=== PATIENT | female | born 1975 | race Caucasian/White ===

== ENCOUNTER 2021-02-02 12:33 | Emergency (ER) | payer OTHER, SELFPAY ==
--- NOTE | ~2021-02-02 | XR_ITS ---
EXAMINATION: XR chest 2V DATE: 02/02/2021 13:13 INDICATION: Shortness of breath. Chest tightness. TECHNIQUE: Frontal and lateral views of the chest were obtained. COMPARISON: Chest 2 views 04/08/2017 FINDINGS: The chest demonstrates clear lungs without pneumonia, pleural effusion, or pneumothorax. Th e heart size is normal. IMPRESSION: 1. No acute cardiopulmonary disease. Reviewed, dictated and finalized at location A.
[2021-02-02 12:40] VITALS: BP 136/86; PULSE 87; RESP 20; TEMP 37.4; O2SAT 98
[2021-02-02 12:41] VITALS: BP 136/86; PULSE 87; RESP 20; TEMP 37.4; O2SAT 98
--- NOTE | 2021-02-02 13:00 | ED.URI ---
HPI - URI/Sore Throat General Chief Complaint: Upper Respiratory Infection Stated Complaint: chest pain,sob,back pain Time Seen by Provider: 02/02/21 13:00 Source: patient Mode of arrival: ambulatory Limitations: no limitations History of Present Illness HPI Narrative: Katiuska Johnson is a 45 yo female with a PMH of depression and HTN comes to express care with URI and left-sided posterior back pain that started 2 to 3 days ago and has gotten continually worse she states now that hurts every time she takes a deep breath and when she tries to raise her hands over her head it causes deep aching pain. She does work out but denies changing anything in her work-up; she has a mild cough in the morning states been, coughing up a lot of mucus; afebrile Related Data Home Medications Medication Instructions Recorded Confirmed levonorgestrel 20 mcg/24 hours (6 1 device I-UTERINE ONCE 10/07/19 06/28/20 yrs) 52 mg intrauterine device omega [id number] oil 1,000 mg 1 cap PO DAILY 10/07/19 06/28/20 (120 mg-180 mg) capsule buspirone 10 mg tablet 10 mg PO DAILY tablet 12/20/19 06/28/20 trazodone 50 mg tablet 50 mg PO DAILY tablet 06/28/20 06/28/20 Allergies Allergy/AdvReac Type Severity Reaction Status Date / Time codeine Allergy Unknown Unknown Verified 10/16/20 14:10 Review of Systems Review of Systems: Narrative: CONSTITUTIONAL: Denies fever, chills, sweats. EYES: Denies visual changes, redness, discharge. ENT: Denies rhinorrhea, mild congestion, sore throat, otalgia. CARDIOVASCULAR: Denies chest pain, palpitations, edema. RESPIRATORY: Denies dyspnea, wheezing, cough GASTROINTESTINAL: Denies abdominal pain, nausea, vomiting, diarrhea. GENITOURINARY: Denies dysuria, hematuria, abnormal discharge SKIN: Denies rash or itching. NEUROLOGIC: Denies numbness, or focal weakness. PSYCHIATRIC: Denies anxiety or depression. Left-sided posterior back pain PMFSH Past Medical History Medical History (Updated 02/02/21 @ 13:34 by Demetria Nicole CNP) Anxiety Cervical dysplasia Depression High cholesterol Missed 2007 Pneumonia 2004 Vaginal delivery 2008 Surgical History Surgical History H/O LEEP 12/12/2014 Hx of laparoscopy 1991 Family History Family History Father Hypertension Patient's father is Family history of elevated blood lipids Family history of lung cancer Mother Family history of elevated blood lipids Family history of malignant neoplasm of cervix Family history of coronary artery disease Hypertension Acute myocardial infarction Depression Cerebrovascular accident Family history of arthritis Family history of lung cancer Family history of malignant neoplasm of male breast Grandparent Family history of malignant neoplasm of ovary, Onset Age: 56 Other Family history of development disorder Family history of heart disease in male family member before age 55 Family history of malignant neoplasm Social History Social History Smoking status: Former smoker Second hand tobacco smoke exposure: No Smoking end date: 10/12/06 Alcohol intake: never Comments At time of signature, I agree with nursing past medical, surgical, social and family history. There is no relevant family history pertinent to the presenting complaint. Exam Narrative: Exam Narrative: GENERAL: This is a well-nourished, well-developed patient, in mild distress. HEAD: normocephalic, atraumatic. EYES: PERRL. Sclera clear/white. Vision is grossly intact. EARS: External ears normal, auditory canals clear and without drainage, TMs normal without perforation. Hearing grossly intact. NOSE: External nose normal without nasal discharge, nares without redness, no rhinorrhea. THROAT: Mucous membranes moist, posterior pharynx
== END 2021-02-02 13:50 | disposition home or self-care (01) ==
PROVIDERS: Emergency Provider Nurse Practitioner; PCP Family Medicine
DX: R07.89 Other chest pain (principal); R05 Cough; Z20.822 Contact with and (suspected) exposure to COVID-19; C41.9 Malignant neoplasm of bone and articular cartilage, unspecified; F32.9 Major depressive disorder, single episode, unspecified; E78.00 Pure hypercholesterolemia, unspecified; N87.9 Dysplasia of cervix uteri, unspecified
CPT/HCPCS: 71046; 87426; 87804; 99213; C9803; G0463

== ENCOUNTER → 2021-04-22 12:41 | Outpatient (CLI) | payer OTHER, SELFPAY ==
--- NOTE | ~2021-04-22 | MM_ITS ---
EXAMINATION: MM screening leonidas BI w zara HISTORY: Screening mammogram, family history of breast cancer in her mother. TECHNIQUE: Craniocaudal and mediolateral oblique 3-D tomosynthesis images were obtained and synthetic 2-D images were generated. CAD analysis was submitted and interpreted. COMPARISON: 10/15/2019, 05/12/2013, 06/13/2010 BREAST PARENCHYMAL COMPOSITION: There are scattered areas of fibroglandular density. FINDINGS: There is no evidence of suspicious mass, calcification, or architectural distortion to sugg est malignancy in either breast. There has been no suspicious interval change. IMPRESSION: 1. No mammographic evidence of malignancy. 2. Recommend routine screening mammography in one year. BI-RADS Category 1: Negative Reviewed, dictated and finalized at location A.
== END ==
PROVIDERS: PCP Family Medicine; Visit Provider Student in an Organized Health Care Education/Training Program
DX: Z12.31 Encounter for screening mammogram for malignant neoplasm of breast (principal)
CPT/HCPCS: 77063; 77067

== ENCOUNTER 2021-12-31 17:36 | Emergency (ER) | payer OTHER, SELFPAY ==
--- NOTE | 2021-12-31 17:37 | ED.URI ---
HPI - URI/Sore Throat General Chief Complaint: Upper Respiratory Infection Stated Complaint: Body Aches, Sore Throat,Congestion,Cough Time Seen by Provider: 12/31/21 18:16 Source: patient and RN notes reviewed Mode of arrival: ambulatory Limitations: no limitations History of Present Illness HPI Narrative: 46-year-old female presents with concern for 1 day history of sore throat, chills, body aches, cough. She reports symptoms started today. 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 She reports she had COVID in September. She denies intervention. MD elicited complaint: sore throat and other (chills) Related Data Home Medications Medication Instructions Recorded Confirmed trazodone 50 mg tablet 50 mg PO DAILY tablet 06/28/20 12/31/21 buspirone 15 mg tablet 15 mg PO ONCE tablet 09/20/21 12/31/21 fluoxetine 40 mg capsule 40 mg PO DAILY cap 09/20/21 12/31/21 levonorgestrel [Mirena] 1 device INTRAUTERINE ONCE 12/31/21 12/31/21 Allergies Allergy/AdvReac Type Severity Reaction Status Date / Time codeine Allergy Unknown Unknown Verified 12/31/21 17:59 Review of Systems Review of Systems: CONSTITUTIONAL: Reports malaise, chills, sweats, fever. EYES: Denies visual changes, redness, or discharge. ENT: Reports rhinorrhea, congestion, sore throat. CARDIOVASCULAR: Denies chest pain, palpitations, or edema. RESPIRATORY: Reports cough. Denies dyspnea. GASTROINTESTINAL: Denies abdominal pain, nausea, vomiting, diarrhea SKIN: Denies rash or itching. MUSCULOSKELETAL: Reports myalgia. NEUROLOGIC: Denies headache. All systems reviewed & are unremarkable except as noted in HPI and below PMFSH Past Medical History Medical History (Updated 12/31/21 @ 18:26 by Joyce Rodriguez NP) Anxiety Cervical dysplasia Depression High cholesterol Missed 2007 Pneumonia 2004 Vaginal delivery 2007 Surgical History Surgical History H/O LEEP 12/12/2014 Hx of laparoscopy 1990 Family History Family History Father Hypertension Patient's father is Family history of elevated blood lipids Family history of lung cancer Mother Family history of elevated blood lipids Family history of malignant neoplasm of male breast Family history of malignant neoplasm of cervix Family history of coronary artery disease Hypertension Acute myocardial infarction Depression Cerebrovascular accident Family history of arthritis Family history of lung cancer Grandparent Family history of malignant neoplasm of ovary, Onset Age: 56 Other Family history of development disorder Family history of heart disease in male family member before age 55 Family history of malignant neoplasm Social History Social History Smoking status: Former smoker Second hand tobacco smoke exposure: No Smoking end date: 10/12/06 Alcohol intake: never Comments At time of signature, agree with nursing past medical, surgical, social and family history. There is no relevant family history pertinent to the presenting complaint Exam Narrative: GENERAL: Nontoxic-appearing and in no acute distress. HEAD: Normocephalic EYES: PERRLA, conjunctivae clear ENT: Nares clear, clear discharge. Mucous membranes moist. TM pearly malagon with sharp light reflex bilaterally; no tragal tenderness. Oropharynx not erythematous without lesions. Tonsils not enlarged and without exudate, no drooling, no hoarseness, no trismus, uvula midline. NECK: Supple. No lymphadenopathy CHEST: Clear to auscultation, breath sounds equal. No wheezing, rhonchi, rales, or stridor. No respiratory distress, speaks in full sentences. HEART: Regular rate and rhythm. No murmur heard. SKIN: Warm, dry, no rash. NEURO: Alert and oriented x3. PSYCH: Normal mood and affect Course Course Emergency Course: Hyun
[2021-12-31 17:52] VITALS: BP 154/98; PULSE 80; RESP 18; TEMP 37.3; O2SAT 100
[2021-12-31 20:06] LABS: SARS-CoV-2 RNA PCR Negative
== END 2021-12-31 18:30 | disposition home or self-care (01) ==
PROVIDERS: Emergency Provider Nurse Practitioner
DX: B34.9 Viral infection, unspecified (principal); Z20.822 Contact with and (suspected) exposure to COVID-19; Z87.891 Personal history of nicotine dependence; E78.00 Pure hypercholesterolemia, unspecified; F41.9 Anxiety disorder, unspecified; F32.A Depression, unspecified
CPT/HCPCS: 87081; 87804; 87880; 99213; C9803; G0463; U0003; U0005

== ENCOUNTER 2022-01-10 01:22 | Day surgery (SDC) | payer OTHER, SELFPAY ==
--- NOTE | 2022-01-09 13:56 | WPDANESEPPF ---
Anes - Initial Pre Proc Eval Procedure: Operation Date: 01/10/22 08:00 Proposed Procedures p Screening Colonoscopy - Neville Olivarez MD Date/Time: 01/09/22 13:56 Surgeon: Neville Olivarez MD Pre Op Diagnosis: neoplasm screening Patient Data Age: 46 Gender: F Height: 1.63 m Weight: 65.9 kg Allergies Allergy/AdvReac Type Severity Reaction Status Date / Time codeine Allergy Intermediate Hives Verified 01/10/22 06:53 Home Medications Medication Instructions Recorded Confirmed Type trazodone 50 mg tablet 50 mg PO HS tablet 06/28/20 01/10/22 History buspirone 15 mg tablet 15 mg PO TID PRN tablet 09/20/21 01/02/22 History fluoxetine 40 mg capsule 40 mg PO DAILY cap 09/20/21 01/02/22 History quinapril 20 mg tablet 20 mg PO DAILY #90 tablet 09/20/21 01/02/22 Rx levonorgestrel [Mirena] 1 device INTRAUTERINE ONCE 12/31/21 01/02/22 History diltiazem HCl 180 mg PO DAILY 01/02/22 01/02/22 History benzonatate 200 mg PO TID PRN #30 cap 01/04/22 01/10/22 Rx Patient hx anesthesia problems: none Family hx anesthesia problems: none Results Review: All pre-operative results and documents have been reviewed as part of the pre-operative evaluation. [facility] Past Medical History Medical History (Updated 01/09/22 @ 13:56 by Blake Vazquez MD) Anxiety Cervical dysplasia Depression High cholesterol Hyperlipidemia Hypertension Missed 2007 Pneumonia 2004 Vaginal delivery 2007 Surgical History Surgical History H/O LEEP 12/12/2014 Hx of laparoscopy 1990 Family History Family History Father Hypertension Patient's father is Family history of elevated blood lipids Family history of lung cancer Mother Family history of elevated blood lipids Family history of malignant neoplasm of male breast Family history of malignant neoplasm of cervix Family history of coronary artery disease Hypertension Acute myocardial infarction Depression Cerebrovascular accident Family history of arthritis Family history of lung cancer Grandparent Family history of malignant neoplasm of ovary, Onset Age: 56 Other Family history of development disorder Family history of heart disease in male family member before age 55 Family history of malignant neoplasm Social History Social History Smoking status: Never smoker Second hand tobacco smoke exposure: No Smoking end date: 10/12/06 Alcohol intake: current Drinks per week: 6 Alcohol use details: social drinker Substance use: current Substance use type: marijuana Living arrangements: with family Spiritual care concerns: No Anes - Eval Final PreProcedure Day of Procedure 01/09/22 13:56 Patient weight: normal Heart: regular rate and rhythm Lungs: clear to auscultation and normal air movement Airway: Mallampati scale class II Neurological: alert and oriented Last oral intake: >/= 8 hours ASA classification: II Emergent: no Anesthetic plan: proceed Anesthesia type and monitoring: general GIVS Results Review: All pre-operative results and documents have been reviewed as part of the pre-operative evaluation. Informed Consent: The patient's anesthetic plan and its attendant risks and benefits were discussed with the patient/family/POA. Questions were solicited and answers provided to the satisfaction of the patient/family/POA.
[2022-01-10 06:55] VITALS: BP 150/97; PULSE 69; RESP 16; TEMP 36.9; O2SAT 97
[2022-01-10] MEDS: LACTATED RINGERS 1,000 ML 150 ML IV CONT (07:13)
--- NOTE | 2022-01-10 07:51 | PM.HPGS ---
History of Present Illness History of Present Illness Consent: Risks, benefits, and alternatives have been discussed and questions answered. Patient agrees to proceed with procedure. Chief complaint: neoplasm screening Narrative: Katiuska Johnson is a 46 year old female here for screening colonoscopy Review of Systems Constitutional: Constitutional: Denies headache(s) and Denies weakness Eyes: Eyes: Denies blurry vision ENT: Reports Normal hearing present, Denies headache(s) and Denies neck pain Cardiovascular: Cardiovascular: Denies chest pain and Denies dyspnea Respiratory: Respiratory: Denies dyspnea Gastrointestinal: Gastrointestinal: Reports no additional gastrointestinal complaints Genitourinary: Genitourinary: Denies dysuria Musculoskeletal: Musculoskeletal: Denies neck pain Integumentary/Breasts: Skin/Breast: Denies dry skin Neurologic: Reports Normal hearing present, Denies headache(s) and Denies weakness Psychiatric: Psychiatric: Denies anxiety Endocrine: Endocrine: Denies change in body appearance Hematologic/Lymphatic: Hematologic/Lymphatic: Denies easy bleeding Allergic/Immunologic: Allergic/Immunologic: Denies urticaria PMF Past Medical History Medical History (Updated 01/10/22 @ 07:52 by Neville Olivarez MD) Anxiety Cervical dysplasia Colon cancer screening Depression High cholesterol Hyperlipidemia Hypertension Missed 2007 Pneumonia 2004 Vaginal delivery 2007 Surgical History Surgical History H/O LEEP 12/12/2014 Hx of laparoscopy 1991 Family History Family History Father Hypertension Patient's father is Family history of elevated blood lipids Family history of lung cancer Mother Family history of elevated blood lipids Family history of malignant neoplasm of male breast Family history of malignant neoplasm of cervix Family history of coronary artery disease Hypertension Acute myocardial infarction Depression Cerebrovascular accident Family history of arthritis Family history of lung cancer Grandparent Family history of malignant neoplasm of ovary, Onset Age: 56 Other Family history of development disorder Family history of heart disease in male family member before age 55 Family history of malignant neoplasm Social History Social History Smoking status: Never smoker Second hand tobacco smoke exposure: No Smoking end date: 10/12/06 Alcohol intake: current Drinks per week: 6 Alcohol use details: social drinker Substance use: current Substance use type: marijuana Living arrangements: with family Spiritual care concerns: No Meds Home Medications and Allergies Home Medications Medication Instructions Recorded Confirmed Type trazodone 50 mg tablet 50 mg PO HS tablet 06/28/20 01/10/22 History buspirone 15 mg tablet 15 mg PO TID PRN tablet 09/20/21 01/02/22 History fluoxetine 40 mg capsule 40 mg PO DAILY cap 09/20/21 01/02/22 History quinapril 20 mg tablet 20 mg PO DAILY #90 tablet 09/20/21 01/02/22 Rx levonorgestrel [Mirena] 1 device INTRAUTERINE ONCE 12/31/21 01/02/22 History diltiazem HCl 180 mg PO DAILY 01/02/22 01/02/22 History benzonatate 200 mg PO TID PRN #30 cap 01/04/22 01/10/22 Rx Allergies Allergy/AdvReac Type Severity Reaction Status Date / Time codeine Allergy Intermediate Hives Verified 01/10/22 06:53 Vital Signs Vital Signs - 24 hr 01/10/22 06:55 Temperature 98.4 F Pulse Rate 69 Respiratory Rate 16 Blood Pressure 150/97 H Pulse Oximetry 97 Exam Const: General: comfortable and no acute distress HENMT: General nose exam: Normal nares present Eyes: General: appearance normal, both eyes and all related structures Neck: Neck: no JVD Resp: Auscultation: clear to a
[2022-01-10 08:13] VITALS: BP 119/87; PULSE 61; RESP 14; O2SAT 100
[2022-01-10 08:23] VITALS: BP 131/91; PULSE 60; RESP 13; O2SAT 99
[2022-01-10 08:33] VITALS: BP 141/87; PULSE 62; RESP 18; O2SAT 99
== END 2022-01-10 08:53 | disposition home or self-care (01) ==
PROVIDERS: Visit Provider Internal Medicine Gastroenterology
PROC: 0DJD8ZZ Inspection of Lower Intestinal Tract, Via Natural or Artificial Opening Endoscopic (ICD-10-PCS; CPT 45378; principal; 2022-01-10 08:00)
DX: Z12.11 Encounter for screening for malignant neoplasm of colon (principal); K57.30 Diverticulosis of large intestine without perforation or abscess without bleeding; K64.8 Other hemorrhoids; I10 Essential (primary) hypertension; E78.5 Hyperlipidemia, unspecified; F41.8 Other specified anxiety disorders; F12.90 Cannabis use, unspecified, uncomplicated
CPT/HCPCS: 45378; J2001; J2704; J7120

== ENCOUNTER → 2022-07-17 08:05 | Outpatient (CLI) | payer OTHER, SELFPAY ==
--- NOTE | ~2022-07-17 | US_ITS ---
EXAMINATION: US abdomen complete DATE: 07/17/2022 08:30 INDICATION: Abdominal pain. TECHNIQUE: Multiple grayscale and Doppler ultrasound images of the abdomen were obtained. COMPARISON: None FINDINGS: The spleen is normal in size. The kidneys are normal in size. Abdominal aorta is normal in caliber. Inferior vena cava is normal. The visualized portions of the head of the pancreas are normal . The liver is normal without focal lesion. No liver surface nodularity. There is normal flow in main portal vein. The gallbladder is normal in size. No gallstones or gallbladder wall thickening. There was no sonographic Henriquez sign. The common duct is normal and measures 4 mm. IMPRESSION: 1. Normal complete abdomen ultrasound. Reviewed, dictated and finalized at location A.
== END ==
PROVIDERS: PCP Nurse Practitioner; Visit Provider Nurse Practitioner
DX: R10.9 Unspecified abdominal pain (principal)
CPT/HCPCS: 76700

== ENCOUNTER 2022-10-10 13:57 | Emergency (ER) | payer OTHER, SELFPAY ==
[2022-10-10 14:06] VITALS: BP 139/89; PULSE 70; RESP 16; TEMP 36.5; O2SAT 99
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
== END 2022-10-10 14:24 | disposition home or self-care (01) ==
PROVIDERS: Emergency Provider Nurse Practitioner; PCP Nurse Practitioner
DX: H57.11 Ocular pain, right eye (principal); Z87.891 Personal history of nicotine dependence; E78.5 Hyperlipidemia, unspecified; I10 Essential (primary) hypertension; F41.9 Anxiety disorder, unspecified; F32.A Depression, unspecified
CPT/HCPCS: 99213; G0463

== ENCOUNTER 2023-12-09 08:33 | Emergency (ER) | payer OTHER, SELFPAY ==
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
[2023-12-09 08:41] VITALS: BP 155/92; PULSE 84; RESP 18; TEMP 36.3; O2SAT 100
[2023-12-09] MEDS: KETOROLAC (*BKC) 60 MG/2 ML VIAL IM (08:53)
--- NOTE | 2023-12-09 08:56 | PC.NURSE ---
Pt to CT scan via stretcher at this time.
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
[2023-12-09 09:50] VITALS: BP 148/93; PULSE 69; RESP 18; O2SAT 100
== END 2023-12-09 09:51 | disposition home or self-care (01) ==
PROVIDERS: Emergency Provider Emergency Medicine
DX: S16.1XXA Strain of muscle, fascia and tendon at neck level, initial encounter (principal); R51.9 Headache, unspecified; E78.5 Hyperlipidemia, unspecified; I10 Essential (primary) hypertension; F43.10 Post-traumatic stress disorder, unspecified; F41.9 Anxiety disorder, unspecified; F32.A Depression, unspecified; Z87.01 Personal history of pneumonia (recurrent); Z87.891 Personal history of nicotine dependence; M47.812 Spondylosis without myelopathy or radiculopathy, cervical region; V43.52XA Car driver injured in collision with other type car in traffic accident, initial encounter
CPT/HCPCS: 70450; 72125; 96372; 99284; J1885; L0140

== ENCOUNTER 2024-12-17 12:34 | Emergency (ER) | payer OTHER, SELFPAY ==
--- NOTE | ~2024-12-17 | XR_ITS ---
XR hip RT 2V w AP pelvis Ordering provider: Susan Fernandez APRN History: . rt hip pain, no trauma . Comparison: None. FINDINGS: BONES: No definite acute fracture or dislocation. Lucency is seen in the area of the greater trochant er. Clinical evaluation for tenderness in the area advised. If clinically warranted CT is advised. Postoperative changes in the femur. HIP JOINT SPACES: Normal. SACROILIAC JOINT SPACES/LUMBAR SPINE: The sacroiliac joint spaces are normal. Normal visualized lower lumbar spine. PUBIC SYMPHYSIS: Normal. SOFT TISSUES: Normal. IMPRESSION: No definite acute osseous abnormality pelvis and right hip. Possible lucency in the area of the right greater trochanter. Reviewed, dictated and finalized at location A.
--- NOTE | ~2024-12-17 | XR_ITS ---
EXAMINATION: XR lumbar spine 2-3V DATE: 12/17/2024 13:58 INDICATION: Low back pain. TECHNIQUE: 3 views of lumbar spine were obtained. COMPARISON: None. FINDINGS: Alignment is normal. Vertebral body heights are normal. There is mildly decreased disc heig ht at L3-L4 and L4-L5. There is multilevel facet joint osteoarthritis, moderate in lower lumbar spine . There is an intrauterine device in expected position. IMPRESSION: 1. Mild lumbar spondylosis. Reviewed, dictated and finalized at location A. UREMENT BUYER IMPRESSION: 1. Mild lumbar spondylosis.
--- OUTSIDE RECORDS SUMMARY | 2024-12-17 12:37 | XMS_ITS | Encounter Summary ---
Author Organization [facility] Health Address [address] [place] [address] Care Team Providers Care Product Marketing Intern Name Role Phone Geena Avila Primary Care Provider [phone] Solange Sandoval MD Primary Care Provider Encounter Details Date Type Department Care Team (Late st Contact Info) Description 04/15/2022 Ophth Exam [facility] [address] [place] [address] Tej Hall MD [facility] [address] [address] Social History Tobacco Use Types Packs/Day Years Used Date Smoking Tobacco: Former Smokeless Tobacco: Never Alcohol Use Standard Drinks/Week Comments Yes 0 (1 standard drink = 0.6 oz pur e alcohol) socially AUDIT-C Answer Date Recorded Q1: How often do you have a drink containing alcohol? 4 or more times a week 04/14/2022 Q2: How many drinks containi ng alcohol do you have on a typical day when you are drinking? 1 or 2 2 Q3: How often do you have si x or more drinks on one occasion? Monthly 04/14/2022 Hunger Vital Sign Answer Date Recorded Within the past 12 months, y ou worried that your food would run out before you got the money to buy more. Never true 04/15/20 22 Within the past 12 months, t he food you bought just didn't last and you didn't have money to get more. Never true 04/15/2022 Sex and Gender Information Value Date Recorded Sex Assigned at Not on file Gender Identity Not on file Sexual Orientation Not on file documented as of this encounter Functional Status Functional Status Response Date of Assess ment Is person deaf or have serious hearing difficult y? No 04/13/2022 Is person blind or have serious difficulty seein g? No 04/13/2022 Does person have serious dif ficulty walking/climbing stairs? No 04/13/2022 Does person have difficulty dressing/bathing? No 04/13/2022 Does person have difficulty doing errands alone? No 04/13/2022 Cognitive Status Response Date of Assessm ent Does person have difficulty concentrating/remembering/making decisions? No 04/13/2022 documented as of this encounter Plan of Treatment Not on file documented as of this encounter Visit Diagnoses Not on filedocumented in this encounter Care Teams Product Marketing Intern Relationship Specialty Start Date End Date Geena Avila, FAMILY AND CONSUMER SCIENCE PROFESSOR-LAY OUT INSPECTOR [address] [place] [address] PCP - General 06/10/22 09/01/24 Solange Sandoval MD [address] [facility] [address] [place] [id number] PCP - General Internal Medicine 09/02/24 documented as of this encounter
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
--- OUTSIDE RECORDS SUMMARY | 2024-12-17 12:37 | XMS_ITS ---
Author Organization [facility] [employer] Address [address] [facility] [address] [place] [address] Care Team Providers Care Interior Design Assistant Name Role Phone Jaime TAVERAS, Solange Primary Care Provider Un available Darlene Hill Unavailable [phone] LobitoCami Unavailable [phone] REASON FOR VISIT Therapy Visit, anxiety, depression, trauma, ADHD Medications Medication SIG (Take, Route, Frequency, Duration) Notes Start Date End Date Status buPROPion HCl 100 MG Oral 03/01/2024 Not-Taking Benzonatate 200 MG Oral 03/01/2024 Not-Taking traMADol HCl 50 MG Oral 03/01/2024 Not-Taking Sulfamethoxazole-Trim ethoprim 800-160 MG Oral 03/01/2024 Not-Taki ng Cyclobenzaprine HCl 10 MG Oral 03/01/2024 Not-Taking Quinapril HCl 20 MG Oral 03/01/2024 Not-Taking CALCIUM 200 MG ( CALCIUM CARBONATE 500 MG) CHEWABLE TABLET *Reorder from [employer] for eRx and Interaction Alerts* 03/01/2024 Not-Taking HYDROcodone-Acetamino phen 5-325 MG Oral 03/01/2024 Not-Taking Naproxen 375 MG Oral 03/01/2024 Not -Taking Atorvastatin Calcium 40 MG 1 tablet Oral Once a day 03/01/2024 Active FLUoxetine HCl 20 MG 1 capsule Oral Once a day for 90 days 03/01/2024 Active traZODone HCl 100 MG 1 tablet at bedtime Oral bedtime for 90 days Active dilTIAZem HCl ER 180 mg Oral *Reorder from [employer] for eRx and Interaction Alerts* 03/01/2024 Active buPROPion HCl ER (XL) 300 MG 1 tablet daily Oral Once a day for 90 days Appointment needed Active FLUoxetine HCl 40 MG 1 capsule Oral Once a day for 90 days 03/01/2024 Active Prazosin HCl 1 MG 1 capsule at bedtime Orally Once a day for 90 days Active busPIRone HCl 15 MG 1 tablet Oral three times a day for 90 days Active hydrOXYzine HCl 10 MG 1 tablet as needed Orally three times a day for 90 days Active Social History Tobacco Use: Social History Observation Description Date Details (start date - stop date) Never Smoker NA - NA Sex Assigned At : Social History Observation Description Sex Assigned At Female Tobacco Control (Standard) Question Answer Notes Tobacco use: Nonsmoker How long has it been since you last smoked? Danielle ter than 10 years Encounters Encounter Location Date Provider Diagnosis [facility] [employer] [address] [facility] [address] [place] [address] 12/06/2024 Cami Robin Major depressive disorder, recurrent, mild F33.0 ; Generalized anxiety disorder F41.1 ; Chronic posttraumatic stress disorder F43.12 and Attention-deficit hyperactivity disorder, predominantly inattentive type F90.0 Assessments Encounter Date Diagnosis (ICD Code) Assessment Notes Treatment Notes Treatment Clinical Notes Section Notes 12/06/2024 Major depressive disorder, recurrent, mild (ICD-10 - F33.0) 12/06/2024 Generalized anxiety disorder (ICD-10 - F41.1) 12/06/2024 Chronic posttraumatic stress disorder (ICD-10 - F43.12) 12/06/2024 Attention-deficit hyperactivity disorder, predominantly inattentive type (ICD-10 - F90.0) 12/06/2024 Other Client reports she was able to get into a school 1 day a week (due to the father not signing the school papers on time). The next court hearing is 01/06/25. Client reports she has been feeling overwhelmed by this continuing issue with her daughter's father and how he does not do what is best for their 16 y/o daughter. Client worries about her daughter's future and wants her to live the fulliest life possible. Therapist actively listened to client and utilized a cognitive intervention to help client explore strategies to better manage self talk. Plan Of Treatment Next Appt Details Follow Up: 2 Weeks, Reason: therapy follow up Provider Name:Cami Robin , 12/19/2024 04:00:00 PM, [address], [place] [address], [place], [address], Provider Name:Cami Robin , 01/05/2025 04:00:00 PM, [address], [place] [address], [place], [address], Provider Name:Cami Robin , 01/17/2025 04:00:00 PM, [address], [place] [address], [place], [address], Provider Name:Darlene Hill , 02/17/2025 04:00:00 PM, [address], [place] [address], [place], [address], Progress Notes * JASWINDER GOMEZB:1975 (49 yo F)Acc No.[id number]:12/06/2024 Patient: OSCAR VEGAFer Provider: Etta ROBIN LCSW :1975 A ge:49 Y S ex:Female Date:12/06/2024 Address:[address] [place] [address] [facility] Pcp:Solange Sandoval MD Data: * Time Tracker: * Date Start Time End Time Duration User Type Captured By Mode Notes 12/06/2024 04:01 PM 04:54 PM 00:53:00 Therapist Cami Robin M anual * Chief Complaints: * 1 . Therapy Visit. 2. Anxiety. 3. Depression. 4. Trauma. 5. ADHD. * HPI: F unctional Status: Client is here today for psychotherapy to treat anxiety, depression, trauma, and ADHD issues. Based on our session, I think the patient is making moderate progress. At this time I do not recommend changes to the treatment plan. I do not think the patient poses significant risk of harm to self or others at this time. Discussed continued treatment with patient. * Behavioral History: P ast psychiatric Hospitalization:No. H istory of suicidal attempt?:No. * Family History: Ruthy haddad Uncle: Substance abuse , Depressive disorder , Alcohol abuse , Schizophrenia . D nicolettehter: Autistic disorder , Anxiety disorder . * Social History: T obacco Use: T obacco Control (Standard) T obacco use: N onsmoker, H ow long has it been since you last smoked? G reater than 10 years. * Medications: T aking Prazosin HCl 1 MG Capsule 1 capsule at bedtime Orally Once a day , Taking hydrOXYzine HCl 10 MG Tablet 1 tablet as needed Orally three times a day , Taking busPIRone HCl 15 MG Tablet 1 tablet Oral three times a day , stop date 02/20/2025, Taking traZODone HCl 100 MG Tablet 1 tablet at bedtime Oral bedtime , Taking FLUoxetine HCl 20 MG Capsule 1 capsule Oral Once a day , Taking FLUoxetine HCl 40 MG Capsule 1 capsule Oral Once a day , Taking buPROPion HCl ER (XL) 300 MG Tablet Extended Release 24 Hour 1 tablet daily Oral Once a day , Notes to Pharmacist: Appointment needed, Taking dilTIAZem HCl ER 180 mg Capsule Extended Release 24 Hour Oral , Notes to Pharmacist: *Reorder from [employer] for eRx and Interaction Alerts*, Taking Atorvastatin Calcium 40 MG Tablet 1 tablet Oral Once a day , Not-Taking HYDROcodone-Acetaminophen 5-325 MG Tablet Oral , Not-Taking CALCIUM 200 MG ( CALCIUM CARBONATE 500 MG) CHEWABLE TABLET , Notes to Pharmacist: *Reorder from [employer] for eRx and Interaction Alerts*, Not-Taking Quinapril HCl 20 MG Tablet Oral , Not-Taking Naproxen 375 MG Tablet Oral , Not-Taking traMADol HCl 50 MG Tablet Oral , Not-Taking Benzonatate 200 MG Capsule Oral , Not-Taking buPROPion HCl 100 MG Tablet Oral , Not-Taking Cyclobenzaprine HCl 10 MG Tablet Oral , Not-Taking Sulfamethoxazole-Trimethoprim 800-160 MG Tablet Oral , Medication List reviewed and reconciled with the patient * Examination: P sychiatry: C lient is casually groomed and oriented X 3. Assessment: * Assessment: 1. M ajor depressive disorder, recurrent, mild - F33.0 (Primary) 2 . G eneralized anxiety disorder - F41.1 3 . C hronic posttraumatic stress disorder - F43.12 4 . A ttention-deficit hyperactivity disorder, predominantly inattentive type - F90.0 Plan: * Treatment: * Procedure Codes: 9 0837 PSYCHOTHERAPY W/PATIENT 60 MINUTES * Follow Up: 2 Weeks (Reason: therapy follow up) * Billing Information: * Visit Code: * Procedure Codes: 11392 PSYCHOTHERAPY W/PATIENT 60 MINUTES. * BOX MECHANIC Sign off status: Completed Signatures: No Ad Hoc Signature Added true * Provider: Etta ROBIN LCSW Date: 0 12/06/2024 Generated for Madison guerrero/Oswald/Billy on: 0 12/17/2024 12:37 PM JUKE BOX MECHANIC History and Physical Notes * Examination Category Sub-Category Detail Notes Category Not es Psychiatry Client is casua lly groomed and oriented X 3
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
--- OUTSIDE RECORDS SUMMARY | 2024-12-17 12:37 | XMS_ITS | Encounter Summary ---
Author Organization [facility] Address [address] [place] [address] Care Team Providers Care Pickle Maker Name Role Phone Geena Avila Primary Care Provider [phone] Solange Sandoval MD Primary Care Provider Encounter Details Date Type Department Care Team (Late st Contact Info) Description 04/17/2022 Ophth Exam [facility] [address] [place] [address] Tej Hall MD [facility] [address] Social History Tobacco Use Types [...] on filedocumented in this encounter Care Teams Pickle Maker Relationship Specialty Start Date End Date Geena Avila, UTILITY OPERATOR [employer] [address] [place] [address] PCP - General 06/10/22 09/01/24 Solange Sandoval MD [address] [facility] [address] [place] [id number] PCP - General Internal Medicine 09/02/24 documented as of this encounter
--- OUTSIDE RECORDS SUMMARY | 2024-12-17 12:37 | XMS_ITS | Patient Health Summary ---
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 mL/min/1.7 3 m2 09/03/2024 5:33 AM [facility] Blood BLOOD SPECIMEN / Unknown Lab Venipuncture / Unknown 09/03/2024 4:56 AM CREDIT ASSOCIATE 09/03/2024 5:06 AM CREDIT ASSOCIATE Breanne Zafar MD LAB - CHEMISTRY ORDERABLES [facility] [address] [place] [address], [facility] [phone] * (ABNORMAL) PHOSPHORUS BLOOD (09/03/2024 4:56 AM CREDIT ASSOCIATE) Only the most recent of9 resultswithin the time period is included. Phosphorus 2.8(L) 2.9 - 5.1 mg/dL 09/03/2024 5:33 AM [facility] Blood BLOOD SPECIMEN / Unknown Lab Venipuncture / Unknown 09/03/2024 4:56 AM CREDIT ASSOCIATE 09/03/2024 5:06 AM CREDIT ASSOCIATE Breanne Zafar MD LAB - CHEMISTRY ORDERABLES Performing Organization Address City/[facility]/ZIP Co de Phone Number [address] [address], [facility] [phone] * MAGNESIUM BLOOD (09/03/2024 4:56 AM CREDIT ASSOCIATE) Only the most recent of8 resultswithin the time period is included. Magnesium 2.3 1.6 - 2.6 mg/dL 09/03/2024 5:33 AM CREDIT ASSOCIATE [facility] Blood BLOOD SPECIMEN / Unknown Lab Venipuncture / Unknown 09/03/2024 4:56 AM CREDIT ASSOCIATE 09/03/2024 5:06 AM CREDIT ASSOCIATE Breanne Zafar MD LAB - CHEMISTRY ORDERABLES Performing Organization Address [facility] Co de Phone Number [address] [address], [facility] [phone] * CULTURE FUNGUS OTHER+FUNGUS SMEAR (09/02/2024 9:29 PM CREDIT ASSOCIATE) Only the most recent of2 resultswithin the time period is included. Culture No fungus isolated ABNER 10/03/2024 5:31 AM CREDIT ASSOCIATE [facility] Fungus Stain No yeast or hyphae seen 10/03/2024 5:31 AM [facility] Microbiology ENTIRE LOWER LIMB / Unknown Collection / Unknown 09/02/2024 9:29 PM CREDIT ASSOCIATE 09/02/2024 9:33 PM CREDIT ASSOCIATE Breanne Zafar MD LAB - MICROBIOL OGY ORDERABLES [facility] [address] [place] [address], [facility] [phone] * CULTURE WOUND+GRAM STAIN (09/02/2024 9:29 PM CREDIT ASSOCIATE) Only the most recent of2 resultswithin the time period is included. Culture No growth ABNER 09/05/2024 2:26 AM CREDIT ASSOCIATE [facility] Gram Stain Light Polymorphonuclear cells 09/05/2024 2:26 AM CREDIT ASSOCIATE [facility] Gram Stain No organisms seen 024 2:26 AM [facility] Microbiology ENTIRE LOWER LIMB / Unknown Collection / Unknown 09/02/2024 9:29 PM CREDIT ASSOCIATE 09/02/2024 9:33 PM CREDIT ASSOCIATE Breanne Zafar MD LAB - MICROBIOL OGY ORDERABLES Performing Organization Address [facility] Co de Phone Number [facility] [address] [place] [address], [facility] [phone] * CULTURE ANAEROBE (09/02/2024 9:29 PM CREDIT ASSOCIATE) Only the most recent of2 resultswithin the time period is included. Culture No anaerobic organisms isolated ABNER 09/09/2024 3:39 PM CREDIT ASSOCIATE [facility] Microbiology ENTIRE LOWER LIMB / Unknown Collection / Unknown 09/02/2024 9:29 PM CREDIT ASSOCIATE 09/02/2024 9:33 PM CREDIT ASSOCIATE Breanne Zafar MD LAB - MICROBIOL OGY ORDERABLES Performing Organization Address [facility] Phone Number [facility] [address] [place] [address], [facility] [phone] * ETT LINE PERFORMABLE (09/02/2024 8:39 PM CREDIT ASSOCIATE) Narrative Nicola Dhillon DO - 09/02/2024 8:39 PM CREDIT ASSOCIATE Nicola Dhillon DO 09/02/2024 8:40 PM Endotracheal Tube Placement: Patient Location: OR. Intubation Event Date/Time: 09/02/2024 8:38 PM Procedure: intubation (06519) Procedure Section: Sedation: under general anesthesia. Indications for Airway Management: anesthesia Procedure pretreatments used? No Induction: rapid sequence Patient Position: sniffing and supine Mask Ventilation: easy with oral airway. Blade Type: Moody Blade Size: 3 Laryngoscopy View: grade 1 (full cords) Intubation Adjuncts: stylet and cricoid pressure Tube: endotracheal tube Placement: oral Tube type: cuff - inflated Tube Size (MM): 7 Depth of Insertion (CM): 19 Measured From: lips Cuff Inflated With: air Number of Attempts: 1. Placement Verified By: direct visualization, bilateral breath sounds, chest auscultation and CO2 monitor Tube secured with: adhesive tape. Dentition unchanged? Yes Difficult Airway? No. Procedure Start Time: 09/02/2024 8:38 PM. Staff Section Anesthesia Provider: Nicola Dhillon DO, Performed the procedure Manuel Miller MD GENERAL ANESTHESIA O RDERABLES * HCG URINE QUALITATIVE - POCT (IP) INTERFACED (09/02/2024 8:18 PM CREDIT ASSOCIATE) Only the most recent of2 resultswithin the time period is included. HCG Qual Urine Negative Negative 09/02/2024 8:25 PM CREDIT ASSOCIATE [facility] Urine URINE / Unknown 09/02/2024 8 :18 PM CREDIT ASSOCIATE 09/02/2024 8:25 PM CREDIT ASSOCIATE Breanne Zafar MD LAB - POINT OF CARE ORDERABLES Performing Organization Address City/[facility]/ZIP Co de Phone Number [facility] [address] [address], [place] [phone] * TYPE + SCREEN PANEL (09/02/2024 8:13 PM CREDIT ASSOCIATE) Only the most recent of3 resultswithin the time period is included. Antibody Screen NEG 9:01 PM CREDIT ASSOCIATE [facility] ABO Rh O POS 09/02/2024 9:01 PM CREDIT ASSOCIATE [facility] Blood Bank BLOOD SPECIMEN / Unknown Venipuncture / Unknown 09/02/2024 8:13 PM CREDIT ASSOCIATE 09/02/2024 8:17 PM CREDIT ASSOCIATE Breanne Zafar MD LAB - BLOOD BAN K ORDERABLES Performing Organization Address City/[facility]/ZIP Co de Phone Number [facility] [address] [place] [phone], [place] [phone] * HCG URINE QUAL POCT NOTIFICATION (09/02/2024 7:48 PM CREDIT ASSOCIATE) Only the most recent of2 resultswithin the time period is included. Comment Notification Label Only - See Separate Report 09/02/2024 9:01 PM CREDIT ASSOCIATE [facility] Urine URINE / Unknown 09/02/2024 7 :48 PM CREDIT ASSOCIATE 09/02/2024 7:48 PM CREDIT ASSOCIATE Manuel Miller MD LAB - URINALYSIS ORD ERABLES Performing Organization Address City/[facility]/ZIP Co de Phone Number [address] [address], [facility] [phone] * (ABNORMAL) C-REACTIVE PROTEIN (09/02/2024 12:31 PM CREDIT ASSOCIATE) Pathologist [facility] C-Reactive Protein 11.9(H) <=0.5 mg/dL 09/02/2024 1:11 PM CREDIT ASSOCIATE [facility] Blood BLOOD SPECIMEN / Unknown Venipuncture / Unknown 09/02/2024 12:31 PM CREDIT ASSOCIATE 09/02/2024 12:37 PM CREDIT ASSOCIATE Panchito Gracia DO LAB - CHEMISTRY ORDE BYRON Performing Organization Address [facility]/ZIP Co de Phone Number [address] [address], [place] [phone] * CK BLOOD (09/02/2024 12:31 PM CREDIT ASSOCIATE) Pathologist [facility] CK Total 96 30 - 200 U/L 09/02/2024 1:11 PM CREDIT ASSOCIATE [facility] Blood BLOOD SPECIMEN / Unknown Venipuncture / Unknown 09/02/2024 12:31 PM CREDIT ASSOCIATE 09/02/2024 12:37 PM CREDIT ASSOCIATE Panchito Gracia DO LAB - CHEMISTRY ORDE BYRON Performing Organization Address [facility]/ZIP Co de Phone Number [address] [address], [place] [phone] * XR Femur Right 2Vw (09/02/2024 12:21 PM CREDIT ASSOCIATE) Only the most recent of9 resultswithin the time period is included. Anatomical Region Laterality Modality Lower Extremity Digital Radiogra phy 09/02/2024 1:21 PM CREDIT ASSOCIATE Impressions 09/02/2024 2:17 PM CREDIT ASSOCIATE IMPRESSION: Unchanged alignment of the internally fixated healing mid shaft femoral fracture. No new femur fracture identified. Hardware appears intact. No acute fracture or dislocation of the knee. Report dictated by Keeley Mancia MD, (founder ceo & president). IGwyn MD have personally reviewed and interpreted this examination/study. > Interpreting Provider: Gwyn Denton MD on 09/02/2024 2:17 PM Narrative 09/02/2024 2:17 PM CREDIT ASSOCIATE PROCEDURE: XR FEMUR RIGHT 2VW, XR KNEE RIGHT 2VW OR LESS, DATE/TIME OF EXAM: 09/02/2024 12:21 PM, LOCATION [facility] INDICATION: M79.89: Leg swelling ADDITIONAL CLINICAL INFORMATION: Ordering Provider Reason For Exam: fx COMPARISON: Right thigh radiographs from 11/26/2022. FINDINGS: Femur radiograph: *An IUD is visualized in the lower pelvis. *Scattered surgical clips in the left groin. Redemonstration of intramedullary nail and screws in the femoral shaft. Hardware is well aligned without evidence of fracturing. No periprosthetic lucencies are seen. Solid bridging callus formation is noted at the fracture site. No new fractures are seen. The femoral head is well-seated within the acetabulum. Small osteophytes are seen along the distal femur. Knee radiograph: Femoral intramedullary nail and screw are partially visualized. Hardware is well aligned without evidence of fracturing. No periprosthetic lucencies are seen. There is small osteophyte formation along the lateral distal femur. The knee joint spaces are preserved. No joint effusion is seen. Procedure Note Gwyn Denton MD - 09/02/2024 PROCEDURE: XR FEMUR RIGHT 2VW, XR KNEE RIGHT 2VW OR LESS, DATE/TIME OF EXAM: 09/02/2024 12:21 PM, LOCATION [facility] INDICATION: M79.89: Leg swelling ADDITIONAL CLINICAL INFORMATION: Ordering Provider Reason For Exam: fx COMPARISON: Right thigh radiographs from 11/26/2022. FINDINGS: Femur radiograph: *An IUD is visualized in the lower pelvis. *Scattered surgical clips in the left groin. Redemonstration of intramedullary nail and screws in the femoral shaft. Hardware is well aligned without evidence of fracturing. Noperiprosthetic lucencies are seen. Solid bridging callus formation is noted at the fracture site. No new fractures are seen. The femoral head is well-seated within the acetabulum. Small osteophytes are seen along the distal femur. Knee radiograph: Femoral intramedullary nail and screw are partially visualized. Hardwareis well aligned without evidence of fracturing. No periprosthetic lucencies are seen. There is small osteophyte formation along the lateral distal femur. The knee joint spaces are preserved. No joint effusion is seen. IMPRESSION: Unchanged alignment of the internally fixated healing mid shaft femoral fracture. No new femur fracture identified. Hardware appears intact. No acute fracture or dislocation of the knee. Report dictated by Keeley Mancia MD, (founder ceo & president). Gwyn Monroe MD have personally reviewed and interpreted this examination/study. > Interpreting Provider: Gwyn Denton MD on 09/02/2024 2:17 PM Panchito R Basil DO DIAGNOSTIC IMAGING O RDERABLES * XR Knee Right 2Vw or Less (09/02/2024 12:21 PM CREDIT ASSOCIATE) Only the most recent of3 resultswithin the time period is included. Anatomical Region Laterality Modality Lower Extremity Digital Radiogra phy 09/02/2024 1:21 PM CREDIT ASSOCIATE Impressions 09/02/2024 2:17 PM CREDIT ASSOCIATE IMPRESSION: Unchanged alignment of the internally fixated healing mid shaft femoral fracture. No new femur fracture identified. Hardware appears intact. No acute fracture or dislocation of the knee. Report dictated by Keeley Mancia MD, (founder ceo & president). Gwyn Monroe MD have personally reviewed and interpreted this examination/study. > Interpreting Provider: Gwyn Denton MD on 09/02/2024 2:17 PM Narrative 09/02/2024 2:17 PM CREDIT ASSOCIATE PROCEDURE: XR FEMUR RIGHT 2VW, XR KNEE RIGHT 2VW OR LESS, DATE/TIME OF EXAM: 09/02/2024 12:21 PM, LOCATION [facility] INDICATION: M79.89: Leg swelling ADDITIONAL CLINICAL INFORMATION: Ordering Provider Reason For Exam: fx COMPARISON: Right thigh radiographs from 11/26/2022. FINDINGS: Femur radiograph: *An IUD is visualized in the lower pelvis. *Scattered surgical clips in the left groin. Redemonstration of intramedullary nail and screws in the femoral shaft. Hardware is well aligned without evidence of fracturing. No periprosthetic lucencies are seen. Solid bridging callus formation is noted at the fracture site. No new fractures are seen. The femoral head is well-seated within the acetabulum. Small osteophytes are seen along the distal femur. Knee radiograph: Femoral intramedullary nail and screw are partially visualized. Hardware is well aligned without evidence of fracturing. No periprosthetic lucencies are seen. There is small osteophyte formation along the lateral distal femur. The knee joint spaces are preserved. No joint effusion is seen. Procedure Note Gwyn Denton MD - 09/02/2024 PROCEDURE: XR FEMUR RIGHT 2VW, XR KNEE RIGHT 2VW OR LESS, DATE/TIME OF EXAM: 09/02/2024 12:21 PM, LOCATION [facility] INDICATION: M79.89: Leg swelling ADDITIONAL CLINICAL INFORMATION: Ordering Provider Reason For Exam: fx COMPARISON: Right thigh radiographs from 11/26/2022. FINDINGS: Femur radiograph: *An IUD is visualized in the lower pelvis. *Scattered surgical clips in the left groin. Redemonstration of intramedullary nail and screws in the femoral shaft. Hardware is well aligned without evidence of fracturing. Noperiprosthetic lucencies are seen. Solid bridging callus formation is noted at the fracture site. No new fractures are seen. The femoral head is well-seated within the acetabulum. Small osteophytes are seen along the distal femur. Knee radiograph: Femoral intramedullary nail and screw are partially visualized. Hardwareis well aligned without evidence of fracturing. No periprosthetic lucencies are seen. There is small osteophyte formation along the lateral distal femur. The knee joint spaces are preserved. No joint effusion is seen. IMPRESSION: Unchanged alignment of the internally fixated healing mid shaft femoral fracture. No new femur fracture identified. Hardware appears intact. No acute fracture or dislocation of the knee. Report dictated by Keeley Mancia MD, (founder ceo & president). I, Gwyn Denton MD have personally reviewed and interpreted this examination/study. > Interpreting Provider: Gwyn Denton MD on 09/02/2024 2:17 PM Panchito Gracia DO DIAGNOSTIC IMAGING O RDERABLES * CT Femur Right W Contrast (09/02/2024 11:53 AM CREDIT ASSOCIATE) Anatomical Region Laterality Modality Lower Extremity Computed Tomogra phy 09/02/2024 12:1 6 PM CREDIT ASSOCIATE Impressions 09/02/2024 12:25 PM CREDIT ASSOCIATE IMPRESSION: A peripherally enhancing fluid collection measuring 5.5 x 1.4 cm at the anterolateral aspect of the proximal to mid thigh compatible with an abscess. > Interpreting Provider: Preet De Guzman MD on 09/02/2024 12:25 PM Narrative 09/02/2024 12:25 PM CREDIT ASSOCIATE PROCEDURE: CT FEMUR RIGHT W CONTRAST DATE/TIME OF EXAM: 09/02/2024 11:54 AM CLINICAL INFORMATION: None relevant/not provided if blank. Indication: L02.419: Leg abscess Additional History: COMPARISON: Right femur x-rays dated 09/25/2023. TECHNIQUE: CT of the [right femur' was performed with intravenous contrast. CT dose reduction technique was used, including Automated Exposure Control. IV CONTRAST: IOPAMIDOL 76 % IV SOLN:100 mL FINDINGS: There is internal fixation of the femur with a retrograde intramedullary nail and screws for a fracture of the midshaft. The hardware is intact and the fracture is healed. There is a peripherally enhancing centrally hypodense collection in the deep subcutaneous tissues at the anterolateral aspect of the proximal to mid thigh measuring 5.5 x 1.4 cm axially (series 4 image 171) and approximately 12 cm craniocaudal. This is compatible with an abscess. There is overlying subcutaneous edema compatible with cellulitis. An intrauterine device is visible. Central hypodensity within the popliteal vein may reflect admixture of contrast (series 4 image 251). Chronic ossific fragments are noted in the anterior aspect of the knee in the region of Hoffa's fat, likely postsurgical. Procedure Note Preet De Guzman MD - 09/02/2024 PROCEDURE: CT FEMUR RIGHT W CONTRAST DATE/TIME OF EXAM: 09/02/2024 11:54 AM CLINICAL INFORMATION: None relevant/not provided if blank. Indication: L02.419: Leg abscess Additional History: COMPARISON: Right femur x-rays dated 09/25/2023. TECHNIQUE: CT of the [right femur' was performed with intravenous contrast. CT dose reduction technique was used, including Automated ExposureControl. IV CONTRAST: IOPAMIDOL 76 % IV SOLN:100 mL FINDINGS: There is internal fixation of the femur with a retrograde intramedullary nail and screws for a fracture of the midshaft. The hardware is intactand the fracture is healed. There is a peripherally enhancing centrally hypodense collection in the deep subcutaneous tissues at the anterolateral aspect of the proximal to mid thigh measuring 5.5 x 1.4 cm axially (series 4 image 171) and approximately 12 cm craniocaudal. This is compatible with an abscess.There is overlying subcutaneous edema compatible with cellulitis. An intrauterine device is visible. Central hypodensity within thepopliteal vein may reflect admixture of contrast (series 4 image 251). Chronic ossific fragments are noted in the anterior aspect of the knee in the region of Hoffa's fat, likely postsurgical. IMPRESSION: A peripherally enhancing fluid collection measuring 5.5 x 1.4 cm at the anterolateral aspect of the proximal to mid thigh compatible with an abscess. > Interpreting Provider: Preet De Guzman MD on 09/02/2024 12:25 PM [address]acia DO CT ORDERABLES * (ABNORMAL) ERYTHROCYTE SEDIMENTATION RATE (09/02/2024 10:27 AM CREDIT ASSOCIATE) Erythrocyte Sedimentation Rate Westergren 46(H) 0 - 30 MM/HR 09/02/2024 11:43 AM CREDIT ASSOCIATE [facility] Blood BLOOD SPECIMEN / Unknown Venipuncture / Unknown 09/02/2024 10:27 AM CREDIT ASSOCIATE 09/02/2024 10:40 AM CREDIT ASSOCIATE Panchito Gracia DO LAB - HEMATOLOGY ORD ERABLES [facility] [address] [place] [address] [phone] * (ABNORMAL) COMPREHENSIVE METABOLIC PANEL (09/02/2024 10:27 AM [facility]) BUN 15 7 - 26 mg/dL 09/02/2024 11:04 AM [facility] Creatinine 0.93 0.56 - 0.96 mg/dL 09/02/2024 11:04 AM [facility] Sodium 137 136 - 145 mmol/L 09/02/2024 11:04 AM [facility] Potassium 4.2 3.5 - 4.5 mmol/L 09/02/2024 11:04 AM [facility] Chloride 106 98 - 107 mmol/L 09/02/2024 11:04 AM [facility] CO2 21(L) 22 - 29 mmol/L 09/02/2024 11:04 AM [facility] Glucose 85 70 - 99 mg/dL 09/02/2024 11:04 AM [facility] Calcium 9.2 8.4 - 10.2 mg/dL 09/02/2024 11:04 AM [facility] Protein Total 7.0 6.0 - 8.3 g/dL 09/02/2024 11:04 AM [facility] Albumin 3.8 3.4 - 5.0 g/dL 09/02/2024 11:04 AM [facility] Bilirubin Total 0.4 0.2 - 1.2 mg/dL 09/02/2024 11:04 AM [facility] Alkaline Phosphatase 49 40 - 150 U/L 09/02/2024 11:04 AM [facility] ALT 16 5 - 55 U/L 09/02/2024 11:04 AM [facility] AST 15 5 - 34 U/L 09/02/2024 11:04 AM [facility] Anion Gap 10 6 - 16 09/02/2024 11:04 AM [facility] BUN/Creatinine Ratio 16 7 - 23 09/02/2024 11:04 AM [facility] Osmolality Calculated 284 275 - 295 mOsm/kg 09/02/2024 11:04 AM [facility] Albumin/Globulin Ratio 1.2 1.1 - 2.3 09/02/2024 11:04 AM [facility] eGFR by CKD-EPI 75(L) >=90 mL/min/1.7 3 m2 09/02/2024 11:04 AM [facility] Blood BLOOD SPECIMEN / Unknown Venipuncture / Unknown 09/02/2024 10:27 AM CREDIT ASSOCIATE 09/02/2024 10:40 AM CREDIT ASSOCIATE Kaylan Su Lindsay NEUROSURGEON-SENIOR ANALYST PROGRAMMER LAB - CELL ATTENDANT HELPER RY ORDERABLES [facility] [address] [place] [address], [facility] [phone] * ETT LINE PERFORMABLE (04/17/2023 8:01 AM CDT) Narrative Abdirizak Hebert DO - 04/17/2023 8:01 AM CDT Abdirizak Hebert DO 04/17/2023 8:06 AM Endotracheal Tube Placement: Patient Location: OR. Intubation Event Date/Time: 04/17/2023 7:42 AM Procedure: intubation (26138). Procedure Section: Sedation: under general anesthesia. Indications for Airway Management: anesthesia Procedure pretreatments used? No Patient Position: supine Mask Ventilation: easy. Blade Type: Moody Blade Size: 3 Laryngoscopy View: grade 2 (partial cords) Intubation Adjuncts: stylet Tube: endotracheal tube Placement: oral Tube type: cuff - inflated Tube Size (MM): 7 Depth of Insertion (CM): 22 Measured From: lips Cuff volume (mL): 8 Cuff Inflated With: air Number of Attempts: 2. Ventilation between attempts: No. Placement Verified By: direct visualization, bilateral breath sounds, chest auscultation and CO2 monitor Tube secured with: adhesive tape. Dentition unchanged? Yes Difficult Airway? No. Procedure Start Time: 04/17/2023 7:42 AM. Staff Section Anesthesia Provider: Abdirizak Hebert DO Provider #1: Madhav Ang MD, Performed the procedure. Additional Comments: Anup attempted first intubation, grade 2 view, tube in esophagus. Ashia with successful endotracheal intubation.. Madhav Ang MD GENERAL ANESTHESIA O RDERABLES * XR FOREARM RIGHT 2VW (11/26/2022 8:48 AM CREDIT ASSOCIATE) Only the most recent of8 resultswithin the time period is included. Anatomical Region Laterality Modality Upper Extremity Radiographic Xiomara ging 11/26/2022 9:33 AM CREDIT ASSOCIATE Impressions 11/26/2022 9:47 AM CREDIT ASSOCIATE IMPRESSION: Grossly unchanged osseous alignment of the healing distal ulnar shaft fracture. Report dictated by Carmencita Collins MD (founder ceo & president). Preet Monroe MD have personally reviewed and interpreted this examination/study. > Interpreting Provider: Preet De Guzman MD on 11/26/2022 9:47 AM Narrative 11/26/2022 9:47 AM CREDIT ASSOCIATE EXAMINATION: XR FOREARM RIGHT 2VW DATE/TIME OF EXAM: 11/26/2022 8:48 AM, LOCATION [facility] HISTORY: S52.691D: Other closed fracture of distal end of right ulna with routine healing, subsequent encounter COMPARISON: Right forearm radiographs dated 08/27/2022 FINDINGS: Redemonstrated are mildly angulated fracture of distal ulna shaft, with grossly unchanged osseous alignment and bridging callus. Mild bowing of the mid radius. No significant soft tissue swelling. Procedure Note Preet De Guzman MD - 11/26/2022 EXAMINATION: XR FOREARM RIGHT 2VW DATE/TIME OF EXAM: 11/26/2022 8:48 AM, LOCATION [facility] HISTORY: S52.691D: Other closed fracture of distal end of right ulnawith routine healing, subsequent encounter COMPARISON: Right forearm radiographs dated 08/27/2022 FINDINGS: Redemonstrated are mildly angulated fracture of distal ulna shaft, with grossly unchanged osseous alignment and bridging callus. Mild bowing ofthe mid radius. No significant soft tissue swelling. IMPRESSION: Grossly unchanged osseous alignment of the healing distal ulnar shaft fracture. Report dictated by Carmencita Collins MD (founder ceo & president). Preet Monroe MD have personally reviewed and interpreted this examination/study. > Interpreting Provider: Preet De Guzman MD on 11/26/2022 9:47 AM Malcom Andrews MD DIAGNOSTIC IMAGING O RDERABLES * LA NASAL ENDOSCOPY,DX (11/24/2022 10:58 AM CREDIT ASSOCIATE) Narrative Fito Craig MD - 11/24/2022 10:58 AM CREDIT ASSOCIATE Fito Craig MD 11/24/2022 11:02 AM Procedure- flexible nasal endoscopy The procedure and alternatives were explained to the patient and verbal consent was obtained. The patient's bilateral nasal cavities were anesthetized with mixture of topical lidocaine and oxymetazoline. A zero degree flexible endoscope was advanced into both nasal cavities for evaluations. The patient tolerated the procedure well and there were no complications. Findings- There are no nasal masses, mucosal lesions, polyps, or purulent drainage. The right nasal cavity is 100% obstructed by her septal deviation, camera cannot be passed. Nasopharynx clear. Fito Craig MD PROCEDURE/MINOR SURG ICAL ORDERABLES * MRI KNEE LEFT WO CONTRAST (10/03/2022 9:49 AM CREDIT ASSOCIATE) Anatomical Region Laterality Modality Lower Extremity Magnetic Resonan ce 10/03/2022 9:57 AM CREDIT ASSOCIATE Addenda Addendum by Preet De Guzman MD on 10/03/2022 11:39 AM CREDIT ASSOCIATE There is a 4 mm loose body in the popliteal cyst (series 3 image 16). > Interpreting Provider: Preet De Guzman MD on 10/03/2022 11:37 AM Impressions 10/03/2022 11:14 AM CREDIT ASSOCIATE IMPRESSION: 1. 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 2. Tear of the medial meniscus posterior horn root attachment and mild extrusion of the body. 3. Small effusion. 4. Moderate sized popliteal cyst. 5. Mild changes of the anterior cruciate ligament compatible with low-grade sprain versus degeneration. > Dictated by Xiang Flower DO (Banquet Line Cook) I, Preet De Guzman MD have personally reviewed and interpreted this examination/study. > Interpreting Provider: Preet De Guzman MD on 10/03/2022 11:14 AM Narrative 10/03/2022 11:14 AM CREDIT ASSOCIATE PROCEDURE: MRI KNEE LEFT WO CONTRAST, DATE/TIME OF EXAM: 10/03/2022 9:49 AM, LOCATION [facility] INDICATION: M25.562: Chronic pain of left knee G89.29: Chronic pain of left knee ADDITIONAL CLINICAL INFORMATION: Ordering Provider Reason For Exam: L knee pain, concern for ligamentous injury COMPARISON: None. TECHNIQUE: MRI of the left knee was performed using multiple pulse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 degree of mild to moderate neural foraminal stenosis at these levels. No soft tissue abnormality is identified. Thoracic spine: Minimal dextrocurvature of the thoracic spine. The alignment is otherwise maintained. Vertebral bodies are normal in height without evidence of acute fracture. The intervertebral discs appear normal. No central canal stenosis is seen. The facets appear normal. No neural foraminal stenosis is seen. No soft tissue abnormality is identified. Lumbar spine: The alignment is normal. Vertebral bodies are normal in height without evidence of acute fracture. The intervertebral discs appear normal. No central canal stenosis is seen. The facets appear normal. No neural foraminal stenosis is seen. No soft tissue abnormality is identified. Procedure Note Madeline Emanuel MD - 04/12/2022 CT HEAD WO CONTRAST, CT LUMBAR SPINE WO CONTRAST, CT THORACIC SPINE WO CONTRAST, CT CERVICAL SPINE WO CONTRAST, CT FACIAL BONES WO CONTRAST DATE: 04/12/2022 4:44 AM EXAMINATION: 1. Computed tomography (CT) of the head without contrast 2. CT of the maxillofacial bones, orbits, and paranasal sinuses without contrast 3. CT of the cervical spine without contrast 4. CT of the thoracic spine without contrast 5. CT of the lumbar spine without contrast HISTORY: Trauma TECHNIQUE: CT of the head, cervical spine, and maxillofacial bones, orbits, and paranasal sinuses was performed without contrast accordingto standard protocol. Reformatted axial, sagittal, and coronal images ofthe thoracic and lumbar spine were obtained by the technologist from a concurrently performed body CT and sent to the workstation for review. COMPARISON: No prior study is available for comparison at the time ofthis dictation. FINDINGS: Head: Suspected trace extra-axial hyperdensity along the surface of the left cerebellar hemisphere, (series 6, image 52), could represent trace subarachnoid hemorrhage. Otherwise, no acute intra- or extra-axial fluid collections are identified. Tiny foci of extra-axial pneumocephalusalong the floor of the left anterior cranial fossa above the left orbitalroof, (series 5, image 56 on the facial bone series). Mild nonspecific prominence of the ventricles. The ventricles are otherwise normal in shape and morphology. The basilar cisterns arepatent. No mass effect or midline shift is seen. The malagon-white matter differentiation is normal. There is vascular calcification of thecarotid siphons. There are nondisplaced fractures of the occipital bones bilaterally, extending to the level of the foramen magnum. Maxillofacial: There are multiple facial bone fractures as follows: *There are mildly displaced or nondisplaced fractures of the left zygomatic. A nondisplaced fracture involves the the anterior tomidportion left zygomatic arch along the suture and a posterior, mildly displaced fracture involving the lateral aspect of the left mandibular fossa.There is mild overlaying soft tissue fat stranding and underlying country printer apprentice space soft tissue emphysema and fat stranding. *There is a mildly displaced fracture of the lateral wall of the left orbit with foci of gas in the left temporal fossa as well as foci of gas and fat stranding in the extraconal space adjacent to the left lateral rectus. No extraocular muscle entrapment. *There is a minimally displaced or nondisplaced fracture of the left superior orbital roof, (series 3, image 204). Trace extra conal fat stranding and tiny foci of intracranial extra-axial pneumocephalus along the floor of the left anterior cranial fossa. Tiny foci of fatextraconal stranding. No extraocular muscle entrapment. *Suspected nondisplaced fracture of the left lamina papyracea. *There is a comminuted fracture of the left inferior orbital wall withthe foci of gas and fat stranding in the extraconal space adjacent to the inferior rectus. No extraocular muscle entrapment. There is involvementof the infraorbital foramen. *There is a nondisplaced fracture of the cruz ana base. *There are comminuted, moderately displaced fractures of the nasalseptum. The nasal septum is deviated to the left. *There are suspected comminuted fractures of the ethmoid sinus zapata. There is diffuse opacification of the ethmoid air cells. *There are comminuted, mildly displaced fractures of the bilateral nasal bones. *There is a comminuted fracture of the proximal nasal process of theleft maxillary bone. *There is a comminuted, mildly displaced fracture of the nasal processof the right maxillary bone. *There is a comminuted, moderately displaced fracture of the posterolateral wall of the left maxillary sinus with the foci of gas and fat stranding in the buccal space and the space posterior to the sinus wall. Foci of gas extend along the left pterygopalatine fossa. *There is a mildly displaced fracture of the anterior wall of the left maxillary sinus. *There are comminuted, mildly displaced fractures of the medial wall of the left maxillary sinus. *There are comminuted, mildly displaced fractures of the right inferior orbital wall with displaced bone fragments and associated extraconal fat stranding and foci of gas. No extraocular muscle entrapment. *There are comminuted, mildly displaced fractures of the lateral wall of the right orbit. There are small foci of gas and fat stranding in theleft temporal fossa and the subjacent extraconal space adjacent to the right lateral rectus. No extraocular muscle entrapment. *There are comminuted, moderately displaced fractures of the medial wall of the right maxillary sinus. *There are comminuted, moderately displaced fractures of the anteriorwall of the right maxillary sinus. *There are comminuted, moderately displaced fractures of the posterolateral wall of the right maxillary sinus. *There is a minimally displaced fracture of the right zygomatic arch. *A more posterior right zygomatic arch fracture involving the lateral aspect of the right mandibular fossa. *There are comminuted, moderately displaced fractures of the medial and lateral right pterygoid plates. *There are comminuted, moderately displaced fractures of the medial and lateral left pterygoid plates. *There is a moderately displaced fracture of the left aspect of the hard palate extending anteriorly across the left maxillary alveolar ridge and the nasal process of the left maxillary bone as mentioned above. The alveolar ridge fracture involves the roots of the central and lateral maxillary incisors. *There is a moderately displaced right parasymphyseal mandibular body fracture with a displaced bone fragment at the fracture of the root ofthe right central and right lateral incisors. Extensive right facial soft tissue swelling and foci of gas in the bilateral buccal space is, the bilateral country printer apprentice spaces andoverlaying the mid face and nasal region. Extensive opacification of the paranasal sinuses likely with blood products. Displaced fracture of the right lateral pterygoid plate likely associated with right pterygoid muscle injuries. There is diffuse fat stranding in the country printer apprentice spaces bilaterally. The eye globes are intact. Minimal opacification in theright mastoid air cells. The mastoid air cells are otherwise grossly clear. Extensive fascial soft tissue tissue swelling is present as outlined above. Cervical spine: There is gentle cervical kyphosis. Small rudimentary cervical ribs atthe C7 vertebral body. Vertebral bodies are normal in height withoutevidence of acute fracture. Other than middle atlantoaxial joint osteoarthritis, the craniocervical junction appears normal. There is mild degenerative disc disease. No central canal stenosis is seen. There are varyingdegrees of mild facet osteoarthritis. There are varying degrees of mild uncovertebral joint osteoarthritis with the same degree of mild to moderate neural foraminal stenosis at these levels. No soft tissue abnormality is identified. Thoracic spine: Minimal dextrocurvature of the thoracic spine. The alignment isotherwise maintained. Vertebral bodies are normal in height without evidence of acute fracture. The intervertebral discs appear normal. No centralcanal stenosis is seen. The facets appear normal. No neural foraminalstenosis is seen. No soft tissue abnormality is identified. Lumbar spine: The alignment is normal. Vertebral bodies are normal in height without evidence of acute fracture. The intervertebral discs appear normal. No central canal stenosis is seen. The facets appear normal. No neural foraminal stenosis is seen. No soft tissue abnormality is identified. IMPRESSION: 1.Suspected trace subarachnoid hemorrhage in the posterior fossa. 2.Bilateral, minimally displaced or nondisplaced occipital bonefractures extending to the foramen magnum. 3.Trace extra-axial pneumocephalus along the floor of the left anterior cranial fossa. Adjacent brain parenchymal contusions are not excluded. 4.Otherwise, no acute intracranial hemorrhage, mass effect, or midline shift. 5.Extensive facial bone fractures including features of bilateral LeFort type III fractures and bilateral ZMC fractures. 6.Nasal bone, nasal septum, hard palate, and mandibular fractures as outlined. 7.Extensive associated facial soft tissue injuries as outlined. 8.No evidence of acute fracture in the cervical, thoracic, or lumbarspine. Dictated by Leonidas Ambriz MD (founder ceo & president). This report was approved by Leonidas Ambriz on 04/12/2022 10:48 AM . I, Dr. MADELINE EMANUEL have personally reviewed and interpreted this examination/study. This report was electronically signed by MADELINE EMANUEL on04/12/2022 11:06 AM . Jonathan Wilkinson MD CT ORDERABLES * CT THORACIC SPINE WO CONTRAST - T/L-spine trauma, spine fracture (04/12/2022 4:41 AM CDT) Anatomical Region Laterality Modality Spine Computed Tomogra phy 04/12/2022 4:42 AM CDT Impressions 04/12/2022 11:06 AM CDT IMPRESSION: 1.Suspected trace subarachnoid hemorrhage in the posterior fossa. 2.Bilateral, minimally displaced or nondisplaced occipital bone fractures extending to the foramen magnum. 3.Trace extra-axial pneumocephalus along the floor of the left anterior cranial fossa. Adjacent brain parenchymal contusions are not excluded. 4.Otherwise, no acute intracranial hemorrhage, mass effect, or midline shift. 5.Extensive facial bone fractures including features of bilateral LeFort type III fractures and bilateral ZMC fractures. 6.Nasal bone, nasal septum, hard palate, and mandibular fractures as outlined. 7.Extensive associated facial soft tissue injuries as outlined. 8.No evidence of acute fracture in the cervical, thoracic, or lumbar spine. Dictated by Leonidas Ambriz MD (founder ceo & president). This report was approved by Leonidas Ambriz on 04/12/2022 10:48 AM . I, Dr. MADELINE EMANUEL have personally reviewed and interpreted this examination/study. This report was electronically signed by MADELINE EMANUEL on 04/12/2022 11:06 AM . Narrative 04/12/2022 11:[address] HEAD WO CONTRAST, CT LUMBAR SPINE WO CONTRAST, CT THORACIC SPINE WO CONTRAST, CT CERVICAL SPINE WO CONTRAST, CT FACIAL BONES WO CONTRAST DATE: 04/12/2022 4:44 AM EXAMINATION: 1. Computed tomography (CT) of the head without contrast 2. CT of the maxillofacial bones, orbits, and paranasal sinuses without contrast 3. CT of the cervical spine without contrast 4. CT of the thoracic spine without contrast 5. CT of the lumbar spine without contrast HISTORY: Trauma TECHNIQUE: CT of the head, cervical spine, and maxillofacial bones, orbits, and paranasal sinuses was performed without contrast according to standard protocol. Reformatted axial, sagittal, and coronal images of the thoracic and lumbar spine were obtained by the technologist from a concurrently performed body CT and sent to the workstation for review. COMPARISON: No prior study is available for comparison at the time of this dictation. FINDINGS: Head: Suspected trace extra-axial hyperdensity along the surface of the left cerebellar hemisphere, (series 6, image 52), could represent trace subarachnoid hemorrhage. Otherwise, no acute intra- or extra-axial fluid collections are identified. Tiny foci of extra-axial pneumocephalus along the floor of the left anterior cranial fossa above the left orbital roof, (series 5, image 56 on the facial bone series). Mild nonspecific prominence of the ventricles. The ventricles are otherwise normal in shape and morphology. The basilar cisterns are patent. No mass effect or midline shift is seen. The malagon-white matter differentiation is normal. There is vascular calcification of the carotid siphons. There are nondisplaced fractures of the occipital bones bilaterally, extending to the level of the foramen magnum. Maxillofacial: There are multiple facial bone fractures as follows: *There are mildly displaced or nondisplaced fractures of the left zygomatic. A nondisplaced fracture involves the the anterior to midportion left zygomatic arch along the suture and a posterior, mildly displaced fracture involving the lateral aspect of the left mandibular fossa. There is mild overlaying soft tissue fat stranding and underlying country printer apprentice space soft tissue emphysema and fat stranding. *There is a mildly displaced fracture of the lateral wall of the left orbit with foci of gas in the left temporal fossa as well as foci of gas and fat stranding in the extraconal space adjacent to the left lateral rectus. No extraocular muscle entrapment. *There is a minimally displaced or nondisplaced fracture of the left superior orbital roof, (series 3, image 204). Trace extra conal fat stranding and tiny foci of intracranial extra-axial pneumocephalus along the floor of the left anterior cranial fossa. Tiny foci of fat extraconal stranding. No extraocular muscle entrapment. *Suspected nondisplaced fracture of the left lamina papyracea. *There is a comminuted fracture of the left inferior orbital wall with the foci of gas and fat stranding in the extraconal space adjacent to the inferior rectus. No extraocular muscle entrapment. There is involvement of the infraorbital foramen. *There is a nondisplaced fracture of the cruz ana base. *There are comminuted, moderately displaced fractures of the nasal septum. The nasal septum is deviated to the left. *There are suspected comminuted fractures of the ethmoid sinus zapata. There is diffuse opacification of the ethmoid air cells. *There are comminuted, mildly displaced fractures of the bilateral nasal bones. *There is a comminuted fracture of the proximal nasal process of the left maxillary bone. *There is a comminuted, mildly displaced fracture of the nasal process of the right maxillary bone. *There is a comminuted, moderately displaced fracture of the posterolateral wall of the left maxillary sinus with the foci of gas and fat stranding in the buccal space and the space posterior to the sinus wall. Foci of gas extend along the left pterygopalatine fossa. *There is a mildly displaced fracture of the anterior wall of the left maxillary sinus. *There are comminuted, mildly displaced fractures of the medial wall of the left maxillary sinus. *There are comminuted, mildly displaced fractures of the right inferior orbital wall with displaced bone fragments and associated extraconal fat stranding and foci of gas. No extraocular muscle entrapment. *There are comminuted, mildly displaced fractures of the lateral wall of the right orbit. There are small foci of gas and fat stranding in the left temporal fossa and the subjacent extraconal space adjacent to the right lateral rectus. No extraocular muscle entrapment. *There are comminuted, moderately displaced fractures of the medial wall of the right maxillary sinus. *There are comminuted, moderately displaced fractures of the anterior wall of the right maxillary sinus. *There are comminuted, moderately displaced fractures of the posterolateral wall of the right maxillary sinus. *There is a minimally displaced fracture of the right zygomatic arch. *A more posterior right zygomatic arch fracture involving the lateral aspect of the right mandibular fossa. *There are comminuted, moderately displaced fractures of the medial and lateral right pterygoid plates. *There are comminuted, moderately displaced fractures of the medial and lateral left pterygoid plates. *There is a moderately displaced fracture of the left aspect of the hard palate extending anteriorly across the left maxillary alveolar ridge and the nasal process of the left maxillary bone as mentioned above. The alveolar ridge fracture involves the roots of the central and lateral maxillary incisors. *There is a moderately displaced right parasymphyseal mandibular body fracture with a displaced bone fragment at the fracture of the root of the right central and right lateral incisors. Extensive right facial soft tissue swelling and foci of gas in the bilateral buccal space is, the bilateral country printer apprentice spaces and overlaying the mid face and nasal region. Extensive opacification of the paranasal sinuses likely with blood products. Displaced fracture of the right lateral pterygoid plate likely associated with right pterygoid muscle injuries. There is diffuse fat stranding in the country printer apprentice spaces bilaterally. The eye globes are intact. Minimal opacification in the right mastoid air cells. The mastoid air cells are otherwise grossly clear. Extensive fascial soft tissue tissue swelling is present as outlined above. Cervical spine: There is gentle cervical kyphosis. Small rudimentary cervical ribs at the C7 vertebral body. Vertebral bodies are normal in height without evidence of acute fracture. Other than middle atlantoaxial joint osteoarthritis, the craniocervical junction appears normal. There is mild degenerative disc disease. No central canal stenosis is seen. There are varying degrees of mild facet osteoarthritis. There are varying degrees of mild uncovertebral joint osteoarthritis with the same degree of mild to moderate neural foraminal stenosis at these levels. No soft tissue abnormality is identified. Thoracic spine: Minimal dextrocurvature of the thoracic spine. The alignment is otherwise maintained. Vertebral bodies are normal in height without evidence of acute fracture. The intervertebral discs appear normal. No central canal stenosis is seen. The facets appear normal. No neural foraminal stenosis is seen. No soft tissue abnormality is identified. Lumbar spine: The alignment is normal. Vertebral bodies are normal in height without evidence of acute fracture. The intervertebral discs appear normal. No central canal stenosis is seen. The facets appear normal. No neural foraminal stenosis is seen. No soft tissue abnormality is identified. Procedure Note Madeline Emanuel MD - 04/12/2022 CT HEAD WO CONTRAST, CT LUMBAR SPINE WO CONTRAST, CT THORACIC SPINE WO CONTRAST, CT CERVICAL SPINE WO CONTRAST, CT FACIAL BONES WO CONTRAST DATE: 04/12/2022 4:44 AM EXAMINATION: 1. Computed tomography (CT) of the head without contrast 2. CT of the maxillofacial bones, orbits, and paranasal sinuses without contrast 3. CT of the cervical spine without contrast 4. CT of the thoracic spine without contrast 5. CT of the lumbar spine without contrast HISTORY: Trauma TECHNIQUE: CT of the head, cervical spine, and maxillofacial bones, orbits, and paranasal sinuses was performed without contrast accordingto standard protocol. Reformatted axial, sagittal, and coronal images ofthe thoracic and lumbar spine were obtained by the technologist from a concurrently performed body CT and sent to the workstation for review. COMPARISON: No prior study is available for comparison at the time ofthis dictation. FINDINGS: Head: Suspected trace extra-axial hyperdensity along the surface of the left cerebellar hemisphere, (series 6, image 52), could represent trace subarachnoid hemorrhage. Otherwise, no acute intra- or extra-axial fluid collections are identified. Tiny foci of extra-axial pneumocephalusalong the floor of the left anterior cranial fossa above the left orbitalroof, (series 5, image 56 on the facial bone series). Mild nonspecific prominence of the ventricles. The ventricles are otherwise normal in shape and morphology. The basilar cisterns arepatent. No mass effect or midline shift is seen. The malagon-white matter differentiation is normal. There is vascular calcification of thecarotid siphons. There are nondisplaced fractures of the occipital bones bilaterally, extending to the level of the foramen magnum. Maxillofacial: There are multiple facial bone fractures as follows: *There are mildly displaced or nondisplaced fractures of the left zygomatic. A nondisplaced fracture involves the the anterior tomidportion left zygomatic arch along the suture and a posterior, mildly displaced fracture involving the lateral aspect of the left mandibular fossa.There is mild overlaying soft tissue fat stranding and underlying country printer apprentice space soft tissue emphysema and fat stranding. *There is a mildly displaced fracture of the lateral wall of the left orbit with foci of gas in the left temporal fossa as well as foci of gas and fat stranding in the extraconal space adjacent to the left lateral rectus. No extraocular muscle entrapment. *There is a minimally displaced or nondisplaced fracture of the left superior orbital roof, (series 3, image 204). Trace extra conal fat stranding and tiny foci of intracranial extra-axial pneumocephalus along the floor of the left anterior cranial fossa. Tiny foci of fatextraconal stranding. No extraocular muscle entrapment. *Suspected nondisplaced fracture of the left lamina papyracea. *There is a comminuted fracture of the left inferior orbital wall withthe foci of gas and fat stranding in the extraconal space adjacent to the inferior rectus. No extraocular muscle entrapment. There is involvementof the infraorbital foramen. *There is a nondisplaced fracture of the cruz ana base. *There are comminuted, moderately displaced fractures of the nasalseptum. The nasal septum is deviated to the left. *There are suspected comminuted fractures of the ethmoid sinus zapata. There is diffuse opacification of the ethmoid air cells. *There are comminuted, mildly displaced fractures of the bilateral nasal bones. *There is a comminuted fracture of the proximal nasal process of theleft maxillary bone. *There is a comminuted, mildly displaced fracture of the nasal processof the right maxillary bone. *There is a comminuted, moderately displaced fracture of the posterolateral wall of the left maxillary sinus with the foci of gas and fat stranding in the buccal space and the space posterior to the sinus wall. Foci of gas extend along the left pterygopalatine fossa. *There is a mildly displaced fracture of the anterior wall of the left maxillary sinus. *There are comminuted, mildly displaced fractures of the medial wall of the left maxillary sinus. *There are comminuted, mildly displaced fractures of the right inferior orbital wall with displaced bone fragments and associated extraconal fat stranding and foci of gas. No extraocular muscle entrapment. *There are comminuted, mildly displaced fractures of the lateral wall of the right orbit. There are small foci of gas and fat stranding in theleft temporal fossa and the subjacent extraconal space adjacent to the right lateral rectus. No extraocular muscle entrapment. *There are comminuted, moderately displaced fractures of the medial wall of the right maxillary sinus. *There are comminuted, moderately displaced fractures of the anteriorwall of the right maxillary sinus. *There are comminuted, moderately displaced fractures of the posterolateral wall of the right maxillary sinus. *There is a minimally displaced fracture of the right zygomatic arch. *A more posterior right zygomatic arch fracture involving the lateral aspect of the right mandibular fossa. *There are comminuted, moderately displaced fractures of the medial and lateral right pterygoid plates. *There are comminuted, moderately displaced fractures of the medial and lateral left pterygoid plates. *There is a moderately displaced fracture of the left aspect of the hard palate extending anteriorly across the left maxillary alveolar ridge and the nasal process of the left maxillary bone as mentioned above. The alveolar ridge fracture involves the roots of the central and lateral maxillary incisors. *There is a moderately displaced right parasymphyseal mandibular body fracture with a displaced bone fragment at the fracture of the root ofthe right central and right lateral incisors. Extensive right facial soft tissue swelling and foci of gas in the bilateral buccal space is, the bilateral country printer apprentice spaces andoverlaying the mid face and nasal region. Extensive opacification of the paranasal sinuses likely with blood products. Displaced fracture of the right lateral pterygoid plate likely associated with right pterygoid muscle injuries. There is diffuse fat stranding in the country printer apprentice spaces bilaterally. The eye globes are intact. Minimal opacification in theright mastoid air cells. The mastoid air cells are otherwise grossly clear. Extensive fascial soft tissue tissue swelling is present as outlined above. Cervical spine: There is gentle cervical kyphosis. Small rudimentary cervical ribs atthe C7 vertebral body. Vertebral bodies are normal in height withoutevidence of acute fracture. Other than middle atlantoaxial joint osteoarthritis, the craniocervical junction appears normal. There is mild degenerative disc disease. No central canal stenosis is seen. There are varyingdegrees of mild facet osteoarthritis. There are varying degrees of mild uncovertebral joint osteoarthritis with the same degree of mild to moderate neural foraminal stenosis at these levels. No soft tissue abnormality is identified. Thoracic spine: Minimal dextrocurvature of the thoracic spine. The alignment isotherwise maintained. Vertebral bodies are normal in height without evidence of acute fracture. The intervertebral discs appear normal. No centralcanal stenosis is seen. The facets appear normal. No neural foraminalstenosis is seen. No soft tissue abnormality is identified. Lumbar spine: The alignment is normal. Vertebral bodies are normal in height without evidence of acute fracture. The intervertebral discs appear normal. No central canal stenosis is seen. The facets appear normal. No neural foraminal stenosis is seen. No soft tissue abnormality is identified. IMPRESSION: 1.Suspected trace subarachnoid hemorrhage in the posterior fossa. 2.Bilateral, minimally displaced or nondisplaced occipital bonefractures extending to the foramen magnum. 3.Trace extra-axial pneumocephalus along the floor of the left anterior cranial fossa. Adjacent brain parenchymal contusions are not excluded. 4.Otherwise, no acute intracranial hemorrhage, mass effect, or midline shift. 5.Extensive facial bone fractures including features of bilateral LeFort type III fractures and bilateral ZMC fractures. 6.Nasal bone, nasal septum, hard palate, and mandibular fractures as outlined. 7.Extensive associated facial soft tissue injuries as outlined. 8.No evidence of acute fracture in the cervical, thoracic, or lumbarspine. Dictated by Leonidas Ambriz MD (founder ceo & president). This report was approved by Leonidas Ambriz on 04/12/2022 10:48 AM . I, Dr. MADELINE EMANUEL have personally reviewed and interpreted this examination/study. This report was electronically signed by MADELINE EMANUEL on04/12/2022 11:06 AM . Jonathan Wilkinson MD CT ORDERABLES * CT CERVICAL SPINE WO CONTRAST - C-Spine Trauma, Spine fracture (04/12/2022 4:41 AM CDT) Anatomical Region Laterality Modality Spine Computed Tomogra phy 04/12/2022 4:42 AM CDT Impressions 04/12/2022 11:06 AM CDT IMPRESSION: 1.Suspected trace subarachnoid hemorrhage in the posterior fossa. 2.Bilateral, minimally displaced or nondisplaced occipital bone fractures extending to the foramen magnum. 3.Trace extra-axial pneumocephalus along the floor of the left anterior cranial fossa. Adjacent brain parenchymal contusions are not excluded. 4.Otherwise, no acute intracranial hemorrhage, mass effect, or midline shift. 5.Extensive facial bone fractures including features of bilateral LeFort type III fractures and bilateral ZMC fractures. 6.Nasal bone, nasal septum, hard palate, and mandibular fractures as outlined. 7.Extensive associated facial soft tissue injuries as outlined. 8.No evidence of acute fracture in the cervical, thoracic, or lumbar spine. Dictated by Leonidas Ambriz MD (founder ceo & president). This report was approved by Leonidas Ambriz on 04/12/2022 10:48 AM . I, Dr. MADELINE EMANUEL have personally reviewed and interpreted this examination/study. This report was electronically signed by MADELINE EMANUEL on 04/12/2022 11:06 AM . Narrative 04/12/2022 11:[address] HEAD WO CONTRAST, CT LUMBAR SPINE WO CONTRAST, CT THORACIC SPINE WO CONTRAST, CT CERVICAL SPINE WO CONTRAST, CT FACIAL BONES WO CONTRAST DATE: 04/12/2022 4:44 AM EXAMINATION: 1. Computed tomography (CT) of the head without contrast 2. CT of the maxillofacial bones, orbits, and paranasal sinuses without contrast 3. CT of the cervical spine without contrast 4. CT of the thoracic spine without contrast 5. CT of the lumbar spine without contrast HISTORY: Trauma TECHNIQUE: CT of the head, cervical spine, and maxillofacial bones, orbits, and paranasal sinuses was performed without contrast according to standard protocol. Reformatted axial, sagittal, and coronal images of the thoracic and lumbar spine were obtained by the technologist from a concurrently performed body CT and sent to the workstation for review. COMPARISON: No prior study is available for comparison at the time of this dictation. FINDINGS: Head: Suspected trace extra-axial hyperdensity along the surface of the left cerebellar hemisphere, (series 6, image 52), could represent trace subarachnoid hemorrhage. Otherwise, no acute intra- or extra-axial fluid collections are identified. Tiny foci of extra-axial pneumocephalus along the floor of the left anterior cranial fossa above the left orbital roof, (series 5, image 56 on the facial bone series). Mild nonspecific prominence of the ventricles. The ventricles are otherwise normal in shape and morphology. The basilar cisterns are patent. No mass effect or midline shift is seen. The malagon-white matter differentiation is normal. There is vascular calcification of the carotid siphons. There are nondisplaced fractures of the occipital bones bilaterally, extending to the level of the foramen magnum. Maxillofacial: There are multiple facial bone fractures as follows: *There are mildly displaced or nondisplaced fractures of the left zygomatic. A nondisplaced fracture involves the the anterior to midportion left zygomatic arch along the suture and a posterior, mildly displaced fracture involving the lateral aspect of the left mandibular fossa. There is mild overlaying soft tissue fat stranding and underlying country printer apprentice space soft tissue emphysema and fat stranding. *There is a mildly displaced fracture of the lateral wall of the left orbit with foci of gas in the left temporal fossa as well as foci of gas and fat stranding in the extraconal space adjacent to the left lateral rectus. No extraocular muscle entrapment. *There is a minimally displaced or nondisplaced fracture of the left superior orbital roof, (series 3, image 204). Trace extra conal fat stranding and tiny foci of intracranial extra-axial pneumocephalus along the floor of the left anterior cranial fossa. Tiny foci of fat extraconal stranding. No extraocular muscle entrapment. *Suspected nondisplaced fracture of the left lamina papyracea. *There is a comminuted fracture of the left inferior orbital wall with the foci of gas and fat stranding in the extraconal space adjacent to the inferior rectus. No extraocular muscle entrapment. There is involvement of the infraorbital foramen. *There is a nondisplaced fracture of the cruz ana base. *There are comminuted, moderately displaced fractures of the nasal septum. The nasal septum is deviated to the left. *There are suspected comminuted fractures of the ethmoid sinus zapata. There is diffuse opacification of the ethmoid air cells. *There are comminuted, mildly displaced fractures of the bilateral nasal bones. *There is a comminuted fracture of the proximal nasal process of the left maxillary bone. *There is a comminuted, mildly displaced fracture of the nasal process of the right maxillary bone. *There is a comminuted, moderately displaced fracture of the posterolateral wall of the left maxillary sinus with the foci of gas and fat stranding in the buccal space and the space posterior to the sinus wall. Foci of gas extend along the left pterygopalatine fossa. *There is a mildly displaced fracture of the anterior wall of the left maxillary sinus. *There are comminuted, mildly displaced fractures of the medial wall of the left maxillary sinus. *There are comminuted, mildly displaced fractures of the right inferior orbital wall with displaced bone fragments and associated extraconal fat stranding and foci of gas. No extraocular muscle entrapment. *There are comminuted, mildly displaced fractures of the lateral wall of the right orbit. There are small foci of gas and fat stranding in the left temporal fossa and the subjacent extraconal space adjacent to the right lateral rectus. No extraocular muscle entrapment. *There are comminuted, moderately displaced fractures of the medial wall of the right maxillary sinus. *There are comminuted, moderately displaced fractures of the anterior wall of the right maxillary sinus. *There are comminuted, moderately displaced fractures of the posterolateral wall of the right maxillary sinus. *There is a minimally displaced fracture of the right zygomatic arch. *A more posterior right zygomatic arch fracture involving the lateral aspect of the right mandibular fossa. *There are comminuted, moderately displaced fractures of the medial and lateral right pterygoid plates. *There are comminuted, moderately displaced fractures of the medial and lateral left pterygoid plates. *There is a moderately displaced fracture of the left aspect of the hard palate extending anteriorly across the left maxillary alveolar ridge and the nasal process of the left maxillary bone as mentioned above. The alveolar ridge fracture involves the roots of the central and lateral maxillary incisors. *There is a moderately displaced right parasymphyseal mandibular body fracture with a displaced bone fragment at the fracture of the root of the right central and right lateral incisors. Extensive right facial soft tissue swelling and foci of gas in the bilateral buccal space is, the bilateral country printer apprentice spaces and overlaying the mid face and nasal region. Extensive opacification of the paranasal sinuses likely with blood products. Displaced fracture of the right lateral pterygoid plate likely associated with right pterygoid muscle injuries. There is diffuse fat stranding in the country printer apprentice spaces bilaterally. The eye globes are intact. Minimal opacification in the right mastoid air cells. The mastoid air cells are otherwise grossly clear. Extensive fascial soft tissue tissue swelling is present as outlined above. Cervical spine: There is gentle cervical kyphosis. Small rudimentary cervical ribs at the C7 vertebral body. Vertebral bodies are normal in height without evidence of acute fracture. Other than middle atlantoaxial joint osteoarthritis, the craniocervical junction appears normal. There is mild degenerative disc disease. No central canal stenosis is seen. There are varying degrees of mild facet osteoarthritis. There are varying degrees of mild uncovertebral joint osteoarthritis with the same degree of mild to moderate neural foraminal stenosis at these levels. No soft tissue abnormality is identified. Thoracic spine: Minimal dextrocurvature of the thoracic spine. The alignment is otherwise maintained. Vertebral bodies are normal in height without evidence of acute fracture. The intervertebral discs appear normal. No central canal stenosis is seen. The facets appear normal. No neural foraminal stenosis is seen. No soft tissue abnormality is identified. Lumbar spine: The alignment is normal. Vertebral bodies are normal in height without evidence of acute fracture. The intervertebral discs appear normal. No central canal stenosis is seen. The facets appear normal. No neural foraminal stenosis is seen. No soft tissue abnormality is identified. Procedure Note Madeline Emanuel MD - 04/12/2022 CT HEAD WO CONTRAST, CT LUMBAR SPINE WO CONTRAST, CT THORACIC SPINE WO CONTRAST, CT CERVICAL SPINE WO CONTRAST, CT FACIAL BONES WO CONTRAST DATE: 04/12/2022 4:44 AM EXAMINATION: 1. Computed tomography (CT) of the head without contrast 2. CT of the maxillofacial bones, orbits, and paranasal sinuses without contrast 3. CT of the cervical spine without contrast 4. CT of the thoracic spine without contrast 5. CT of the lumbar spine without contrast HISTORY: Trauma TECHNIQUE: CT of the head, cervical spine, and maxillofacial bones, orbits, and paranasal sinuses was performed without contrast accordingto standard protocol. Reformatted axial, sagittal, and coronal images ofthe thoracic and lumbar spine were obtained by the technologist from a concurrently performed body CT and sent to the workstation for review. COMPARISON: No prior study is available for comparison at the time ofthis dictation. FINDINGS: Head: Suspected trace extra-axial hyperdensity along the surface of the left cerebellar hemisphere, (series 6, image 52), could represent trace subarachnoid hemorrhage. Otherwise, no acute intra- or extra-axial fluid collections are identified. Tiny foci of extra-axial pneumocephalusalong the floor of the left anterior cranial fossa above the left orbitalroof, (series 5, image 56 on the facial bone series). Mild nonspecific prominence of the ventricles. The ventricles are otherwise normal in shape and morphology. The basilar cisterns arepatent. No mass effect or midline shift is seen. The malagon-white matter differentiation is normal. There is vascular calcification of thecarotid siphons. There are nondisplaced fractures of the occipital bones bilaterally, extending to the level of the foramen magnum. Maxillofacial: There are multiple facial bone fractures as follows: *There are mildly displaced or nondisplaced fractures of the left zygomatic. A nondisplaced fracture involves the the anterior tomidportion left zygomatic arch along the suture and a posterior, mildly displaced fracture involving the lateral aspect of the left mandibular fossa.There is mild overlaying soft tissue fat stranding and underlying country printer apprentice space soft tissue emphysema and fat stranding. *There is a mildly displaced fracture of the lateral wall of the left orbit with foci of gas in the left temporal fossa as well as foci of gas and fat stranding in the extraconal space adjacent to the left lateral rectus. No extraocular muscle entrapment. *There is a minimally displaced or nondisplaced fracture of the left superior orbital roof, (series 3, image 204). Trace extra conal fat stranding and tiny foci of intracranial extra-axial pneumocephalus along the floor of the left anterior cranial fossa. Tiny foci of fatextraconal stranding. No extraocular muscle entrapment. *Suspected nondisplaced fracture of the left lamina papyracea. *There is a comminuted fracture of the left inferior orbital wall withthe foci of gas and fat stranding in the extraconal space adjacent to the inferior rectus. No extraocular muscle entrapment. There is involvementof the infraorbital foramen. *There is a nondisplaced fracture of the cruz ana base. *There are comminuted, moderately displaced fractures of the nasalseptum. The nasal septum is deviated to the left. *There are suspected comminuted fractures of the ethmoid sinus zapata. There is diffuse opacification of the ethmoid air cells. *There are comminuted, mildly displaced fractures of the bilateral nasal bones. *There is a comminuted fracture of the proximal nasal process of theleft maxillary bone. *There is a comminuted, mildly displaced fracture of the nasal processof the right maxillary bone. *There is a comminuted, moderately displaced fracture of the posterolateral wall of the left maxillary sinus with the foci of gas and fat stranding in the buccal space and the space posterior to the sinus wall. Foci of gas extend along the left pterygopalatine fossa. *There is a mildly displaced fracture of the anterior wall of the left maxillary sinus. *There are comminuted, mildly displaced fractures of the medial wall of the left maxillary sinus. *There are comminuted, mildly displaced fractures of the right inferior orbital wall with displaced bone fragments and associated extraconal fat stranding and foci of gas. No extraocular muscle entrapment. *There are comminuted, mildly displaced fractures of the lateral wall of the right orbit. There are small foci of gas and fat stranding in theleft temporal fossa and the subjacent extraconal space adjacent to the right lateral rectus. No extraocular muscle entrapment. *There are comminuted, moderately displaced fractures of the medial wall of the right maxillary sinus. *There are comminuted, moderately displaced fractures of the anteriorwall of the right maxillary sinus. *There are comminuted, moderately displaced fractures of the posterolateral wall of the right maxillary sinus. *There is a minimally displaced fracture of the right zygomatic arch. *A more posterior right zygomatic arch fracture involving the lateral aspect of the right mandibular fossa. *There are comminuted, moderately displaced fractures of the medial and lateral right pterygoid plates. *There are comminuted, moderately displaced fractures of the medial and lateral left pterygoid plates. *There is a moderately displaced fracture of the left aspect of the hard palate extending anteriorly across the left maxillary alveolar ridge and the nasal process of the left maxillary bone as mentioned above. The alveolar ridge fracture involves the roots of the central and lateral maxillary incisors. *There is a moderately displaced right parasymphyseal mandibular body fracture with a displaced bone fragment at the fracture of the root ofthe right central and right lateral incisors. Extensive right facial soft tissue swelling and foci of gas in the bilateral buccal space is, the bilateral country printer apprentice spaces andoverlaying the mid face and nasal region. Extensive opacification of the paranasal sinuses likely with blood products. Displaced fracture of the right lateral pterygoid plate likely associated with right pterygoid muscle injuries. There is diffuse fat stranding in the country printer apprentice spaces bilaterally. The eye globes are intact. Minimal opacification in theright mastoid air cells. The mastoid air cells are otherwise grossly clear. Extensive fascial soft tissue tissue swelling is present as outlined above. Cervical spine: There is gentle cervical kyphosis. Small rudimentary cervical ribs atthe C7 vertebral body. Vertebral bodies are normal in height withoutevidence of acute fracture. Other than middle atlantoaxial joint osteoarthritis, the craniocervical junction appears normal. There is mild degenerative disc disease. No central canal stenosis is seen. There are varyingdegrees of mild facet osteoarthritis. There are varying degrees of mild uncovertebral joint osteoarthritis with the same degree of mild to moderate neural foraminal stenosis at these levels. No soft tissue abnormality is identified. Thoracic spine: Minimal dextrocurvature of the thoracic spine. The alignment isotherwise maintained. Vertebral bodies are normal in height without evidence of acute fracture. The intervertebral discs appear normal. No centralcanal stenosis is seen. The facets appear normal. No neural foraminalstenosis is seen. No soft tissue abnormality is identified. Lumbar spine: The alignment is normal. Vertebral bodies are normal in height without evidence of acute fracture. The intervertebral discs appear normal. No central canal stenosis is seen. The facets appear normal. No neural foraminal stenosis is seen. No soft tissue abnormality is identified. IMPRESSION: 1.Suspected trace subarachnoid hemorrhage in the posterior fossa. 2.Bilateral, minimally displaced or nondisplaced occipital bonefractures extending to the foramen magnum. 3.Trace extra-axial pneumocephalus along the floor of the left anterior cranial fossa. Adjacent brain parenchymal contusions are not excluded. 4.Otherwise, no acute intracranial hemorrhage, mass effect, or midline shift. 5.Extensive facial bone fractures including features of bilateral LeFort type III fractures and bilateral ZMC fractures. 6.Nasal bone, nasal septum, hard palate, and mandibular fractures as outlined. 7.Extensive associated facial soft tissue injuries as outlined. 8.No evidence of acute fracture in the cervical, thoracic, or lumbarspine. Dictated by Leonidas Ambriz MD (founder ceo & president). This report was approved by Leonidas Ambriz on 04/12/2022 10:48 AM . I, Dr. MADELINE EMANUEL have personally reviewed and interpreted this examination/study. This report was electronically signed by MADELINE EMANUEL on04/12/2022 11:06 AM . Jonathan Wilkinson MD CT ORDERABLES * CT FACIAL BONES WO CONTRAST - Facial trauma, fx suspected, blunt (04/12/2022 4:41 AM CDT) Anatomical Region Laterality Modality Head Computed Tomogra phy 04/12/2022 4:42 AM CDT Impressions 04/12/2022 11:06 AM CDT IMPRESSION: 1.Suspected trace subarachnoid hemorrhage in the posterior fossa. 2.Bilateral, minimally displaced or nondisplaced occipital bone fractures extending to the foramen magnum. 3.Trace extra-axial pneumocephalus along the floor of the left anterior cranial fossa. Adjacent brain parenchymal contusions are not excluded. 4.Otherwise, no acute intracranial hemorrhage, mass effect, or midline shift. 5.Extensive facial bone fractures including features of bilateral LeFort type III fractures and bilateral ZMC fractures. 6.Nasal bone, nasal septum, hard palate, and mandibular fractures as outlined. 7.Extensive associated facial soft tissue injuries as outlined. 8.No evidence of acute fracture in the cervical, thoracic, or lumbar spine. Dictated by Leonidas Ambriz MD (founder ceo & president). This report was approved by Leonidas Ambriz on 04/12/2022 10:48 AM . I, Dr. MADELINE EMANUEL have personally reviewed and interpreted this examination/study. This report was electronically signed by MADELINE EMANUEL on 04/12/2022 11:06 AM . Narrative 04/12/2022 11:[address] HEAD WO CONTRAST, CT LUMBAR SPINE WO CONTRAST, CT THORACIC SPINE WO CONTRAST, CT CERVICAL SPINE WO CONTRAST, CT FACIAL BONES WO CONTRAST DATE: 04/12/2022 4:44 AM EXAMINATION: 1. Computed tomography (CT) of the head without contrast 2. CT of the maxillofacial bones, orbits, and paranasal sinuses without contrast 3. CT of the cervical spine without contrast 4. CT of the thoracic spine without contrast 5. CT of the lumbar spine without contrast HISTORY: Trauma TECHNIQUE: CT of the head, cervical spine, and maxillofacial bones, orbits, and paranasal sinuses was performed without contrast according to standard protocol. Reformatted axial, sagittal, and coronal images of the thoracic and lumbar spine were obtained by the technologist from a concurrently performed body CT and sent to the workstation for review. COMPARISON: No prior study is available for comparison at the time of this dictation. FINDINGS: Head: Suspected trace extra-axial hyperdensity along the surface of the left cerebellar hemisphere, (series 6, image 52), could represent trace subarachnoid hemorrhage. Otherwise, no acute intra- or extra-axial fluid collections are identified. Tiny foci of extra-axial pneumocephalus along the floor of the left anterior cranial fossa above the left orbital roof, (series 5, image 56 on the facial bone series). Mild nonspecific prominence of the ventricles. The ventricles are otherwise normal in shape and morphology. The basilar cisterns are patent. No mass effect or midline shift is seen. The malagon-white matter differentiation is normal. There is vascular calcification of the carotid siphons. There are nondisplaced fractures of the occipital bones bilaterally, extending to the level of the foramen magnum. Maxillofacial: There are multiple facial bone fractures as follows: *There are mildly displaced or nondisplaced fractures of the left zygomatic. A nondisplaced fracture involves the the anterior to midportion left zygomatic arch along the suture and a posterior, mildly displaced fracture involving the lateral aspect of the left mandibular fossa. There is mild overlaying soft tissue fat stranding and underlying country printer apprentice space soft tissue emphysema and fat stranding. *There is a mildly displaced fracture of the lateral wall of the left orbit with foci of gas in the left temporal fossa as well as foci of gas and fat stranding in the extraconal space adjacent to the left lateral rectus. No extraocular muscle entrapment. *There is a minimally displaced or nondisplaced fracture of the left superior orbital roof, (series 3, image 204). Trace extra conal fat stranding and tiny foci of intracranial extra-axial pneumocephalus along the floor of the left anterior cranial fossa. Tiny foci of fat extraconal stranding. No extraocular muscle entrapment. *Suspected nondisplaced fracture of the left lamina papyracea. *There is a comminuted fracture of the left inferior orbital wall with the foci of gas and fat stranding in the extraconal space adjacent to the inferior rectus. No extraocular muscle entrapment. There is involvement of the infraorbital foramen. *There is a nondisplaced fracture of the cruz ana base. *There are comminuted, moderately displaced fractures of the nasal septum. The nasal septum is deviated to the left. *There are suspected comminuted fractures of the ethmoid sinus zapata. There is diffuse opacification of the ethmoid air cells. *There are comminuted, mildly displaced fractures of the bilateral nasal bones. *There is a comminuted fracture of the proximal nasal process of the left maxillary bone. *There is a comminuted, mildly displaced fracture of the nasal process of the right maxillary bone. *There is a comminuted, moderately displaced fracture of the posterolateral wall of the left maxillary sinus with the foci of gas and fat stranding in the buccal space and the space posterior to the sinus wall. Foci of gas extend along the left pterygopalatine fossa. *There is a mildly displaced fracture of the anterior wall of the left maxillary sinus. *There are comminuted, mildly displaced fractures of the medial wall of the left maxillary sinus. *There are comminuted, mildly displaced fractures of the right inferior orbital wall with displaced bone fragments and associated extraconal fat stranding and foci of gas. No extraocular muscle entrapment. *There are comminuted, mildly displaced fractures of the lateral wall of the right orbit. There are small foci of gas and fat stranding in the left temporal fossa and the subjacent extraconal space adjacent to the right lateral rectus. No extraocular muscle entrapment. *There are comminuted, moderately displaced fractures of the medial wall of the right maxillary sinus. *There are comminuted, moderately displaced fractures of the anterior wall of the right maxillary sinus. *There are comminuted, moderately displaced fractures of the posterolateral wall of the right maxillary sinus. *There is a minimally displaced fracture of the right zygomatic arch. *A more posterior right zygomatic arch fracture involving the lateral aspect of the right mandibular fossa. *There are comminuted, moderately displaced fractures of the medial and lateral right pterygoid plates. *There are comminuted, moderately displaced fractures of the medial and lateral left pterygoid plates. *There is a moderately displaced fracture of the left aspect of the hard palate extending anteriorly across the left maxillary alveolar ridge and the nasal process of the left maxillary bone as mentioned above. The alveolar ridge fracture involves the roots of the central and lateral maxillary incisors. *There is a moderately displaced right parasymphyseal mandibular body fracture with a displaced bone fragment at the fracture of the root of the right central and right lateral incisors. Extensive right facial soft tissue swelling and foci of gas in the bilateral buccal space is, the bilateral country printer apprentice spaces and overlaying the mid face and nasal region. Extensive opacification of the paranasal sinuses likely with blood products. Displaced fracture of the right lateral pterygoid plate likely associated with right pterygoid muscle injuries. There is diffuse fat stranding in the country printer apprentice spaces bilaterally. The eye globes are intact. Minimal opacification in the right mastoid air cells. The mastoid air cells are otherwise grossly clear. Extensive fascial soft tissue tissue swelling is present as outlined above. Cervical spine: There is gentle cervical kyphosis. Small rudimentary cervical ribs at the C7 vertebral body. Vertebral bodies are normal in height without evidence of acute fracture. Other than middle atlantoaxial joint osteoarthritis, the craniocervical junction appears normal. There is mild degenerative disc disease. No central canal stenosis is seen. There are varying degrees of mild facet osteoarthritis. There are varying degrees of mild uncovertebral joint osteoarthritis with the same degree of mild to moderate neural foraminal stenosis at these levels. No soft tissue abnormality is identified. Thoracic spine: Minimal dextrocurvature of the thoracic spine. The alignment is otherwise maintained. Vertebral bodies are normal in height without evidence of acute fracture. The intervertebral discs appear normal. No central canal stenosis is seen. The facets appear normal. No neural foraminal stenosis is seen. No soft tissue abnormality is identified. Lumbar spine: The alignment is normal. Vertebral bodies are normal in height without evidence of acute fracture. The intervertebral discs appear normal. No central canal stenosis is seen. The facets appear normal. No neural foraminal stenosis is seen. No soft tissue abnormality is identified. Procedure Note Madeline Emanuel MD - 04/12/2022 CT HEAD WO CONTRAST, CT LUMBAR SPINE WO CONTRAST, CT THORACIC SPINE WO CONTRAST, CT CERVICAL SPINE WO CONTRAST, CT FACIAL BONES WO CONTRAST DATE: 04/12/2022 4:44 AM EXAMINATION: 1. Computed tomography (CT) of the head without contrast 2. CT of the maxillofacial bones, orbits, and paranasal sinuses without contrast 3. CT of the cervical spine without contrast 4. CT of the thoracic spine without contrast 5. CT of the lumbar spine without contrast HISTORY: Trauma TECHNIQUE: CT of the head, cervical spine, and maxillofacial bones, orbits, and paranasal sinuses was performed without contrast accordingto standard protocol. Reformatted axial, sagittal, and coronal images ofthe thoracic and lumbar spine were obtained by the technologist from a concurrently performed body CT and sent to the workstation for review. COMPARISON: No prior study is available for comparison at the time ofthis dictation. FINDINGS: Head: Suspected trace extra-axial hyperdensity along the surface of the left cerebellar hemisphere, (series 6, image 52), could represent trace subarachnoid hemorrhage. Otherwise, no acute intra- or extra-axial fluid collections are identified. Tiny foci of extra-axial pneumocephalusalong the floor of the left anterior cranial fossa above the left orbitalroof, (series 5, image 56 on the facial bone series). Mild nonspecific prominence of the ventricles. The ventricles are otherwise normal in shape and morphology. The basilar cisterns arepatent. No mass effect or midline shift is seen. The malagon-white matter differentiation is normal. There is vascular calcification of thecarotid siphons. There are nondisplaced fractures of the occipital bones bilaterally, extending to the level of the foramen magnum. Maxillofacial: There are multiple facial bone fractures as follows: *There are mildly displaced or nondisplaced fractures of the left zygomatic. A nondisplaced fracture involves the the anterior tomidportion left zygomatic arch along the suture and a posterior, mildly displaced fracture involving the lateral aspect of the left mandibular fossa.There is mild overlaying soft tissue fat stranding and underlying country printer apprentice space soft tissue emphysema and fat stranding. *There is a mildly displaced fracture of the lateral wall of the left orbit with foci of gas in the left temporal fossa as well as foci of gas and fat stranding in the extraconal space adjacent to the left lateral rectus. No extraocular muscle entrapment. *There is a minimally displaced or nondisplaced fracture of the left superior orbital roof, (series 3, image 204). Trace extra conal fat stranding and tiny foci of intracranial extra-axial pneumocephalus along the floor of the left anterior cranial fossa. Tiny foci of fatextraconal stranding. No extraocular muscle entrapment. *Suspected nondisplaced fracture of the left lamina papyracea. *There is a comminuted fracture of the left inferior orbital wall withthe foci of gas and fat stranding in the extraconal space adjacent to the inferior rectus. No extraocular muscle entrapment. There is involvementof the infraorbital foramen. *There is a nondisplaced fracture of the cruz ana base. *There are comminuted, moderately displaced fractures of the nasalseptum. The nasal septum is deviated to the left. *There are suspected comminuted fractures of the ethmoid sinus zapata. There is diffuse opacification of the ethmoid air cells. *There are comminuted, mildly displaced fractures of the bilateral nasal bones. *There is a comminuted fracture of the proximal nasal process of theleft maxillary bone. *There is a comminuted, mildly displaced fracture of the nasal processof the right maxillary bone. *There is a comminuted, moderately displaced fracture of the posterolateral wall of the left maxillary sinus with the foci of gas and fat stranding in the buccal space and the space posterior to the sinus wall. Foci of gas extend along the left pterygopalatine fossa. *There is a mildly displaced fracture of the anterior wall of the left maxillary sinus. *There are comminuted, mildly displaced fractures of the medial wall of the left maxillary sinus. *There are comminuted, mildly displaced fractures of the right inferior orbital wall with displaced bone fragments and associated extraconal fat stranding and foci of gas. No extraocular muscle entrapment. *There are comminuted, mildly displaced fractures of the lateral wall of the right orbit. There are small foci of gas and fat stranding in theleft temporal fossa and the subjacent extraconal space adjacent to the right lateral rectus. No extraocular muscle entrapment. *There are comminuted, moderately displaced fractures of the medial wall of the right maxillary sinus. *There are comminuted, moderately displaced fractures of the anteriorwall of the right maxillary sinus. *There are comminuted, moderately displaced fractures of the posterolateral wall of the right maxillary sinus. *There is a minimally displaced fracture of the right zygomatic arch. *A more posterior right zygomatic arch fracture involving the lateral aspect of the right mandibular fossa. *There are comminuted, moderately displaced fractures of the medial and lateral right pterygoid plates. *There are comminuted, moderately displaced fractures of the medial and lateral left pterygoid plates. *There is a moderately displaced fracture of the left aspect of the hard palate extending anteriorly across the left maxillary alveolar ridge and the nasal process of the left maxillary bone as mentioned above. The alveolar ridge fracture involves the roots of the central and lateral maxillary incisors. *There is a moderately displaced right parasymphyseal mandibular body fracture with a displaced bone fragment at the fracture of the root ofthe right central and right lateral incisors. Extensive right facial soft tissue swelling and foci of gas in the bilateral buccal space is, the bilateral country printer apprentice spaces andoverlaying the mid face and nasal region. Extensive opacification of the paranasal sinuses likely with blood products. Displaced fracture of the right lateral pterygoid plate likely associated with right pterygoid muscle injuries. There is diffuse fat stranding in the country printer apprentice spaces bilaterally. The eye globes are intact. Minimal opacification in theright mastoid air cells. The mastoid air cells are otherwise grossly clear. Extensive fascial soft tissue tissue swelling is present as outlined above. Cervical spine: There is gentle cervical kyphosis. Small rudimentary cervical ribs atthe C7 vertebral body. Vertebral bodies are normal in height withoutevidence of acute fracture. Other than middle atlantoaxial joint osteoarthritis, the craniocervical junction appears normal. There is mild degenerative disc disease. No central canal stenosis is seen. There are varyingdegrees of mild facet osteoarthritis. There are varying degrees of mild uncovertebral joint osteoarthritis with the same degree of mild to moderate neural foraminal stenosis at these levels. No soft tissue abnormality is identified. Thoracic spine: Minimal dextrocurvature of the thoracic spine. The alignment isotherwise maintained. Vertebral bodies are normal in height without evidence of acute fracture. The intervertebral discs appear normal. No centralcanal stenosis is seen. The facets appear normal. No neural foraminalstenosis is seen. No soft tissue abnormality is identified. Lumbar spine: The alignment is normal. Vertebral bodies are normal in height without evidence of acute fracture. The intervertebral discs appear normal. No central canal stenosis is seen. The facets appear normal. No neural foraminal stenosis is seen. No soft tissue abnormality is identified. IMPRESSION: 1.Suspected trace subarachnoid hemorrhage in the posterior fossa. 2.Bilateral, minimally displaced or nondisplaced occipital bonefractures extending to the foramen magnum. 3.Trace extra-axial pneumocephalus along the floor of the left anterior cranial fossa. Adjacent brain parenchymal contusions are not excluded. 4.Otherwise, no acute intracranial hemorrhage, mass effect, or midline shift. 5.Extensive facial bone fractures including features of bilateral LeFort type III fractures and bilateral ZMC fractures. 6.Nasal bone, nasal septum, hard palate, and mandibular fractures as outlined. 7.Extensive associated facial soft tissue injuries as outlined. 8.No evidence of acute fracture in the cervical, thoracic, or lumbarspine. Dictated by Leonidas Ambriz MD (founder ceo & president). This report was approved by Leonidas Ambriz on 04/12/2022 10:48 AM . IDr. MADELINE have personally reviewed and interpreted this examination/study. This report was electronically signed by MADELINE EMANUEL on04/12/2022 11:06 AM . Jonathan Wilkinson MD CT ORDERABLES * XR PELVIS 1 OR 2VW (04/12/2022 4:32 AM CDT) Anatomical Region Laterality Modality Pelvis Radiographic Xiomara ging 04/12/2022 4:33 AM CDT Impressions 04/12/2022 11:03 PM CDT IMPRESSION: No acute osseous abnormality. Report drafted by Leonidas Ambriz MD (founder ceo & president) Dr. CHERRI Monroe have personally reviewed and interpreted this examination/study. This report was electronically signed by CHERRI CONNORS on 04/12/2022 11:03 PM . Narrative 04/12/2022 11:03 PM CDT EXAMINATION: XR PELVIS 1 OR 2VW HISTORY: Trauma Fracture suspected COMPARISON: None. FINDINGS: No acute fracture is identified. The femoral heads appear well-seated within their respective acetabula. The joint spaces are preserved. The pubic symphysis is intact. The osseous architecture and density are normal. The sacroiliac joints are normal. Procedure Note Cherri Connors MD - 04/12/2022 EXAMINATION: XR PELVIS 1 OR 2VW HISTORY: Trauma Fracture suspected COMPARISON: None. FINDINGS: No acute fracture is identified. The femoral heads appear well-seated within their respective acetabula. The joint spaces are preserved. The pubic symphysis is intact. The osseous architecture and density are normal. The sacroiliac joints are normal. IMPRESSION: No acute osseous abnormality. Report drafted by Leonidas Ambriz MD (founder ceo & president) Dr. CHERRI Monroe have personally reviewed and interpreted this examination/study. This report was electronically signed by CHERRI CONNORS on 04/12/2022 11:03 PM . Jonathan Wilkinson MD DIAGNOSTIC IMAGING O RDERABLES * (ABNORMAL) TEG 6 GLOBAL HEMOSTASIS W/ LYSIS (04/12/2022 4:06 AM CDT) Citrated Kaolin R (Reaction Time) 4.2(L) 4.6 - 9.1 min 04/12/2022 5:22 AM CDT [facility] Citrated Kaolin LY30 (Lysis) 0.8 0.0 - 2.6 % 04/12/2022 5:22 AM CDT [facility] Citrated RapidTEG MA (Max Amplitude) 58.6 52.0 - 70.0 mm 04/12/2022 5:22 AM CDT [facility] Citrated Functional Fibrinogen MA (Max Amplitude) 18.8 15.0 - 32.0 mm 04/12/2022 5:22 AM T [facility] Blood BLOOD SPECIMEN / Unknown Venipuncture / Unknown 04/12/2022 4:06 AM CDT 04/12/2022 4:21 AM CDT Jonathan Wilkinson MD LAB - HEMATOLOGY ORD ERABLES [address] [address], [facility] [phone] * (ABNORMAL) TEG 6S PLATELET MAPPING (04/12/2022 4:06 AM CDT) TEGPLM (Max Amplitude) Koalin 61 53 - 68 mm 04/12/2022 5:34 AM CDT [facility] TEGPLM (Max Amplitude) ACTF 2 2 - 19 mm 04/12/2022 5:34 AM CDT [facility] TEGPLM (Max Amplitude) ADP 37(L) 45 - 69 mm 04/12/2022 5:34 AM CDT [facility] TEGPLM (Max Amplitude) AA 36(L) 51 - 71 mm 04/12/2022 5:34 AM CDT [facility] TEGPLM %Inhibition ADP 42(H) 0 - 17 % 04/12/2022 5:34 AM CDT [facility] TEGPLM %Inhibition AA 43(H) 0 - 11 % 04/12/2022 5:34 AM CDT [facility] TEGPLM %Aggregation ADP 58(L) 83 - 100 % 04/12/2022 5:34 AM CDT [facility] TEGPLM % Aggregation AA 57(L) 89 - 100 % 04/12/2022 5:34 AM CDT [facility] Blood BLOOD SPECIMEN / Unknown Venipuncture / Unknown 04/12/2022 4:06 AM CDT 04/12/2022 4:21 AM CDT Jonathan Wilkinson MD LAB - HEMATOLOGY ORD BALA Performing Organization Address [facility]/ZIP Co de Phone Number [address] [address], [employer] [phone] * (ABNORMAL) ALCOHOL ETHYL BLOOD (04/12/2022 4:06 AM CDT) Ethanol (mg/dL) 226(H) <10 mg/dL 4:49 AM CDT [facility] Ethanol Calculated (g/dL) 0.226(H) <=0.010 g/dL 04/12/2022 4:49 AM CDT [facility] Blood BLOOD SPECIMEN / Unknown Venipuncture / Unknown 04/12/2022 4:06 AM CDT 04/12/2022 4:25 AM CDT Narrative [facility] - 04/12/2022 4:49 AM CDT Ethanol Interp <10: None Detected. Depression of TRANSFER CLERK: >100 mg/dl Potentially Critical: >250 mg/dl Potentially Fatal >400 mg/dl Ethanol in the patient's blood will contribute to the osmolar gap. Ethanol's contribution to the osmolar gap can be estimated by dividing the concentration of ethanol in mg/dL by 4.6. This test is for clinical use only and does not equal a STEPHANE for legal purposes. Jonathan Wilkinson MD LAB - CHEMISTRY ORDYanni MATTHEWS Performing Organization Address [facility]/ZIP Co de Phone Number [address] [address], [employer] [phone] Care Teams Landscaping Manager Relationship Specialty Start Date End Date Solange Sandoval MD [address] [phone] PCP - General Internal Medicine 09/02/24
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
--- OUTSIDE RECORDS SUMMARY | 2024-12-17 12:37 | XMS_ITS | Clinical Summary ---
Author Organization [facility] Address [address] [place] [address] Care Team Providers Care Heading And Priming Operator Name Role Phone Solange Sandoval MD Primary Care Provider Allergies Active Allergy Reactions Criticality Noted Date Comments Codeine Rash,Hives Medium 04/16/2022 Sertraline Hives 04/28/2024 Medications dilTIAZem ER 180 MG 24 hr capsule 07/27/2023 Active lisinopril (PRINIVIL) 20 MG tablet Take 1 tablet every day by oral route. Active busPIRone (BUSPAR) 15 MG tablet Take 1 tablet 3 times a day by oral route. Active buPROPion XL (WELLBUTRIN XL) 150 MG 24 hr tablet Take 1 tablet every day by oral route. Active atorvastatin (LIPITOR) 40 MG tablet Take 1 tablet (40 mg total) by mouth nightly at bedtime. Active fish oil (OMEGA-3 FATTY ACID) 1000 MG Cap capsule Take 1 capsule (1,000 mg total) by mouth. Active traZODone (DESYREL) 100 MG tablet Take 1 tablet every day by oral route at bedtime. Active oxyCODONE-aceta minophen (PERCOCET) 5-325 MG tabletIndicatio ns:Acute Pain < 3 Day Supply Take 1 tablet by mouth every 4 (four) hours as needed for Pain. Indications: Acute Pain < 3 Day Supply 12 tablet 09/01/2024 Active Social History Tobacco Use Types Packs/Day Years Used Date Smoking Tobacco: Never Smokeless Tobacco: Never Alcohol Use Standard Drinks/Week Comments Yes 0 (1 standard drink = 0.6 oz pur e alcohol) socially Comments No Sex and Gender Information Value Date Recorded Sex Assigned at Not on file Legal Sex Female 6:59 PM DURABILITY TECHNICIAN Gender Identity Not on file Sexual Orientation Not on file Last Filed Vital Signs Vital Sign Reading Time Taken Comments Blood Pressure 132/66 09/01/2024 10:22 PM DURABILITY TECHNICIAN Pulse 79 09/01/2024 10:22 PM DURABILITY TECHNICIAN Temperature 36.6 C (97.9 F) 09/01/2024 10:22 PM DURABILITY TECHNICIAN Respiratory Rate 18 09/01/2024 10:22 PM DURABILITY TECHNICIAN Oxygen Saturation 95% 09/01/2024 10:22 PM DURABILITY TECHNICIAN Inhaled Oxygen Concentration - - Weight 69.9 kg (154 lb) 09/01/2024 4:58 PM DURABILITY TECHNICIAN Height 162.6 cm (5' 4 ) 09/01/2024 4:58 PM DURABILITY TECHNICIAN Body Mass Index 26.43 09/01/2024 4:58 PM DURABILITY TECHNICIAN Plan of Treatment Health Maintenance Due Date Last Done Comments Cervical Cancer Screening Pa p Smear (Age 30 to 64) Every 3 Years 1973 Colorectal Cancer Screening Colonoscopy (10 Years) 1973 Annual Physical 1976 Hepatitis C 1991 Cervical Cancer Screening Pa p with HPV Testing (Age 30 to 64) Every 5 Years 2003 Cervical Cancer Screening wi th HPV 2003 Mammogram Screening 2013 Hepatitis B Vaccines (3 of 3 - 19+ 3-dose series) 08/24/2015 03/27/2015, 02/21/2015 Zoster Vaccines (1 of 2) 2023 COVID-19 Vaccine (4 - 2023-2 5 season) 2024 01/31/2022, 12/23/2020, 11/25/2020 DTaP, Tdap and Td Vaccines ( 2 - Td or Tdap) 04/12/2032 04/12/2022 Influenza Adult Completed 08/24/2024, 07/16/2021 Meningococcal B Vaccine Aged Out No l onger eligible based on patient's age to complete this topic Meningococcal Vaccine Aged Out No radha eve eligible based on patient's age to complete this topic Pneumococcal Vaccine: Pediatrics (0 to 5 Years) and At-Risk Patients (6 to 64 Years) Aged Out No longer eligible b ased on patient's age to complete this topic RSV Immunizations Under 20 Months Aged Out No longer eligible b ased on patient's age to complete this topic Insurance [facility] Care Teams Heading And Priming Operator Relationship Specialty Start Date End Date Solange Sandoval MD [facility] [place] [address] PCP - General INTERNAL MEDICINE 08/06/24
--- OUTSIDE RECORDS SUMMARY | 2024-12-17 12:37 | XMS_ITS | Encounter Summary ---
Author Organization [facility] Address [address] [facility] [place] [address] Care Team Providers Care Cage Operator Name Role Phone Geena Avila Primary Care Provider [phone] Solnage Sandoval MD Primary Care Provider Encounter Details Date Type Department Care Team (Late st Contact Info) Description 04/12/2022 Ophth Exam [facility] [address] [place] [address] Allison Garrison MD [address] [place] [id number] Social History Tobacco Use Types Packs/Day Years Used Date Smoking Tobacco: Never Assessed AUDIT-C Answer Date Recorded Q1: How often [...] on file documented as of this encounter Plan of Treatment Not on file documented as of this encounter Visit Diagnoses Not on filedocumented in this encounter Care Teams Cage Operator Relationship Specialty Start Date End Date Geena Avila, 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
--- OUTSIDE RECORDS SUMMARY | 2024-12-17 12:37 | XMS_ITS | Clinical Summary ---
Author Organization [facility] Address [address] [address] Care Team Providers Care Survey Compiler Name Role Phone Solange Sandoval MD Primary Care Provider Source Comments [facility],non-owned Affiliates and Associated Physician Practices is amultiple site organization consisting of ambulatory clinics and hospital sitesin [place], [place], [place] and [place]. This disclosure is being madepursuant to the Care Everywhere program and may not contain all information available regarding this patient. Last updated 18.[facility] Allergies Active Allergy Reactions Criticality Noted Date [...] Comments Blood Pressure 139/99 09/07/2024 2:39 PM ENTERPRISE ARCHITECT Pulse 85 09/07/2024 2:39 PM ENTERPRISE ARCHITECT Temperature 36.7 C (98 F) 09/07/2024 2:39 PM ENTERPRISE ARCHITECT Respiratory Rate 18 09/03/2024 8:10 AM ENTERPRISE ARCHITECT Oxygen Saturation 99% 09/07/2024 2:39 PM ENTERPRISE ARCHITECT Inhaled Oxygen Concentration 30% 04/13/2022 4 :10 PM CDT Weight 72.6 kg (160 lb) 09/07/2024 2:39 PM ENTERPRISE ARCHITECT Height 160 cm (5' 3 ) 09/07/2024 2:39 PM ENTERPRISE ARCHITECT Body Mass Index 28.34 09/07/2024 2:39 PM ENTERPRISE ARCHITECT Plan of Treatment Health Maintenance Due Date Last Done Comments COLOGUARD (AGES 45-75) - COLON CA SCREENING 1973 COLON MONITORING 1973 COLONOSCOPY - COLON CA SCREENING 1973 CT COLONOGRAPHY - COLON CA SCREENING 1973 Colorectal Cancer Screening 1973 FIT - COLON CA SCREENING 1973 FLEX SIG - COLON CA SCREENING 1973 MAMMOGRAM 1973 PAP SMEAR 1973 HIV SCREENING 1988 HEPATITIS C SCREENING 10/24/1991 HEPATITIS B VACCINE (3 of 3 - 19+ 3-dose series) 08/24/2015 03/27/2015, 02/21/2015 PNEUMOCOCCAL VACCINE 50+ (1 of 1 - PCV) 2023 ZOSTER VACCINE (1 of 2) 2023 COVID-19 VACCINE (4 - season) 2024 01/31/2022, 12/23/2020, 11/25/2020 DEPRESSION SCREENING 10/12/2024 07/08/2022 SCREENING FOR DIABETES 09/03/2027 , 09/02/2024, 03/25/2023, Additional history exists DTAP/TDAP/TD VACCINES (2 - Td or Tdap) 04/12/2032 04/12/2022 INFLUENZA VACCINE Completed 08/24/2024, 07/16/2021 HIB VACCINE Aged Out No longer eligi ble based on patient's age to complete this topic HPV VACCINE Aged Out No longer eligi ble based on patient's age to complete this topic MENINGOCOCCAL (Group B) VACCINE Aged Out No longer eligible based on patient's age to complete this topic MENINGOCOCCAL VACCINE Aged Out No radha eve eligible based on patient's age to complete this topic PNEUMOCOCCAL VACCINE Aged Out No long er eligible based on patient's age to complete this topic Medical Devices Implanted Type Area Digging Machine Operator Device Identifier Shelf Expiration Date Model / Serial / Lot Nail Im 9mm 36cm Versanail Fem Tmx Unv Implanted:Qty : 1 on 04/14/2022 by Malcom Andrews MD at [facility] Right: [employer]ur [employer] 06/10/2024 1813-09-3 60 / / [id number] Screw 6.5mm 60mm Ft Sld Slf-Tap Drv End Implanted:Qty : 1 on 04/14/2022 by Malcom Andrews MD at [facility] Right: [employer]ur [employer] [id number] / / Screw 4.5mm 40mm Oblq Ft Slf-Tap Sld 2 Implanted:Qty : 1 on 04/14/2022 by Malcom Andrews MD at [facility] Right: Femur [employer] [id number] / / Plate 24 Hl Mdfc .6mm Std Str Leibinger Implanted:Qty : 1 on 04/16/2022 at [facility] N/A: Maxilla [employer] [id number] / / Plate 4 Hl Bar Mdfc .6mm Std Crv Implanted:Qty : 1 on 04/16/2022 at [facility] N/A: Maxilla [employer] [id number] / / Screw 2.3mm 10mm Lck Xpn Mxlfcl Implanted:Qty : 2 on 04/16/2022 at [facility] N/A: Mandible Agusto Craniomaxillofacial [id number] / / Screw 2.3mm 12mm Lck Xpn Mxlfcl Implanted:Qty : 4 on 04/16/2022 at [facility] N/A: Mandible [employer] [id number] / / Plate,2.0mm 6 Hole With Span Implanted:Qty : 1 on 04/16/2022 at [facility] N/A: Mandible [employer] [id number] / / Bone Screw 1.7x5mm Implanted:Qty : 15 on 04/16/2022 at [facility] N/A: Maxilla [employer] [id number] / / Explanted Type Area Digging Machine Operator Device Identifier Shelf Expiration Date Model / Serial / Lot Gw Orth 80cm Versanail Ball Nose Strl Explanted:Qty : 1 on 04/14/2022 by Malcom Andrews MD at [facility] Right: Femur [employer] 11/25/2031 [id number] / / [id number] Bone Screw 1.7x6mm Explanted:Qty : 1 on 04/16/2022 at [facility] N/A: Maxilla [place] Craniomaxill[employer]acial [id number] / / Plate 4 Hole Curved With Span Explanted:Qty : 1 on 04/16/2022 at [facility] N/A: Maxilla Agusto Craniomaxillofacial [id number] / / Wire Srg Stl Mfl Sz 4 22g 18inch Explanted:Qty : 1 on 04/16/2022 at [facility] N/A: Maxilla [employer] DS22 / / Screw 2mm 8mm Slf Drl Xpn Lgt Wire Mndb Explanted:Qty : 6 [facility] [id number] / / Procedures Procedure Name Priority Date/Time Associated Diagnosis Comments BASIC METABOLIC PANEL (CALCIUM TOTAL) Routine 09/03/2024 4:56 AM ENTERPRISE ARCHITECT Leg abscess from Last 3 Months or Most Recently Relevant to Health Maintenance Results * (ABNORMAL) BASIC METABOLIC PANEL (CALCIUM TOTAL) (09/03/2024 4:56 AM ENTERPRISE ARCHITECT) BUN 21 7 - 26 mg/dL 09/03/2024 5:33 AM [facility] Creatinine 0.98(H) 0.56 - 0.96 mg/dL 09/03/2024 5:33 AM [facility] Sodium 135(L) 136 - 145 mmol/L 09/03/2024 5:33 AM [facility] Potassium 4.6(H) 3.5 - 4.5 mmol/L 09/03/2024 5:33 AM [facility] Chloride 109(H) 98 - 107 mmol/L 09/03/2024 5:33 AM [facility] CO2 20(L) 22 - 29 mmol/L 09/03/2024 5:33 AM [facility] Glucose 198(H) 70 - 99 mg/dL 09/03/2024 5:33 AM [facility] Calcium 8.7 8.4 - 10.2 mg/dL 09/03/2024 5:33 AM [facility] Anion Gap 6 6 - 16 09/03/2024 5:33 AM [facility] BUN/Creatinine Ratio 21 7 - 23 09/03/2024 5:33 AM [facility] Osmolality Calculated 289 275 - 295 mOsm/kg 09/03/2024 5:33 AM [facility] eGFR by CKD-EPI 70(L) >=90 mL/min/1.7 3 m2 09/03/2024 5:33 AM [facility] Blood BLOOD SPECIMEN / Unknown Lab Venipuncture / Unknown 09/03/2024 4:56 AM ENTERPRISE ARCHITECT 09/03/2024 5:06 AM ENTERPRISE ARCHITECT Breanne Zafar MD LAB - CHEMISTRY ORDERABLES [facility] [address] [place] [address], [facility] [phone] from Last 3 Months or Most Recently Relevant to Health Maintenance Insurance Payer Benefit Plan / Group Subscriber ID Effective Dates Phone Address Type [facility] CHOICE/SELECT/C HOICE PLUS/ALL PAYORS [id number] 10/12/2021-Pres ent [address] [address] [place] [address] [facility] CHOICE/SELECT/C HOICE PLUS/ALL PAYORS [id number] 10/12/2021-Pres ent [address] [address] [place] [address] [facility] CHOICE/SELECT/C HOICE PLUS/ALL PAYORS [id number] 10/12/2021-Pres ent [address] [address] [place] [address] [facility] CHOICE/SELECT/C HOICE PLUS/ALL PAYORS [id number] 10/12/2021-Pres ent [address] [address] [place] [address] [facility] CHOICE/SELECT/C HOICE PLUS/ALL PAYORS [id number] 10/12/2021-Pres ent [address] [address] [place] [address] O [facility] CHOICE/SELECT/C HOICE PLUS/ALL PAYORS [id number] 10/12/2021-Pres ent [address] [address] [place] [address] O [facility] CHOICE/SELECT/C HOICE PLUS/ALL PAYORS [id number] 10/12/2021-Pres ent [address] [address] [place] [address] O [facility] CHOICE/SELECT/C HOICE PLUS/ALL PAYORS [id number] 10/12/2021-Pres ent [address] [address] [place] [address] [facility] CHOICE/SELECT/C HOICE PLUS/ALL PAYORS [id number] 10/12/2021-Pres ent [address] [address] [place] [address] [facility] CHOICE/SELECT/C HOICE PLUS/ALL PAYORS [id number] 10/12/2021-Pres ent [address] [address] [place] [address] [facility] CHOICE/SELECT/C HOICE PLUS/ALL PAYORS [id number] 10/12/2021-Pres ent [address] [address] [place] [address] O [facility] CHOICE/SELECT/C HOICE PLUS/ALL PAYORS [id number] 10/12/2021-Pres ent [address] [address] [place] [address] [facility] CHOICE/SELECT/C HOICE PLUS/ALL PAYORS [id number] 10/12/2021-Pres ent [address] [address] [place] [address] [facility] CHOICE/SELECT/C HOICE PLUS/ALL PAYORS [id number] 10/12/2021-Pres ent [address] [address] [place] [address] O [facility] CHOICE/SELECT/C HOICE PLUS/ALL PAYORS [id number] 10/12/2021-Pres ent [address] [address] [place] [address] O [facility] CHOICE/SELECT/C HOICE PLUS/ALL PAYORS [id number] 10/12/2021-Pres ent [address] [address] [place] [address] O [facility] CHOICE/SELECT/C HOICE PLUS/ALL PAYORS [id number] 10/12/2021-Pres ent [address] [address] [place] [address] [facility] CHOICE/SELECT/C HOICE PLUS/ALL PAYORS [id number] 10/12/2021-Pres ent [phone] [address] [address] [place] [address] [facility] CHOICE/SELECT/C HOICE PLUS/ALL PAYORS [id number] 10/12/2021-Pres ent [address] [address] [place] [address] [facility] CHOICE/SELECT/C HOICE PLUS/ALL PAYORS [id number] 10/12/2021-Pres ent [address] [address] [place] [address] O [facility] CHOICE/SELECT/C HOICE PLUS/ALL PAYORS [id number] 10/12/2021-Pres ent [address] [address] [place] [address] O [facility] CHOICE/SELECT/C HOICE PLUS/ALL PAYORS [id number] 10/12/2021-Pres ent [address] [address] [place] [address] [facility] CHOICE/SELECT/C HOICE PLUS/ALL PAYORS [id number] 10/12/2021-Pres ent [address] [address] [place] [address] O [facility] CHOICE/SELECT/C HOICE PLUS/ALL PAYORS [id number] 10/12/2021-Pres ent [address] [address] [place] [address] O [facility] CHOICE/SELECT/C HOICE PLUS/ALL PAYORS [id number] 10/12/2021-Pres ent [address] [address] [place] [address] O [facility] CHOICE/SELECT/C HOICE PLUS/ALL PAYORS [id number] 10/12/2021-Pres ent [address] [address] [place] [address] [facility] CHOICE/SELECT/C HOICE PLUS/ALL PAYORS [id number] 10/12/2021-Pres ent [address] [address] [place] [address] [facility] CHOICE/SELECT/C HOICE PLUS/ALL PAYORS [id number] 10/12/2021-Pres ent [address] [address] [place] [address] [facility] CHOICE/SELECT/C HOICE PLUS/ALL PAYORS [id number] 10/12/2021-Pres ent [address] [address] [place] [address] O [facility] CHOICE/SELECT/C HOICE PLUS/ALL PAYORS [id number] 10/12/2021-Pres ent [address] [address] [place] [address] O [facility] CHOICE/SELECT/C HOICE PLUS/ALL PAYORS [id number] 10/12/2021-Pres ent [address] [address] [place] [address] [facility] CHOICE/SELECT/C HOICE PLUS/ALL PAYORS [id number] 10/12/2021-Pres ent [address] [address] [place] [address] [facility] CHOICE/SELECT/C HOICE PLUS/ALL PAYORS [id number] 10/12/2021-Pres ent [address] [address] [place] [address] [facility] CHOICE/SELECT/C HOICE PLUS/ALL PAYORS [id number] 10/12/2021-Pres ent [address] [address] [place] [address] [facility] CHOICE/SELECT/C HOICE PLUS/ALL PAYORS [id number] 10/12/2021-Pres ent [address] [address] [place] [address] [facility] CHOICE/SELECT/C HOICE PLUS/ALL PAYORS [id number] 10/12/2021-Pres ent [address] [address] [place] [address] [facility] CHOICE/SELECT/C HOICE PLUS/ALL PAYORS [id number] 10/12/2021-Pres ent [address] [address] [place] [address] [facility] CHOICE/SELECT/C HOICE PLUS/ALL PAYORS [id number] 10/12/2021-Pres ent [address] [address] [place] [address] [facility] CHOICE/SELECT/C HOICE PLUS/ALL PAYORS [id number] 10/12/2021-Pres ent [address] [address] [place] [address] [facility] CHOICE/SELECT/C HOICE PLUS/ALL PAYORS [id number] 10/12/2021-Pres ent [address] [address] [place] [address] [facility] CHOICE/SELECT/C HOICE PLUS/ALL PAYORS [id number] 10/12/2021-Pres ent [address] [address] [place] [address] [facility] CHOICE/SELECT/C HOICE PLUS/ALL PAYORS [id number] 10/12/2021-Pres ent [address] [address] [place] [address] [facility] CHOICE/SELECT/C HOICE PLUS/ALL PAYORS [id number] 10/12/2021-Pres ent [address] [address] [place] [address] [facility] CHOICE/SELECT/C HOICE PLUS/ALL PAYORS [id number] 10/12/2021-Pres ent [address] [address] [place] [address] [facility] CHOICE/SELECT/C HOICE PLUS/ALL PAYORS [id number] 10/12/2021-Pres ent [address] [address] [place] [address] [facility] CHOICE/SELECT/C HOICE PLUS/ALL PAYORS [id number] 10/12/2021-Pres ent [address] [address] [place] [address] [facility] CHOICE/SELECT/C HOICE PLUS/ALL PAYORS [id number] 10/12/2021-Pres ent [address] [address] [place] [address] [facility] CHOICE/SELECT/C HOICE PLUS/ALL PAYORS [id number] 10/12/2021-Pres ent [address] [address] [place] [address] [facility] CHOICE/SELECT/C HOICE PLUS/ALL PAYORS [id number] 10/12/2021-Pres ent [address] [address] [place] [address] [facility] CHOICE/SELECT/C HOICE PLUS/ALL PAYORS [id number] 10/12/2021-Pres ent [address] [address] [place] [address] [facility] CHOICE/SELECT/C HOICE PLUS/ALL PAYORS [id number] 10/12/2021-Pres ent [address] [address] [place] [address] [facility] CHOICE/SELECT/C HOICE PLUS/ALL PAYORS [id number] 10/12/2021-Pres ent [address] [address] [place] [address] [facility] CHOICE/SELECT/C HOICE PLUS/ALL PAYORS [id number] 10/12/2021-Pres ent [address] [address] [place] [address] [facility] CHOICE/SELECT/C HOICE PLUS/ALL PAYORS [id number] 10/12/2021-Pres ent [address] [address] [place] [address] [facility] CHOICE/SELECT/C HOICE PLUS/ALL PAYORS [id number] 10/12/2021-Pres ent [address] [address] [place] [address] [facility] CHOICE/SELECT/C HOICE PLUS/ALL PAYORS [id number] 10/12/2021-Pres ent [address] [address] [place] [address] [facility] CHOICE/SELECT/C HOICE PLUS/ALL PAYORS [id number] 10/12/2021-Pres ent [address] [address] [place] [address] [facility] CHOICE/SELECT/C HOICE PLUS/ALL PAYORS [id number] 10/12/2021-Pres ent [address] [address] [place] [address] [facility] CHOICE/SELECT/C HOICE PLUS/ALL PAYORS [id number] 10/12/2021-Pres ent [address] [address] [place] [address] [facility] CHOICE/SELECT/C HOICE PLUS/ALL PAYORS [id number] 10/12/2021-Pres ent [address] [address] [place] [address] O [facility] CHOICE/SELECT/C HOICE PLUS/ALL PAYORS [id number] 10/12/2021-Pres ent [address] [address] [place] [address] O [facility] CHOICE/SELECT/C HOICE PLUS/ALL PAYORS [id number] 10/12/2021-Pres ent [address] [address] [place] [address] [facility] CHOICE/SELECT/C HOICE PLUS/ALL PAYORS [id number] 10/12/2021-Pres ent [address] [address] [place] [address] [facility] CHOICE/SELECT/C HOICE PLUS/ALL PAYORS [id number] 10/12/2021-Pres ent [address] [address] [place] [address] [facility] CHOICE/SELECT/C HOICE PLUS/ALL PAYORS [id number] 10/12/2021-Pres ent [address] [address] [place] [address] [facility] CHOICE/SELECT/C HOICE PLUS/ALL PAYORS [id number] 10/12/2021-Pres ent [address] [address] [place] [address] [facility] CHOICE/SELECT/C HOICE PLUS/ALL PAYORS [id number] 10/12/2021-Pres ent [address] [address] [place] [address] [facility] CHOICE/SELECT/C HOICE PLUS/ALL PAYORS [id number] 10/12/2021-Pres ent [address] [address] [place] [address] [facility] CHOICE/SELECT/C HOICE PLUS/ALL PAYORS [id number] 10/12/2021-Pres ent [address] [address] [place] [address] O [facility] CHOICE/SELECT/C HOICE PLUS/ALL PAYORS [id number] 10/12/2021-Pres ent [address] [address] [place] [address] O [facility] CHOICE/SELECT/C HOICE PLUS/ALL PAYORS [id number] 10/12/2021-Pres ent [address] [address] [place] [address] O [facility] CHOICE/SELECT/C HOICE PLUS/ALL PAYORS [id number] 10/12/2021-Pres ent [address] [address] [place] [address] O [facility] CHOICE/SELECT/C HOICE PLUS/ALL PAYORS [id number] 10/12/2021-Pres ent [address] [address] [place] [address] [facility] CHOICE/SELECT/C HOICE PLUS/ALL PAYORS [id number] 10/12/2021-Pres ent [address] [address] [place] [address] [facility] CHOICE/SELECT/C HOICE PLUS/ALL PAYORS [id number] 10/12/2021-Pres ent [address] [address] [place] [address] [facility] CHOICE/SELECT/C HOICE PLUS/ALL PAYORS [id number] 10/12/2021-Pres ent [address] [address] [place] [address] [facility] CHOICE/SELECT/C HOICE PLUS/ALL PAYORS [id number] 10/12/2021-Pres ent [address] [address] [place] [address] [facility] CHOICE/SELECT/C HOICE PLUS/ALL PAYORS [id number] 10/12/2021-Pres ent [phone] [address] [place] [address] O [facility] CHOICE/SELECT/C HOICE PLUS/ALL PAYORS [id number] 10/12/2021-Pres ent [phone] [address] [address] [place] [address] O [facility] CHOICE/SELECT/C HOICE PLUS/ALL PAYORS [id number] 10/12/2021-Pres ent [phone] [address] [address] [place] [address] O [facility] CHOICE/SELECT/C HOICE PLUS/ALL PAYORS [id number] 10/12/2021-Pres ent [phone] [address] [address] [place] [address] O [employer] [id number] 05/22/2014-Pre sent [address] [place] [address] PPO [facility] CHOICE PLUS [id number] 10/12/2023-Pres ent [phone] [address] [place] [address] Commercial MEDICAID - OUT OF STATE MEDICAID - [place] PUBLIC AID [id number] Effective for all dates [address] [address] [place] [address] Medicaid [facility] CHOICE/SELECT/C HOICE PLUS/ALL PAYORS [id number] 10/12/2021-Pres ent [phone] [address] [address] [place] [address] O [employer] [id number] 05/22/2014-Pre sent [address] [place] [address] PPO MEDICAID - OUT OF [facility] MEDICAID - [place] PUBLIC AID [id number] Effective for all dates [address] [address] [place] [address] Medicaid [facility] CHOICE/SELECT/C HOICE PLUS/ALL PAYORS [id number] 10/12/2021-Pres ent [address] [address] [place] [address] O [employer]M [employer] [id number] 05/22/2014-Pre sent [address] [place] [address] PPO MEDICAID - OUT OF [facility] MEDICAID [facility] PUBLIC AID [id number] Effective for all dates [address] [address] [place] [address] Medicaid [facility] CHOICE/SELECT/C HOICE PLUS/ALL PAYORS [id number] 10/12/2021-Pres ent [address] [address] [place] [address] O ANTH BL[employer]ITIONAL [id number] 05/22/2014-Pre sent [address] [place] [address] PPO MEDICAID - OUT OF STATE MEDICAID [facility] PUBLIC AID [id number] Effective for all dates [address] [address] [place] [address] Medicaid [employer] [facility] [facility] UHC CHOICE/SELECT/C HOICE PLUS/ALL PAYORS [id number] 10/12/2021-Pres ent [phone] [address] [address] [place] [address] O [facility] BLUE CROSS TRADITIONAL [id number] 05/22/2014-Pre sent [address] [place] [address] PPO MEDICAID - OUT OF STATE MEDICAID - [place] PUBLIC AID [id number] Effective for all dates [address] [address] [place] [address] Medicaid [employer] UHC CHOICE/SELECT/C HOICE PLUS/ALL PAYORS [id number] 10/12/2021-Pres ent [phone] [address] [address] [place] [address] [facility] BLUE CROSS TRADITIONAL [id number] 05/22/2014-Pre sent [address] [place] [address] PPO [facility] CHOICE/SELECT/C HOICE PLUS/ALL PAYORS [id number] 10/12/2021-Pres ent [phone] [address] [address] [place] [address] O MEDICAID - OUT OF [facility] MEDICAID [facility] PUBLIC AID [id number] Effective for all dates [address] [address] [place] [address] Medicaid SELF PAY NO INSURANCE SELF PAY [employer]URANCE Effective for all dates Self Pay SELF PAY NO INSURANCE [employer] Effective for all dates [address] [place] [address] Self Pay Advance Directives Documents on File Type Date 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
--- OUTSIDE RECORDS SUMMARY | 2024-12-17 12:39 | XMS_ITS | Patient Health Record ---
Author Organization [facility] [employer] Address [address] [place] [address] Care Team Providers [employer] Teacher Name Role Phone Jaime TAVERAS, Solange Primary Care Provider Un available Darlene Hill Unavailable [phone] Cami Robin Unavailable [phone] Migration, Provider Unavailable Unavailable Allergies Allergen (clinical drug ingredient) Drug/Non Drug Allergy documented on EMR Reaction Allergy Type Onset Date Status codeine Codeine Unknown Drug Allergy 03/01/2024 Active Reason For Referral No Information Medications Medication SIG (Take, Route, Frequency, Duration) Notes Start Date End Date Status Prazosin HCl 1 MG 1 capsule at bedtime Orally Once a day for 90 days Active Quinapril HCl 20 MG Oral 03/01/2024 Not-Taking CALCIUM 200 MG ( CALCIUM CARBONATE 500 MG) CHEWABLE TABLET *Reorder from [employer] for eRx and Interaction Alerts* 03/01/2024 Not-Taking HYDROcodone-Acetamino phen 5-325 MG Oral 03/01/2024 Not-Taking FLUoxetine HCl 20 MG 1 capsule Oral Once a day for 90 days 03/01/2024 Active buPROPion HCl 100 MG Oral 03/01/2024 Not-Taking traZODone HCl 100 MG 1 tablet at bedtime Oral bedtime for 90 days Active Benzonatate 200 MG Oral 03/01/2024 Not-Taking busPIRone HCl 15 MG 1 tablet Oral three times a day for 90 days Active traMADol HCl 50 MG Oral 03/01/2024 Not-Taking hydrOXYzine HCl 10 MG 1 tablet as needed Orally three times a day for 90 days Active Naproxen 375 MG Oral 03/01/2024 Not -Taking Atorvastatin Calcium 40 MG 1 tablet Oral Once a day 03/01/2024 Active dilTIAZem HCl ER 180 mg Oral *Reorder from [employer] for eRx and Interaction Alerts* 03/01/2024 Active buPROPion HCl ER (XL) 300 MG 1 tablet daily Oral Once a day for 90 days Appointment needed Active Sulfamethoxazole-Trim ethoprim 800-160 MG Oral 03/01/2024 Not-Taki ng FLUoxetine HCl 40 MG 1 capsule Oral Once a day for 90 days 03/01/2024 Active Cyclobenzaprine HCl 10 MG Oral 03/01/2024 Not-Taking Immunizations Vaccine Route Administration Date Status Comme nts Tdap Unknown 10/12/2012 Administered Pfizer-Biontech Covid-19 Vac cine 1st dose Unknown 01/31/2022 Administered Pfizer Biontech Covid-19 Vac cine 2nd dose Unknown 11/25/2020 Administered Pfizer Biontech Covid-19 Vac cine 2nd dose Unknown 12/23/2020 Administered Hep B, adult dosage Unknown 02/21/2015 Administered Hep B, adult dosage Unknown 03/27/2015 Administered Hep A, Adult Unknown 07/28/2006 Administered Hep A, Adult Unknown 04/27/2007 Administered Social History Tobacco Use: Social History Observation Description Date Details (start date - stop date) Never Smoker NA - NA Sex Assigned At : Social History Observation Description Sex Assigned At Female Tobacco Control (Standard) Question Answer Notes Tobacco use: Nonsmoker How long has it been since you last smoked? Grea ter than 10 years AUDIT-C (Standard) Question Answer Notes Did you have a drink contain ing alcohol in the past year? Yes How often did you have six o r more drinks on one occasion in the past year? Never (0 point) How many drinks did you have on a typical day when you were drinking in the past year? 1 or 2 drinks (0 point) How often did you have a dri nk containing alcohol in the past year? 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, predominantly inattentive type (F90.0) 03/01/20 24 Active confirmed Problem Long-term current use of drug therapy (660772444) Other correction (current) drug therapy (Z79.899) 03/01/20 Active confirmed Problem 290026658 Chronic posttraumatic stress disorder (F43.12) Active confirmed Vital Signs Heart Rate 66 /min 11/22/2024 Respiratory Rate 18 /min 04/05/2024 Blood pressure diastolic 90 mm Hg 11/22/2024 Height-cm 160.02 cm 11/22/2024 Weight-kg 71.21 kg 11/22/2024 Height 63.00 in 11/22/2024 Blood pressure systolic 142 mm Hg 11/22/2024 Weight 157 lbs 11/22/2024 BMI 27.81 kg/m2 11/22/2024 Encounters Encounter Location Date Provider Diagnosis [facility] [place] [id number] [facility] [address] [address] 03/28/2024 Cami Robin Mild recurrent major depression F33.0 ; Generalized anxiety disorder F41.1 ; Chronic posttraumatic stress disorder F43.12 and Attention deficit hyperactivity disorder (ADHD), unspecified ADHD type F90.9 [facility] [place] [id number] [facility] [address] [address] 12/22/2023 Cami Robin Major depressive disorder, recurrent, mild F33.0 ; Generalized anxiety disorder F41.1 ; Post-traumatic stress disorder, chronic F43.12 and Attention-deficit hyperactivity disorder, predominantly inattentive type F90.0 [facility] [place] [id number] [facility] [address] [address] 01/05/2024 Darlene Hill Primary insomnia F51.01 ; Major depressive disorder, recurrent, mild F33.0 ; Post-traumatic stress disorder, chronic F43.12 ; Attention-deficit hyperactivity disorder, predominantly inattentive type F90.0 ; Other exterminator (current) drug therapy Z79.899 and Generalized anxiety disorder F41.1 [facility] [address] [facility] [address] [address] 01/11/2024 Cami Robin Generalized anxiety disorder F41.1 ; Post-traumatic stress disorder, chronic F43.12 ; Major depressive disorder, recurrent, mild F33.0 and Attention-deficit hyperactivity disorder, predominantly inattentive type F90.0 [facility] [address] [facility] [address] [place] [address] 01/21/2024 Cami Robin Major depressive disorder, recurrent, mild F33.0 ; Attention-deficit hyperactivity disorder, predominantly inattentive type F90.0 ; Generalized anxiety disorder F41.1 and Post-traumatic stress disorder, chronic F43.12 [facility] [address] [facility] [address] [place] [address] 02/15/2024 Cami Lobito Post-traumatic stres s disorder, chronic F43.12 ; Generalized anxiety disorder F41.1 ; Attention-deficit hyperactivity disorder, predominantly inattentive type F90.0 and Major depressive disorder, recurrent, mild F33.0 [place] [address] [facility] [address] [place] [address] 02/29/2024 Camibrea Robin Generalized anxiety disorder F41.1 ; Major depressive disorder, recurrent, mild F33.0 and Post-traumatic stress disorder, chronic F43.12 [facility] [address] [address] 03/01/2024 Darlene Hill Post-traumatic stres s disorder, chronic F43.12 ; Primary insomnia F51.01 ; Attention-deficit hyperactivity disorder, predominantly inattentive type F90.0 ; Generalized anxiety disorder F41.1 ; Other correction (current) drug therapy Z79.899 and Major depressive disorder, recurrent, mild F33.0 [place] [address] [facility] [address] [place] [address] 04/04/2024 Cami Lobito Mild recurrent major depression F33.0 ; Generalized anxiety disorder F41.1 ; Chronic posttraumatic stress disorder F43.12 and Attention deficit hyperactivity disorder (ADHD), unspecified ADHD type F90.9 [place] [address] [facility] [address] [place] [address] 04/05/2024 Darlene Therda Major depressive disorder, recurrent, mild F33.0 ; Generalized anxiety disorder F41.1 ; Primary insomnia F51.01 ; Post-traumatic stress disorder, chronic F43.12 ; Attention-deficit hyperactivity disorder, predominantly inattentive type F90.0 and Other correction (current) drug therapy Z79.899 [facility] [address] [facility] [address] [place] [address] 04/18/2024 Cami Lobito Major depressive disorder, recurrent, mild F33.0 ; Generalized anxiety disorder F41.1 ; Chronic posttraumatic stress disorder F43.12 and Attention deficit hyperactivity disorder (ADHD), unspecified ADHD type F90.9 [facility] [address] [place] [address] 06/09/2024 Cami Lobito Major depressive disorder, recurrent, mild F33.0 ; Generalized anxiety disorder F41.1 ; Chronic posttraumatic stress disorder F43.12 and Attention deficit hyperactivity disorder (ADHD), unspecified ADHD type F90.9 [facility] [address] [facility] [address] [place] [address] 07/04/2024 Cami Lobito Major depressive disorder, recurrent, mild F33.0 ; Generalized anxiety disorder F41.1 ; Chronic posttraumatic stress disorder F43.12 and Attention deficit hyperactivity disorder (ADHD), unspecified ADHD type F90.9 [facility] [address] [facility] [address] [place] [address] 07/07/2024 Darlene Hill Generalized anxiety disorder F41.1 ; MDD (major depressive disorder), severe F32.2 ; Primary insomnia F51.01 ; Post-traumatic stress disorder, chronic F43.12 ; Attention-deficit hyperactivity disorder, predominantly inattentive type F90.0 and Other correction (current) drug therapy Z79.899 [facility] [address] [place] [address] 07/19/2024 Cami Lobito Major depressive disorder, recurrent, mild F33.0 ; Generalized anxiety disorder F41.1 ; Chronic posttraumatic stress disorder F43.12 and Attention deficit hyperactivity disorder (ADHD), unspecified ADHD type F90.9 [facility] [address] [place] [address] 07/28/2024 Cami Lobito Major depressive disorder, recurrent, mild F33.0 ; Generalized anxiety disorder F41.1 ; Chronic posttraumatic stress disorder F43.12 and Attention deficit hyperactivity disorder (ADHD), unspecified ADHD type F90.9 [facility] [address] [facility] [address] [place] [address] 07/29/2024 Darlene Hill Generalized anxiety disorder F41.1 ; MDD (major depressive disorder), severe F32.2 ; Primary insomnia F51.01 ; Post-traumatic stress disorder, chronic F43.12 ; Attention-deficit hyperactivity disorder, predominantly inattentive type F90.0 and Other correction (current) drug therapy Z79.899 [facility] [address] [facility] [address] [place] [address] 08/12/2024 Cami Lobito Generalized anxiety disorder F41.1 ; MDD (major depressive disorder), severe F32.2 ; Chronic posttraumatic stress disorder F43.12 and Attention deficit hyperactivity disorder (ADHD), unspecified ADHD type F90.9 [facility] [address] [address] 08/29/2024 Cami Lobito Major depressive disorder, recurrent, mild F33.0 ; Generalized anxiety disorder F41.1 ; Chronic posttraumatic stress disorder F43.12 and Attention deficit hyperactivity disorder (ADHD), unspecified ADHD type F90.9 [facility] [address] [address] 09/13/2024 Cami Lobito MDD (major depressiv e disorder), severe F32.2 ; Generalized anxiety disorder F41.1 ; Chronic posttraumatic stress disorder F43.12 and Attention deficit hyperactivity disorder (ADHD), unspecified ADHD type F90.9 [facility] [address] [address] 09/27/2024 Cami Lobito Major depressive disorder, recurrent, mild F33.0 ; Generalized anxiety disorder F41.1 ; Chronic posttraumatic stress disorder F43.12 and Attention-deficit hyperactivity disorder, predominantly inattentive type F90.0 [facility] [address] [place] [address] 10/11/2024 Cami Lobito Major depressive disorder, recurrent, mild F33.0 ; Generalized anxiety disorder F41.1 ; Chronic posttraumatic stress disorder F43.12 and Attention-deficit hyperactivity disorder, predominantly inattentive type F90.0 [facility] [address] [facility] [address] [facility] [address] [place] [address] 10/25/2024 Camibrea Robin Major depressive disorder, recurrent, mild F33.0 ; Generalized anxiety disorder F41.1 ; Chronic posttraumatic stress disorder F43.12 and Attention-deficit hyperactivity disorder, predominantly inattentive type F90.0 [place] [address] [facility] [address] [facility] [address] [place] [address] 11/08/2024 Cami Lobito Major depressive disorder, recurrent, mild F33.0 ; Generalized anxiety disorder F41.1 ; Chronic posttraumatic stress disorder F43.12 and Attention-deficit hyperactivity disorder, predominantly inattentive type F90.[address] [address] 11/22/2024 Darlene Hill Post-traumatic stres s disorder, chronic F43.12 ; MDD (major depressive disorder), recurrent episode, moderate F33.1 ; Generalized anxiety disorder F41.1 ; Primary insomnia F51.01 ; Attention-deficit hyperactivity disorder, predominantly inattentive type F90.0 and Other exterminator (current) drug therapy Z79.899 [place] [address] [facility] [address] [address] 12/06/2024 Camibrea Robin Major depressive disorder, recurrent, mild F33.0 ; Generalized anxiety disorder F41.1 ; Chronic posttraumatic stress disorder F43.12 and Attention-deficit hyperactivity disorder, predominantly inattentive type F90.[address] [address] 02/27/2024 Provider Migration [place] [address] [facility] [address] [address] 02/28/2024 Provider Migration [address] [address] 07/25/2024 Darlene Therda Post-traumatic stres s disorder, chronic F43.12 [place] [address] [facility] [address] [address] 10/24/2024 Darlene Therda Post-traumatic stres s disorder, chronic F43.12 Assessments Encounter Date Diagnosis (ICD Code) Assessment Notes Treatment Notes Treatment Clinical Notes Section Notes 07/25/2024 Post-traumatic stress disorder, chronic (ICD-10 - F43.12) 10/24/2024 Post-traumatic stress disorder, chronic (ICD-10 - F43.12) 10/25/2024 Major depressive disorder, recurrent, mild (ICD-10 - F33.0) 10/25/2024 Generalized anxiety disorder (ICD-10 - F41.1) 10/11/2024 Major depressive disorder, recurrent, mild (ICD-10 - F33.0) 11/08/2024 Major depressive disorder, recurrent, mild (ICD-10 - F33.0) 07/29/2024 Generalized anxiety disorder (ICD-10 - F41.1) Generalized Anxiety Disorder: Care Instructions material was published, Learning About Generalized Anxiety Disorder material was published, Learning About Anxiety Disorders material was published, Learning About Generalized Anxiety Disorder material was published, Generalized Anxiety Disorder: Care Instructions material was published, Learning About Anxiety Disorders material was published 1. major depressive episodes, - Depression Wellbutrin XL 300 mg daily Prozac 60 [...] effects including loss of libido, increased suicidal thoughts/behav iors in children and young adults, and serotonin syndrome Medication Management and Follow-Up- Plan:- Schedule follow-up appointments every 2-3 months to monitor the patient's response to the medication regimen.- Reinforce the importance of avoiding recreational drug use due to potential neurotoxicity and interactions with prescribed medications. 3. Primary insomnia -Trazodone 100 mg at night r/t insomnia 4. Chronic post-traumatic stress disorder -therapy prazosin 1 mg at bedtime monitor B/P patient educated on rx 5. Attention deficit hyperactivity disorder -monitor no rx 6. Long-term drug therapy conitnue therapy no refills needed today 08/12/2024 Generalized anxiety disorder (ICD-10 - F41.1) 08/12/2024 MDD (major depressive disorder), severe (ICD-10 - F32.2) 08/29/2024 Major depressive disorder, recurrent, mild (ICD-10 - F33.0) 09/13/2024 MDD (major depressive disorder), severe (ICD-10 - F32.2) 09/27/2024 Major depressive disorder, recurrent, mild (ICD-10 - F33.0) 09/27/2024 Generalized anxiety disorder (ICD-10 - F41.1) 07/28/2024 Major depressive disorder, recurrent, mild (ICD-10 - F33.0) 07/07/2024 MDD (major depressive disorder), severe (ICD-10 - F32.2) Depression Treatment: Care Instructions material was published, Learning About Depression material was published, Learning About Depression Screening material was published, Deciding About Stopping Your Antidepressant material was published 1. major depressive episodes, - increase Depression increase Wellbutrin XL 300 mg daily Prozac 60 [...] patient instructions. 2. Generalized anxiety disorder - Add Vistaril 10 mg three times day PRN for increase anxiety - educated on all rx, Buspar 15 mg three times a day for anxiety and depression SSRI/SNRI side effects discussed including but not limited to, gastric upset, nausea, vomiting, diarrhea and/or constipation, weight changes, sexual side effects including loss of libido, increased suicidal thoughts/behav iors in children and young adults, and serotonin syndrome Medication Management and Follow-Up- Plan:- Schedule follow-up appointments every 2-3 months to monitor the patient's response to the medication regimen.- Reinforce the importance of avoiding recreational drug use due to potential neurotoxicity and interactions with prescribed medications. 3. Primary insomnia -Trazodone 100 mg at night r/t insomnia 4. Chronic post-traumatic stress disorder -therapy prazosin 1 mg at bedtime monitor B/P patient educated on rx 5. Attention deficit hyperactivity disorder -monitor no rx 6. Long-term drug therapy 07/19/2024 Major depressive disorder, recurrent, mild (ICD-10 - F33.0) 07/04/2024 Major depressive disorder, recurrent, mild (ICD-10 - F33.0) 07/07/2024 Generalized anxiety disorder (ICD-10 - F41.1) Generalized Anxiety Disorder: Care Instructions material was published, Learning About Generalized Anxiety Disorder material was published, Learning About Anxiety Disorders material was published, Learning About Generalized Anxiety Disorder material was published, Generalized Anxiety Disorder: Care Instructions material was published, Learning About Anxiety Disorders material was published 1. major depressive episodes, - increase Depression increase Wellbutrin XL 300 mg daily Prozac 60 [...] patient instructions. 2. Generalized anxiety disorder - Add Vistaril 10 mg three times day PRN for increase anxiety - educated on all rx, Buspar 15 mg three times a day for anxiety and depression SSRI/SNRI side effects discussed including but not limited to, gastric upset, nausea, vomiting, diarrhea and/or constipation, weight changes, sexual side effects including loss of libido, increased suicidal thoughts/behav iors in children and young adults, and serotonin syndrome Medication Management and Follow-Up- Plan:- Schedule follow-up appointments every 2-3 months to monitor the patient's response to the medication regimen.- Reinforce the importance of avoiding recreational drug use due to potential neurotoxicity and interactions with prescribed medications. 3. Primary insomnia -Trazodone 100 mg at night r/t insomnia 4. Chronic post-traumatic stress disorder -therapy prazosin 1 mg at bedtime monitor B/P patient educated on rx 5. Attention deficit hyperactivity disorder -monitor no rx 6. Long-term drug therapy 03/28/2024 Mild recurrent major depression (ICD-10 - F33.0) 04/04/2024 Mild recurrent major depression (ICD-10 - F33.0) 04/05/2024 Major depressive disorder, recurrent, mild (ICD-10 - F33.0) Preventing Depression From Coming Back: Care Instructions material was published, Learning About How to Get Help During a Mental Health Crisis material was published, Learning About Depression Screening material was published, Learning About Depression material was published 1. major depressive episodes, mild - Wellbutrin XL 150 mg daily Prozac 60 mg daily hx daughter situation and accident Prescription Monitoring Report reviewed educated on all medications, benefits, side effects and risk, and educated on depression, anxiety, and ADHD, mood d/o and educated on compliance of medications, metabolic and movement d/o education appointment's, continue therapy discussion with patient about course of treatmentand patient instructions. forms to be completed - mental health tx report F33.0: Major depressive disorder, recurrent, mild stable bupropion HCl XL 150 mg 24 hr tablet, extended release - TAKE 1 TABLET DAILY IN THE MORNING Qty: (90) tablet Refills: 0 Pharmacy: Need Fixed HOME DELIVERY fluoxetine 20 mg capsule - Take 1 capsule(s) every day by oral route in the morning for 90 days. Qty: (90) capsule Refills: 0 Pharmacy: Need Fixed HOME DELIVERY Note to Pharmacy: total 60 mg daily fluoxetine 40 mg capsule - TAKE 1 CAPSULE BY MOUTH EVERY DAY IN THE MORNING Qty: (90) capsule Refills: 0 Pharmacy: Need Fixed HOME DELIVERY 2. Generalized anxiety disorder - Buspar 15 mg three times a day for anxiety and depression SSRI/SNRI side effects discussed including but not limited to, gastric upset, nausea, vomiting, diarrhea and/or constipation, weight changes, sexual side effects including loss of libido, increased suicidal thoughts/behav iors in children and young adults, and serotonin syndrome Medication Management and Follow-Up- Plan:- Schedule follow-up appointments every 2-3 months to monitor the patient's response to the medication regimen.- Reinforce the importance of avoiding recreational drug use due to potential neurotoxicity and interactions with prescribed medications. F41.1: Generalized anxiety disorder stable buspirone 15 mg tablet - Take 1 tablet(s) 3 times a day by oral route with meals for 90 days. Qty: (270) tablet Refills: 0 Pharmacy: Need Fixed HOME DELIVERY Note to Pharmacy: d/c BID dose 3. Primary insomnia -Trazodone 100 mg at night r/t insomnia F51.01: Primary insomnia trazodone 100 mg tablet - TAKE 1 TABLET DAILY AT BEDTIME Qty: (90) tablet Refills: 0 Pharmacy: Need Fixed HOME DELIVERY 4. Chronic post-traumatic stress disorder -therapy prazosin 1 mg at bedtime monitor B/P patient educated on rx F43.12: Post-traumatic stress disorder, chronic prazosin 1 mg capsule - Take 1 capsule(s) every day by oral route at bedtime for 90 days. Qty: (90) capsule Refills: 0 Pharmacy: Need Fixed HOME DELIVERY 5. Attention deficit hyperactivity disorder -monitor F90.0: Attention-defi cit hyperactivity disorder, predominantly inattentive type no rx 6. Long-term drug [id number] : Other correction (current) drug therapy 04/05/2024 Generalized anxiety disorder (ICD-10 - F41.1) Generalized Anxiety Disorder: Care Instructions material was published, Learning About Generalized Anxiety Disorder material was published, Learning About Anxiety Disorders material was published 1. major depressive episodes, mild - Wellbutrin XL 150 mg daily Prozac 60 mg daily hx daughter situation and accident Prescription Monitoring Report reviewed educated on all medications, benefits, side effects and risk, and educated on depression, anxiety, and ADHD, mood d/o and educated on compliance of medications, metabolic and movement d/o education appointment's, continue therapy discussion with patient about course of treatmentand patient instructions. forms to be completed - mental health tx report F33.0: Major depressive disorder, recurrent, mild stable bupropion HCl XL 150 mg 24 hr tablet, extended release - TAKE 1 TABLET DAILY IN THE MORNING Qty: (90) tablet Refills: 0 Pharmacy: Need Fixed HOME DELIVERY fluoxetine 20 mg capsule - Take 1 capsule(s) every day by oral route in the morning for 90 days. Qty: (90) capsule Refills: 0 Pharmacy: [facility] Note to Pharmacy: total 60 mg daily fluoxetine 40 mg capsule - TAKE 1 CAPSULE BY MOUTH EVERY DAY IN THE MORNING Qty: (90) capsule Refills: 0 Pharmacy: [facility] 2. Generalized anxiety disorder - Buspar 15 mg three times a day for anxiety and depression SSRI/SNRI side effects discussed including but not limited to, gastric upset, nausea, vomiting, diarrhea and/or constipation, weight changes, sexual side effects including loss of libido, increased suicidal thoughts/behav iors in children and young adults, and serotonin syndrome Medication Management and Follow-Up- Plan:- Schedule follow-up appointments every 2-3 months to monitor the patient's response to the medication regimen.- Reinforce the importance of avoiding recreational drug use due to potential neurotoxicity and interactions with prescribed medications. F41.1: Generalized anxiety disorder stable buspirone 15 mg tablet - Take 1 tablet(s) 3 times a day by oral route with meals for 90 days. Qty: (270) tablet Refills: 0 [facility]acy: [facility] Note to Pharmacy: d/c BID dose 3. Primary insomnia -Trazodone 100 mg at night r/t insomnia F51.01: Primary insomnia trazodone 100 mg tablet - TAKE 1 TABLET DAILY AT BEDTIME Qty: (90) tablet Refills: 0 [facility]acy: [facility] 4. Chronic post-traumatic stress disorder -therapy prazosin 1 mg at bedtime monitor B/P patient educated on rx F43.12: Post-traumatic stress disorder, chronic prazosin 1 mg capsule - Take 1 capsule(s) every day by oral route at bedtime for 90 days. Qty: (90) capsule Refills: 0 Pharmacy: [facility] 5. Attention deficit hyperactivity disorder -monitor F90.0: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
[2024-12-17 12:46] VITALS: BP 134/72; PULSE 88; RESP 18; TEMP 36.6; O2SAT 98
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
== END 2024-12-17 14:24 | disposition home or self-care (01) ==
PROVIDERS: Emergency Provider Nurse Practitioner Family; PCP Internal Medicine
DX: M54.50 Low back pain, unspecified (principal); M25.551 Pain in right hip; Z87.891 Personal history of nicotine dependence; I10 Essential (primary) hypertension; E78.5 Hyperlipidemia, unspecified; Z86.718 Personal history of other venous thrombosis and embolism; F41.9 Anxiety disorder, unspecified; F32.A Depression, unspecified
CPT/HCPCS: 72100; 73502; 99214; G0463

== ENCOUNTER 2025-02-15 13:32 | Outpatient (CLI) | payer OTHER, SELFPAY ==
--- NOTE | ~2025-02-15 | MM_ITS ---
EXAMINATION: MM screening leonidas BI w zara HISTORY: Screening TECHNIQUE: Craniocaudal and mediolateral oblique 3-D tomosynthesis images were obtained and synthetic 2-D images were generated. CAD analysis was submitted and interpreted. COMPARISON: Comparison to multiple prior studies sequentially, with oldest reviewed study dated 01/2020. BREAST PARENCHYMAL COMPOSITION: Not dense: There are scattered areas of fibroglandular density. FINDINGS: There is no evidence of suspicious mass, calcification, or architectural distortion to sugg est malignancy in either breast. There has been no suspicious interval change. IMPRESSION: 1. No mammographic evidence of malignancy. 2. Recommend routine screening mammography in one year. BI-RADS Category 1: Negative Reviewed, dictated and finalized at location A.
== END 2025-02-15 13:33 | disposition home or self-care (01) ==
PROVIDERS: PCP Internal Medicine; Visit Provider Internal Medicine
DX: Z12.31 Encounter for screening mammogram for malignant neoplasm of breast (principal)
CPT/HCPCS: 77063; 77067

== ENCOUNTER 2025-04-19 13:18 | Outpatient (CLI) | payer OTHER, SELFPAY ==
--- NOTE | ~2025-04-19 | DEXA_ITS ---
Bone Density Report Name: PEDRITO GOMEZ Age: 49 Sex: Female Ethnicity: White Date of : 1975 Indication: postmenopausal; screening for osteoporosis; prior fracture; secondary osteoporosis; Referring Provider: KARENRACHEL Study: Bone densitometry was performed. Exam Date: April 19, 2025 Accession number: [id number] Bone Density: Region BMD T-score Z-score Classification AP Spine(L1-L4) 1.085 0.3 1.2 Normal Femoral Neck (Left) 0.947 0.9 1.7 Normal Total Hip (Left) 1.138 1.6 2.1 Normal Femoral Neck (Right) 0.928 0.7 1.5 Normal Total Hip (Right) 1.241 2.4 3.0 Normal Total Hip Mean 1.189 2.0 2.6 Normal World Health Organization criteria for BMD impression classify patients as: Normal (T-score at or above -1.0), Osteopenia (T-score between -1.0 and -2.5), or Osteoporosis (T-score at or below -2.5). 10-year Fracture Risk: FRAX not reported because: All T-scores for Spine Total, Hip Total, Femoral Neck at or above -1.0 Clinical Information Provided by Patient: Has had a low trauma fracture Has secondary osteoporosis Has used the following medications: Calcium Patient maximum height was 64 Menopause Age: 49 No regular weight bearing exercise Drinks caffeinated beverages Onset of menses at age 14 Number of children 1 Impression: The patient has normal bone mass. The patient has risk factors, including: previous fracture. Discussion: BONE DENSITY IS ABOVE THE MINIMUM DESIRABLE LEVEL AT ALL SKELETAL SITES TESTED. This patient?s bone mineral density is above the minimum desirable level (T-score -1.0 or better) at all sites measured. The patient should follow a healthful lifestyle (good nutrition with adequate calcium and vitamin D, and appropriate weight-bearing exercise). Follow-Up: Consider repeating this study in 5 years or sooner if there is some new clinical indication. Reported by: ANISHA on 04/19/2025 2:12:00 PM. Reviewed, dictated and finalized at location A.
--- OUTSIDE RECORDS SUMMARY | 2025-04-19 13:40 | XMS_ITS | Data Portability ---
Author Organization [place] - [facility] Where Was it Filmed, Main Office Address [address] [place] [address] Care Team Providers Care Executive Compensation Analyst Name Role Phone SOLANGE SANDOVAL Primary Care Provider [phone] SOLANGE SANDOVAL Referring Provider [phone] AB JIMENEZ Psychiatrist VERENA BERMEO [employer] Assessment Encounter Date Assessment Date Assessment LastModified by Organization Details LastModified Time 03/31/2024 03/31/2024 Assessment: SILVER PLMD Hypoventilation Plan: [...] 03/30/2024: Chol 218, LDL 117 BUN 21 [email or web address] Not available 08/24/2024 17:48:23 12/21/2024 12/21/2024 12/21/2023: Chol 208, LDL 114 VIT D 25L 03/30/2024: Chol 218, LDL 117 BUN 21 08/24/2024: TP 6.0 [email or web address] Not available 12/21/2024 17:21:06 01/03/2025 01/03/2025 Time spent with patient included: preparing to see patient by reviewing tests, obtaining and reviewing history, medical examination and evaluation, counseling and educating the patient, ordering medications and tests, documenting clinical information in EHR, independently interpreting results and communicating results to the patient for a total of 42 minutes. [email or web address] Not available 01/03/2025 15:22:21 Plan of Treatment Reminders Order Date Submit Date Provider Last Modified By Organization Details Last Modified Time Details Appointments Follow Up 15 2024 10:45A Ruthy morris MD Not available Not available Not available Lab lipid panel, serum [address] (Lab), [address] [place], [address], 12/22/2024 11:55:25 CBC w/ auto diff [address] (Lab), [address] [place], [address], 12/22/2024 11:55:26 TSH, serum or plasma [address] (Lab), [address] [place], [address], 12/22/2024 11:55:26 CMP, serum or plasma [address] (Lab), [address] [place], [address], 12/22/2024 11:55:26 vitamin D, 25-hydrox y, total, serum 2024 025 [employer] [facility], [address], [address], 12/21/2024 17:24:45 vitamin D, 25-hydrox y, total, serum 2024 025 [facility] (Lab), [address] [place], [address], 12/22/2024 11:55:25 folate, serum 2024 025 [employer] [facility], [address], [address], 12/21/2024 17:24:46 vitamin B12, serum 2024 025 [employer] [facility], [address], [address], 12/21/2024 17:24:45 lipid panel, serum [address] (Lab), [address] [place], [address], 02/21/2025 17:03:19 CBC w/ auto diff [address] (Lab), [address] [place], [address], 02/21/2025 17:03:19 TSH, serum or plasma [address] (Lab), [address] [place], [address], 02/21/2025 17:03:19 CMP, serum or plasma [address] (Lab), [address] [place], [address], 02/21/2025 17:03:20 vitamin D, 25-hydrox y, total, serum 2023 024 [place] [address] [email or web address] [facility], [address], [address], 02/21/2025 17:03:20 vitamin D, 25-hydrox y, total, serum [address] (Lab), [address] [place], [address], 02/21/2025 17:03:19 folate, serum 2023 [address]24 [place] [address] [email or web address] [facility], [address], [address], 02/21/2025 17:03:20 vitamin B12, serum 2023 024 [place] [address] [employer] [facility], [facility] [address], [address], 02/21/2025 17:03:20 Referral gynecolog ist referral - Please call patient to schedule an appointme nt. Thank you. 2024 025 jessie Munson MD, [address], [address], [place], [address], 03/29/2025 08:44:07 orthopedi c surgeon referral - Please call patient to schedule an appointme nt. Thank you. 2024 025 jessie Davis, [address], [address], [place], [address], 03/29/2025 08:44:08 pulmonolo gist referral - Please call patient to schedule an appointme nt. Thank you. 2024 025 jessie Bermeo MD, [address] [place], [address], 03/29/2025 08:43:59 gynecolog ist referral - Please call patient to schedule. 2023 024 jessie Munson MD, [address], [address], [place], [address], 12/01/2024 10:19:37 pulmonolo gist referral 2023 024 Verena Bermeo MD, [address] [place], [address], 08/29/2024 08:44:43 Procedures colonosco py screening (PROC) - Please call patient to schedule an appointme nt Thank you. 2024 025 [email or web address] [facility], [address], [address], [place], [address], 03/29/2025 08:57:41 colonosco py screening (PROC) - Please call patient to schedule. 2023 024 [email or web address] [facility], [address], [address], [place], [address], 12/15/2024 10:21:52 Surgeries None recorded. Imaging polysomno gram, diagnosti c, 6 yrs or older 2024 025 [email or web address] [facility] [address] [facility], [place], [address], 01/16/2025 09:40:58 MAMMO, screening , digital, bilateral - Please call patient to schedule. 2024 025 [email or web address] [facility] (Central Scheduling), [address] [place], [address], 01/26/2025 11:54:59 DEXA, axial skeleton - Please call patient to schedule. [address], [address], [address], [place], [address], 12/21/2024 17:42:41 MAMMO, screening , digital, bilateral [address] , [place], [address], 08/25/2024 13:32:50 DEXA, axial skeleton - Please call patient to schedule. [address], [address], [address], [place], [address], 10/10/2024 15:48:57 XR, hip + pelvis, unilatera l 2023 024 ERLINDA [facility] [place], [address], [place], [address], 04/13/2024 14:43:50 polysomno gram, diagnosti c, 6 yrs or older - Auth #[id number] 58 Mar 31, 2024 - Jun 29, [address]24[address] [facility], [address] [place], [address], 07/06/2024 12:23:37 Medication Orders None recorded. Patient TargetsNo targets recorded. Patient InstructionsNo instructions recorded. Reason for Referral Sod Cutter Referral for Gy necologic examination Please call patient to schedule. Referring Physician: Solange Sandoval, Internal Medicine, Encounter Date: 08/24/2024 Jet [employer]ade [employer]isher Referral for O bstructive sleep apnea syndrome Referring Physician: Solange Sandoval, Internal Medicine, Encounter Date: 08/24/2024 Sod Cutter Referral for Gy necologic examination Please call patient to schedule an appointment. Thank you. Referring Physician: Solange Sandoval, Internal Medicine, Encounter Date: 12/21/2024 Jet Blade Polisher Referral for O bstructive sleep apnea syndrome Please call patient to schedule an appointment. Thank you. Referring Physician: Solange Sandoval, Internal Medicine, Encounter Date: 12/21/2024 Orthopedic Surgeon Referral for Pain of right hip joint Please call patient to schedule an appointment. Thank you. Referring Physician: Solange Sandoval, Internal Medicine, Encounter Date: 12/21/2024 Results Created Date Observation Date Name Description Value Unit Range Abnormal Flag Note LastModifiedBy Organization Detail LastModifiedTime 03/30/20 24 03/31/2024 CBC/C OMPLE TE BLD COUNT W/DIF F white blood cells 4.2 x10'3 /uL 4.2-10 .8 Not Available [facility] (Lab) [address] [place], [address], 03/31/2024 11:11:24 03/30/20 24 03/31/2024 CBC/C OMPLE TE BLD COUNT W/DIF F red blood cells 4.05 x10'6 /uL 3.80-5 .20 Not Available [facility] (Lab) [address] [place], [address], 03/31/2024 11:11:24 03/30/20 24 03/31/2024 CBC/C OMPLE TE BLD COUNT W/DIF F hemoglobin 13.0 g/dL 12.0-1 5.6 Not Available [facility] (Lab) [address] [place], [address], 03/31/2024 11:11:24 03/30/20 24 03/31/2024 CBC/C OMPLE TE BLD COUNT W/DIF F hematocrit 38.3 % 35.7-4 5.7 Not Available [facility] (Lab) [address] [place], [address], 03/31/2024 11:11:24 03/30/20 24 03/31/2024 CBC/C OMPLE TE BLD COUNT W/DIF F mean red cell volume 94.6 fL 82.0-9 9.0 Not Available [facility] (Lab) [address] [place], [address], 03/31/2024 11:11:24 03/30/20 24 03/31/2024 CBC/C OMPLE TE BLD COUNT W/DIF F mean red cell hemoglobin 32.1 pg 27.0-3 3.0 Not Available [facility] (Lab) [address] [place], [address], 03/31/2024 11:11:24 03/30/20 24 03/31/2024 CBC/C OMPLE TE BLD COUNT W/DIF F mean RBC HGB concentratio n 33.9 g/dL 31.0-3 6.0 Not Available [facility] (Lab) [address] [place], [address], 03/31/2024 11:11:24 03/30/20 24 03/31/2024 CBC/C OMPLE TE BLD COUNT W/DIF F red cell distribution width 12.9 % 11.8-1 5.5 Not Available [facility] (Lab) [address] [place], [address], 03/31/2024 11:11:24 03/30/20 24 03/31/2024 CBC/C OMPLE TE BLD COUNT W/DIF F platelets 291 x10'3 /uL 150-40 0 Not Available [facility] (Lab) [address] [place], [address], 03/31/2024 11:11:24 03/30/20 24 03/31/2024 CBC/C OMPLE TE BLD COUNT W/DIF F mean platelet volume 10.1 fL 9.0-12 .4 Not Available [facility] (Lab) [address] [place], [address], 03/31/2024 11:11:24 03/30/20 24 03/31/2024 CBC/C OMPLE TE BLD COUNT W/DIF F neutrophils 56.2 % 39.0-7 2.0 Not Available [facility] (Lab) [address] [place], [address], 03/31/2024 11:11:24 03/30/20 24 03/31/2024 CBC/C OMPLE TE BLD COUNT W/DIF F lymphocytes 34.8 % 16.0-4 7.0 Not Available [facility] (Lab) [address] [place], [address], 03/31/2024 11:11:24 03/30/20 24 03/31/2024 CBC/C OMPLE TE BLD COUNT W/DIF F monocytes 7.1 % 5.0-12 .0 Not Available [facility] (Lab) [address] [place], [address], 03/31/2024 11:11:24 03/30/20 24 03/31/2024 CBC/C OMPLE TE BLD COUNT W/DIF F eosinophils 1.2 % 1.0-7. 0 Not Available [facility] (Lab) [address] [place], [address], 03/31/2024 11:11:24 03/30/20 24 03/31/2024 CBC/C OMPLE TE BLD COUNT W/DIF F basophils 0.5 % 0.0-2. 0 Not Available [facility] (Lab) [address] [place], [address], 03/31/2024 11:11:24 03/30/20 24 03/31/2024 CBC/C OMPLE TE BLD COUNT W/DIF F immature granulocytes 0.2 % 0.00-0 .50 Not Available [facility] (Lab) [address] [place], [address], 03/31/2024 11:11:24 03/30/20 24 03/31/2024 CBC/C OMPLE TE BLD COUNT W/DIF F lymphocytes, absolute count 2.36 x10'3 /uL 1.07-3 .43 Not Available [facility] (Lab) [address] [place], [address], 03/31/2024 11:11:24 03/30/20 24 03/31/2024 CBC/C OMPLE TE BLD COUNT W/DIF F immature granulocytes ,absolute 0.01 x10'3 /uL 0.00-0 .05 Not Available [facility] (Lab) [address] [place], [address], 03/31/2024 11:11:24 03/30/20 24 03/31/2024 CBC/C OMPLE TE BLD COUNT W/DIF F nucleated red blood cells 0.0 % -0 Not Available [facility] (Lab) [address] [place], [address], 03/31/2024 11:11:24 03/30/20 24 03/31/2024 CBC/C OMPLE TE BLD COUNT W/DIF F NRBC# 0.00 x10'3 /uL Not Available [facility] (Lab) [address] [place], [address], 03/31/2024 11:11:24 03/30/20 24 03/31/2024 COMPR EHENS KRISTEN METAB OLIC PANEL sodium 138 mmol/ L 137-14 5 Not Available [facility] (Lab) [address] [place], [address], 03/31/2024 11:13:15 03/30/20 24 03/31/2024 COMPR EHENS KRISTEN METAB OLIC PANEL potassium 4.4 mmol/ L 3.5-5. 1 Not Available [facility] (Lab) [address] [place], [address], 03/31/2024 11:13:15 03/30/20 24 03/31/2024 COMPR EHENS KRISTEN METAB OLIC PANEL chloride 108 mmol/ L 98-107 high Not Available [facility] (Lab) [address] [place], [address], 03/31/2024 11:13:15 03/30/20 24 03/31/2024 COMPR EHENS KRISTEN METAB OLIC PANEL carbon dioxide 26 mmol/ L 22-30 Not Available [facility] (Lab) [address] [place], [address], 03/31/2024 11:13:15 03/30/20 24 03/31/2024 COMPR EHENS KRISTEN METAB OLIC PANEL anion gap 8.4 mmol/ L 14-22 low Not Available [facility] (Lab) [address] [place], [address], 03/31/2024 11:13:15 03/30/20 24 03/31/2024 COMPR EHENS KRISTEN METAB OLIC PANEL glucose 93 mg/dL 70-99 Not Available [facility] (Lab) [address] [place], [address], 03/31/2024 11:13:15 03/30/20 24 03/31/2024 COMPR EHENS KRISTEN METAB OLIC PANEL BUN 21 mg/dL 8-19 high Not Available [facility] (Lab) [address] [place], [address], 03/31/2024 11:13:15 03/30/20 24 03/31/2024 COMPR EHENS KRISTEN METAB OLIC PANEL creatinine 0.84 mg/dL 0.66-1 .25 Not Available [facility] (Lab) [address] [place], [address], 03/31/2024 11:13:15 03/30/20 24 03/31/2024 COMPR EHENS KRISTEN METAB OLIC PANEL GFR >60 Refer ence Range : [place] GFR Healt hy Adult : >60 mL/mi n/1.7 3 m2 Chron ic Kidne y Disea se: 15-60 mL/mi n/1.7 3 m2 Kidne y Failu re: <15/m L/min /1.73 m2 www.n [facility]. [facility].g ov The MDRD study equat ion has not been valid ated in child simone <18 years of age; pregn ant women ; the elder ly >85 years of age; or in some racia l or ethni c subgr oups, such as Hispa nics. Outsi de the valid ated gale [...] calcu lator is avail able on the [facility] websi te: https ://mejia nagy.stacie cline/moose jasmineal s/lucyo qi/gf r_cal culat or Not Available [facility] (Lab) [address] [place], [address], 03/31/2024 11:13:15 03/30/20 24 03/31/2024 COMPR EHENS KRISTEN METAB OLIC PANEL alkaline phosphatase 55 U/L 38-126 Not Available [facility] (Lab) [address] [place], [address], 03/31/2024 11:13:15 03/30/20 24 03/31/2024 COMPR EHENS KRISTEN METAB OLIC PANEL alanine aminotransfe rase 16 U/L 0-35 Not Available [facility] (Lab) [address] [place], [address], 03/31/2024 11:13:15 03/30/20 24 03/31/2024 COMPR EHENS KRISTEN METAB OLIC PANEL aspartate aminotransfe rase 22 U/L 15-37 Not Available [facility] (Lab) [address] [place], [address], 03/31/2024 11:13:15 03/30/20 24 03/31/2024 COMPR EHENS KRISTEN METAB OLIC PANEL bilirubin, total 0.60 mg/dL 0.20-1 .30 Not Available [facility] (Lab) [address] [place], [address], 03/31/2024 11:13:15 03/30/20 24 03/31/2024 COMPR EHENS KRISTEN METAB OLIC PANEL calcium 9.6 mg/dL 8.4-10 .2 Not Available [facility] (Lab) [address] [place], [address], 03/31/2024 11:13:15 03/30/20 24 03/31/2024 COMPR EHENS KRISTEN METAB OLIC PANEL total protein 6.8 g/dL 6.3-8. 2 Not Available [facility] (Lab) [address] [place], [address], 03/31/2024 11:13:15 03/30/20 24 03/31/2024 COMPR EHENS KRISTEN METAB OLIC PANEL albumin 4.5 g/dL 3.4-5. 0 Not Available [facility] (Lab) [address] [place], [address], 03/31/2024 11:13:15 03/30/20 24 03/31/2024 COMPR EHENS KRISTEN METAB OLIC PANEL globulin 2.3 g/dL 2.6-4. 2 low Not Available [facility] (Lab) [address] [place], [address], 03/31/2024 11:13:15 03/30/20 24 03/31/2024 COMPR EHENS KRISTEN METAB OLIC PANEL A/G ratio 2.0 ratio 1.0-2. 0 Not Available [facility] (Lab) [address] [place], [address], 03/31/2024 11:13:15 03/30/20 24 03/31/2024 FOLAT E, SERUM /PLAS MA folate 7.17 NG/mL 2.76-2 0.0 Repor t lela ued with corre ct order ing provi krista. Not Available [facility] (Lab) [address] [place], [address], 03/31/2024 11:14:26 03/30/20 24 03/31/2024 VITAM IN D 25-HY DROXY [id number] 45.4 NG/mL 30-100 Repor t lela ued with corre ct order ing provi krista. Vitam in D Statu s: Defic ient: <20 ng/mL Insuf ficie nt: 20-29 ng/mL Suffi cient : 30-10 0 ng/mL Not Available [facility] (Lab) [address] [place], [address], 03/31/2024 11:15:01 03/30/20 24 03/31/2024 LIPID PANEL cholesterol 218 mg/dL 140-19 9 high NIH BRYAN NSUS RECOM MENDA TION FOR DEBBI STERO L: ADULT CHILD LOW RISK: <200 <170 BORDE RLINE : <200- 239 ----- HIGH RISK: >240 >200 Not Available [facility] (Lab) [address] [place], [address], 03/31/2024 11:15:43 03/30/20 24 03/31/2024 LIPID PANEL triglyceride s 79 mg/dL 0-150 NIH BRYAN NSUS REPOR T RECOM MENDA TION FOR TRIGL YCERI WENDI: ADULT CHILD LOW RISK: <150 ----- BODER LINE: 150-1 99 ----- HIGH RISK: >200 ----- Not Available [facility] (Lab) [address] [place], [address], 03/31/2024 11:15:43 03/30/20 24 03/31/2024 LIPID PANEL HDL cholesterol 85 mg/dL 40- Not Available [facility] (Lab) [address] [place], [address], 03/31/2024 11:15:43 03/30/20 24 03/31/2024 LIPID PANEL [...] WILL NOT BE REPOR CRISTIAN. Not Available [facility] (Lab) [address] [place], [address], 03/31/2024 11:15:43 03/30/20 24 03/31/2024 T4 FREE free T4 0.93 NG/dL 0.78-2 .19 Repor t lela ued with corre ct order ing provi krista. Not Available [facility] (Lab) [address] [place], [address], 03/31/2024 11:19:02 03/30/20 24 03/31/2024 TSH thyroid-stim ulating hormone 0.976 uIU/m L 0.465- 4.680 Repor t lela ued with corre ct order ing provi krista. Not Available [facility] (Lab) [address] [place], [address], 03/31/2024 11:20:12 04/13/20 24 XR, hip + pelvi s, unila teral No observ ation record ed. [email or web address] [facility] [place] [address], [place], [address], 04/13/2024 10:34:52 12/18/19 25 12/17/2024 imagi ng/di agnos tic resul t No observ ation record ed. [facility] [address], [place], [address], 12/17/2024 15:02:48 12/18/19 25 12/17/2024 imagi ng/di agnos tic resul t No observ ation record ed. [facility] [address], [place], [address], 12/17/2024 15:14:46 02/16/20 25 02/15/2025 MAMMO , scree madiha, digit al, bilat eral No observ ation record ed. [email or web address] [employer] [address] [facility] [address], [place], [address], 02/16/2025 14:55:07 Result Notes None recorded. Problems Name Problem SNOMED Code Status Onset Date Resolution Date Notes Provider Name and Address Organization Details Recorded Time Essential hypertensio n 79329250 Active 2023 Solange morris MD [address] [facility], [facility] [address], [place], [address], [facility] [employer] [facility] 4 16:47:13 Hyperlipide cheryl 26174552 Active 2023 Solange morris MD [address] [facility], [facility] [address], [place], [address], [employer] [facility] [employer] [facility] 4 16:47:15 Traumatic brain injury 429481449 Active 2021 BELLO Peterson, [facility] 4 16:55:50 Traumatic brain injury 367394857 Active 2021 BELLO Peterson null, [facility] 4 16:55:50 Moderate recurrent major depression 68270829 Active 2023 Solange morris MD [address], [address], [place], [address], [place] [facility] 4 17:17:04 Serum vitamin B12 below reference range 311782208 Active 2023 Solange morris MD [address], [address], [place], [address], [place] [facility] 4 17:46:28 Vitamin D deficiency 27019767 Active 2023 Solange morris MD [address], [address], [place], [address], [place] [facility] 4 17:46:49 Obesity 149482464 Active 2023 Solange morris MD [address], [address], [place], [address], [place] [facility] 4 17:47:28 Sleep apnea 58183398 Active 2023 Verena Bermeo MD [address], [address], [place], [address], [place] [facility] 4 10:11:00 Pain of right hip joint 4045567395816 02 Active 2023 BELLO Milligan null, [place] [facility] 4 10:34:40 COVID-19 977861236 Active 2023 Juliette Vizcaino MA null, [place] [facility] 4 17:35:44 Obstructive sleep apnea syndrome 46336654 Active 2023 Solange morris MD [address], [address], [place], [address], [place] [facility] 4 17:47:44 Pain in right lower limb 707623930 Active 2023 Solange morris MD [address], [address], [place], [address], [employer] [facility] [employer] [facility] 4 17:47:44 Injury of face 055880103 Active 2024 Luisa Espinoza NP [address], [facility] [address], [place], [address], [employer] [facility] [employer] [facility] 5 15:22:49 Notes:Medical History: TBI 0 04/12/22 Depression/Anxiety/PTSD Rhinitis with postnasal drip Bruxism Hypertension Hyperlipidemia Vit B12 deficiency Vit D insufficiency Procedure History: Facial reconstruction surgery 2021 Nasal septoplasty 2022 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 Procedures Surgical History Date Name Laterality Status Provider Name and Address Organization Details Recorded Time 09/02/20 24 incision and drainage completed BELLO Peterson [facility] 12/21/2024 17:00:33 04/17/20 23 reconstruction of nose completed BELLO Peterson [place] [facility] 12/16/2023 17:06:17 04/16/20 22 reconstruction of facial bones completed BELLO Peterson [facility] [employer] [facility] 12/16/2023 17:05:59 04/15/20 22 Orthopedic Surgery completed BELLO Peterson [facility] [employer] [facility] 12/16/2023 17:05:37 Abdominal Surgery completed BELLO Peterson [facility] 12/16/2023 17:06:37 reconstruction of anterior cruciate ligament of knee joint completed BELLO Peterson [place] [facility] 12/16/2023 17:07:05 Ankle Surgery completed BELLO Peterson [facility] 12/16/2023 17:07:22 Imaging Results None recorded. Procedure Notes None recorded. Medical Equipment None Reported. Allergies Allergen ID Allergen Name Allergen Category Reaction Reaction Severity Criticality Documentation Date Start Date Code Code System Note Provider Name and Address Organization Details Recorded Time 96297 codeine medicatio n rash Not available Not available 12/16/2023 2670 RxNorm BELLO Peterson [place] [facility] 16:50:29 47299 Zoloft medicatio n hives Not available Not available 12/16/2023 00567 RxNorm Jessica Fierro, BELLO null, [place] [facility] [employer] [facility] 4 16:50:39 Medications Name Sig Start Date Stop Date Status Note LastModified by Organization Details LastModified Time fluoxetine 40 mg capsule Take 1 capsule every day by oral route. active Not Available Not Available No t Available cyclobenzap rine 10 mg tablet TAKE 1 TABLET BY MOUTH THREE TIMES DAILY NEEDED FOR MUSCLE SPASM 04/13 completed Not Available Not Available Not Available atorvastati n 40 mg tablet TAKE 1 TABLET BY MOUTH ONCE DAILY 2024 active Not Available Not Available Not Avai lable methocarbam ol 500 mg tablet TAKE 1 TABLET BY MOUTH TWICE DAILY NEEDED FOR PAIN active Not Available Not Available No t [...] azithromyci n 250 mg tablet as directed 12/21 completed Not Available Not Available Not Available diltiazem CD 180 mg capsule,ext ended release 24 hr Take 1 capsule every day by oral route. 12/21 completed Not Available Not Available Not Available prazosin 1 mg capsule Take 1 capsule every day by oral route in the evening. active Not Available Not Available No t Available lisinopril 20 mg tablet Take 1 tablet every day by oral route. 2024 active Not Available Not Available Not Avai lable sulfamethox azole 800 mg-trimetho prim 160 mg tablet TAKE 2 TABLETS BY MOUTH TWICE DAILY FOR 10 DAYS 12/21 completed Not Available Not Available Not Available tramadol 50 mg tablet Take 1 tablet twice a day by oral route as needed. 04/13 completed Not Available Not Available Not Available meloxicam 7.5 mg tablet TAKE 1 TABLET BY MOUTH TWICE DAILY FOR 7 DAYS active Not Available Not Available No t Available oxycodone-a cetaminophe n 5 mg-325 mg tablet TAKE 1 TABLET BY MOUTH EVERY 4 HOURS NEEDED FOR PAIN OR ACUTE PAIN 12/21 completed Not Available Not Available Not Available [...] WHILE AWKE FOR THE NEXT 5 DAYS. 12/21 completed Not Available Not Available Not Available cephalexin 500 mg capsule TAKE ONE [...] mg capsule,ext ended release 24 hr, controlled Take 1 capsule every day by oral route for 90 days. active Not Available Not Available No t Available buspirone 15 mg tablet Take 1 [...] tablets in a dose pack USE DIRECTED 12/21 completed Not Available Not Available Not Available Vitals Date Recorded Body height Body mass index (BMI) Body weight Body temperature Heart rate Systolic And Diastolic Provider Name and Address Organization Details Last Updated DateTime 5 162.56 cm 26.8 kg/m2 96678.4 1 g 98 [degF] 84 /min 132/84 mm[Hg] BELLO Peterson [place] - [facility] 5 17:03:39 Date Recorded Body height Body mass index (BMI) Body weight Body temperature Heart rate Oxygen saturation Oxygen saturation in Arterial blood by Pulse oximetry Systolic And Diastolic Provider Name and Address Organization Details Last Updated DateTime 162.56 cm 27.3 kg/m2 95335.1 9 g 97 [degF] 85 /min 97 % 97 % 122/80 mm[Hg] Carmen Licona MA [facility] Where Was it Filmed 5 14:31:44 Date Recorded Heart rate Respiratory rate Provider N glenny and Address Organization Details Last Updated DateTime 03/31/2024 78 /min 15 /min Verena Bermeo MD [address] [facility], [facility] [address], [place], [address], [facility] Where Was it Filmed 03/31/2024 10:22:38 Date Recorded Body height Body mass index (BMI) Body weight Heart rate Oxygen saturation Oxygen saturation in Arterial blood by Pulse oximetry Body temperature Systolic And Diastolic Provider Name and Address Organization Details Last Updated DateTime 162.56 cm 26.8 kg/m2 03445.4 1 g 78 /min 98 % 98 % 97.8 [degF] 122/80 mm[Hg] Cornelius Brower CMA [facility] Where Was it Filmed 09:49:45 Date Recorded Body height Body mass index (BMI) Body weight Provider Name and Address Organization Details Last Updated DateTime 04/13/2024 162.56 cm 26.4 kg/m2 69122.22 g BELLO Milligan [place] [employer] [facility] Where Was it Filmed 04/13/2024 10:30:02 Date Recorded Body height Body mass index (BMI) Body weight Provider Name and Address Organization Details Last Updated DateTime 08/24/2024 162.56 cm 26.4 kg/m2 12152.22 g BELLO Peterson [place] [employer] [facility] Where Was it Filmed 08/24/2024 17:34:40 Social History Question Answer Notes LastModified by Organization Details LastModified Time Tobacco Smoking Status Never Smoker BELLO Peterson [facility] Where Was it Filmed 12/16/2023 17:00:59 Do You Have An Advance [...] Was Ill? No Information not available 12/16/2023 What Type Of Diet Are You Following? SPECIFIC Intermittant Fasting; Low/no Carb Information not available 12/16/2023 Which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
--- OUTSIDE RECORDS SUMMARY | 2025-04-19 13:41 | XMS_ITS | Clinical Summary ---
Author Organization [facility] Address [address] [place] [address] Care Team Providers Care Crm Marketing Specialist Name Role Phone Solange Sandoval MD Primary [...] on file Legal Sex Female 6:59 PM COMMODITIES TRADER Gender Identity Not on file Sexual Orientation Not on file Last Filed Vital Signs Vital Sign Reading Time Taken Comments Blood Pressure 132/66 09/01/2024 10:22 PM COMMODITIES TRADER Pulse 79 09/01/2024 10:22 PM COMMODITIES TRADER Temperature 36.6 C (97.9 F) 09/01/2024 10:22 PM COMMODITIES TRADER Respiratory Rate 18 09/01/2024 10:22 PM COMMODITIES TRADER Oxygen Saturation 95% 09/01/2024 10:22 PM COMMODITIES TRADER Inhaled Oxygen Concentration - - Weight 69.9 kg (154 lb) 09/01/2024 4:58 PM COMMODITIES TRADER Height 162.6 cm (5' 4) 09/01/2024 4:58 PM COMMODITIES TRADER Body Mass Index 26.43 09/01/2024 4:58 PM COMMODITIES TRADER Plan of Treatment Health Maintenance Due Date [...] - 19+ 3-dose series) 08/24/2015 03/27/2015, 02/21/2015 Pneumococcal Vaccine: 50+ Years (1 of 1 - PCV) 2023 Zoster Vaccines (1 of 2) 2023 COVID-19 Vaccine (4 - 2023-2 5 season) 2024 01/31/2022, 12/23/2020, 11/25/2020 DTaP, Tdap and Td Vaccines ( 2 - Td or Tdap) 04/12/2032 04/12/2022 Meningococcal B Vaccine Aged Out No l onger eligible based on patient's age to complete this topic Meningococcal Vaccine Aged Out No radha eve eligible based on patient's age to complete this topic RSV Immunizations Under 20 Months Aged Out No longer eligible b ased on patient's age to complete this topic Insurance [facility] Care Teams Crm Marketing Specialist Relationship Specialty Start Date End Date Solange Sandoval MD [facility] [place] [phone] PCP - General INTERNAL MEDICINE 08/06/24
--- OUTSIDE RECORDS SUMMARY | 2025-04-19 13:41 | XMS_ITS | Encounter Summary ---
Author Organization [facility] Address [address] [place] [address] Care Team Providers Care Heat Treater Head Name Role Phone Geena Avila Primary Care Provider [phone] Solange Sandoval MD Primary Care Provider Encounter Details Date Type Department Care Team (Late st Contact Info) Description 04/15/2022 Ophth Exam [facility] [address] [facility], [place] [address] Tej Hall MD [address] [address] Social History Tobacco Use Types [...] when you are drinking? 1 or 2 Q3: How often do you have si x or more drinks on one occasion? Monthly 04/14/2022 Hunger Vital Sign Answer Date Recorded Within the past 12 months, y ou worried that your food would run out before you got the money to buy more. Never true 07/05/20 22 Within the past 12 months, t he food you bought just didn't last and you didn't have money to get more. Never true 04/15/2022 Comments Unknown Sex and Gender Information Value Date Recorded Sex Assigned at Not on file Legal Sex Female 3:54 AM CDT Gender Identity Not on file Sexual Orientation Not on file documented as of this encounter Functional Status * Is person deaf or have serious hearing difficulty? Answer Date of Assessment Author No 04/13/2022 8:20 AM Mini Lazar RN * Is person blind or have serious difficulty seeing? Answer Date of Assessment Author No 04/13/2022 8:20 AM Mini Lazar RN * Does person have serious difficulty walking/climbing stairs? Answer Date of Assessment Author No 04/13/2022 8:20 AM Mini Lazar RN * Does person have difficulty dressing/bathing? Answer Date of Assessment Author No 04/13/2022 8:20 AM Mini Lazar RN * Does person have difficulty doing errands alone? Answer Date of Assessment Author No 04/13/2022 8:20 AM Mini Lazar RN documented as of this encounter Mental Status * Does person have difficulty concentrating/remembering/making decisions? Answer Entry Date Author No 04/13/2022 8:20 AM Mini Lazar RN documented in this encounter Plan of Treatment Not on file documented as of this encounter Visit Diagnoses Not on filedocumented in this encounter Care Teams Heat Treater Head Relationship Specialty Start Date End Date Geena Avila, BUNG REMOVER-ROLLER COASTER ENGINEER [address] [place] [address] PCP - General 06/10/22 09/01/24 Solange Sandoval MD [address] [phone] PCP - General Internal Medicine 09/02/24 documented as of this encounter
--- OUTSIDE RECORDS SUMMARY | 2025-04-19 13:41 | XMS_ITS | Encounter Summary ---
Author Organization [facility] Address [address] [address] Care Team Providers Care Car Unloader Helper Name Role Phone Geena Avila Primary Care Provider [phone] Solange Sandoval MD Primary Care Provider Encounter Details Date Type Department Care Team (Late st Contact Info) Description 04/17/2022 Ophth Exam [facility] [address] [facility], [place] [address] Tej Hall MD [address] [address] Social History Tobacco Use Types [...] to get more. Never true 04/15/2022 Comments No Sex and Gender Information Value [...] on filedocumented in this encounter Care Teams Car Unloader Helper Relationship Specialty Start Date End Date Geena Avila, FRONT EDGER-CATHODE WASHER [address] [place] [address] PCP - General 06/10/22 09/01/24 Solange Sandoval MD [address] [phone] PCP - General Internal Medicine 09/02/24 documented as of this encounter
--- OUTSIDE RECORDS SUMMARY | 2025-04-19 13:41 | XMS_ITS | Patient Health Record ---
Author Organization [facility] Address [address] [place], [place] [id number] Care Team Providers Care Australian Rules Footballer Name Role Phone NINA SOTO Unavailable [phone] Merrill Walter Unavailable Unavailable Reason For Referral No Information Medications Medication SIG (Take, Route, Frequency, Duration) Notes Start Date End Date Status Medrol Dosepak ORAL Medrol DosepakOr iginal MedicationMedrol Dosepak *Reorder from [email or web address] for eRx and Interaction Alerts* 05/10/2018 Active Plan Of Treatment No Information Insurance Providers Payer Name Payer Address Payer Phone Subscriber Number Group Number Insured Name Patient Relationship to Insured Coverage Start Date Coverage End Date [facility] [address] [address] [place] [id number] PEDRITO GOMEZ Self - patient is the insured
--- OUTSIDE RECORDS SUMMARY | 2025-04-19 13:41 | XMS_ITS | Encounter Summary ---
Author Organization [facility] Address [address] [place] [address] Care Team Providers Care Tax Evaluator Name Role Phone Geena Avila Primary Care Provider [phone] Solange Sandoval MD Primary Care Provider Encounter Details Date Type Department Care Team (Late st Contact Info) Description 04/12/2022 Ophth Exam [facility] [address] [place] [address] Allison Garrison MD [address] [place] [phone] Social History Tobacco Use Types Packs/Day Years [...] as of this encounter Functional Status * Question Answer Date of Assessment Author Q1: How often do you have a drink containing alcohol? 4 or more times a week 04/14/2022 12:00 AM Yady Diaz RN Q2: How many drinks containing alcohol do you have on a typical day when you are drinking? 1 or 2 04/14/2022 12:00 AM Yady Diaz RN Q3: How often do you have six or more drinks on one occasion? Monthly 04/14/2022 12:00 AM Yady Diaz RN * Audit-C Score Answer Date of Assessment Author 6 04/14/2022 12:00 AM Yady Diaz RN documented as of this encounter Plan of Treatment Not on file documented as of this encounter Visit Diagnoses Not on filedocumented in this encounter Care Teams Tax Evaluator Relationship Specialty Start Date End Date Geena Avila, FEATHER CURLING MACHINE OPERATOR-FLAVORING OIL FILTERER [address] [place] [address] PCP - General 06/10/22 09/01/24 Solange Sandoval MD [address] [phone] PCP - General Internal Medicine 09/02/24 documented as of this encounter
--- OUTSIDE RECORDS SUMMARY | 2025-04-19 13:41 | XMS_ITS | Clinical Summary ---
Author Organization [facility] Address [address] [place] [address] Care Team Providers Care Asset Coordinator Name Role Phone Solange Sandoval MD Primary Care Provider Source Comments [facility],non-owned Affiliates and Associated Physician Practices is amultiple site organization consisting of ambulatory clinics and hospital sitesin [place], [place], [place]. This disclosure is being madepursuant to the Care Everywhere program and may not contain all information available regarding this patient. Last updated 18.[facility] Allergies Active Allergy Reactions Criticality Noted Date Comments Codeine Urticaria,Rash Medium 04/16/2022 Sertraline Urticaria Medium 04/28/2024 Medications * This document contains information received from the source organization and may not represent a complete record from that organization. * Be aware that medications may not be up to date on this document. Alwaysverify current medications with the patient. buPROPion XL 24hr (WELLBUTRIN-XL ) 150 MG tablet 2 Active FLUoxetine (PROZAC) 40 MG capsule Take 1 (one) capsule by mouth once daily 2 Active traZODone (DESYREL) 100 MG tablet Take 1 (one) tablet by mouth at bedtime 2 Active busPIRone (BUSPAR) 15 MG tablet Take 1 (one) tablet by mouth 2 times daily 2 Active Additional Information Patient taking differently:15 mg Oral3 TIMES DAILY, Reported on 09/30/2022 lisinopril (Prinivil; Zestril) 20 MG tablet 3 Active atorvastatin (Lipitor) 10 MG tablet Take 1 (one) tablet by mouth once daily 3 Active prazosin (Minipress) 1 MG capsule 3 Active fish oil/omega-3 fatty acids (Promega;Cardi -[place]et[place] 3) 1000 MG capsule Take 1 (one) capsule by mouth 3 times daily with meals Active VITAMIN D, CHOLECALCIFERO L, PO Active acetaminophen (Tylenol) 325 MG tablet Take 2 (two) tablets by mouth every 6 hours as needed Maximum allowable Acetaminophen amount = 4 Grams (4000 mg) / 24 hours. 60 tablet 3 Active ibuprofen (Motrin) 600 MG tablet Take 1 (one) tablet by mouth every 6 hours as needed for Pain 30 tablet 3 Active dilTIAZem SR 24hr (Dilacor XR) 180 MG capsule 3 Active traMADol (Ultram) 50 MG tablet TAKE 1 TABLET BY MOUTH EVERY 6 HOURS FOR 7 DAYS NEEDED 3 Active azithromycin (Zithromax) 250 MG tablet as directed Acti ve buPROPion XL 24hr (Wellbutrin-XL ) 300 MG tablet 1 tablet daily Oral Once a day for 90 days 4 Active FLUoxetine (PROzac) 20 MG capsule Take 1 capsule every day by oral route. 4 Active Active Problems Problem Noted Date Diagnosed [...] of orthopedic implant of knee 04/23/2022 Immunizations Immunization Administration Dates Next Due César Carpio primary Monovalent 12+ yr 0.3ml Covnaga Pfizer primary monoval ent 12+ yr 0.3mL [...] Comments Blood Pressure 139/99 09/07/2024 2:39 PM [facility] Pulse 85 09/07/2024 2:39 PM [facility] Temperature 36.7 C (98 F) 09/07/2024 2:39 PM [facility] Respiratory Rate 18 09/03/2024 8:10 AM [facility] Oxygen Saturation 99% 09/07/2024 2:39 PM [facility] Inhaled Oxygen Concentration 30% 04/13/2022 4 :10 PM CDT Weight 72.6 kg (160 lb) 09/07/2024 2:39 PM [facility] Height 160 cm (5' 3) 09/07/2024 2:39 PM [facility] Body Mass Index 28.34 09/07/2024 2:39 PM [facility] Plan of Treatment Health Maintenance Due Date Last Done Comments COLOGUARD (AGES 45-75) - COLON CA SCREENING 1973 COLON MONITORING 1973 COLONOSCOPY - COLON CA SCREENING 1973 CT COLONOGRAPHY - COLON CA SCREENING 1973 Colorectal Cancer Screening 1973 FIT - COLON CA SCREENING 1973 FLEX SIG - COLON CA SCREENING 1973 MAMMOGRAM 1973 HIV SCREENING 1988 HEPATITIS C SCREENING 10/24/1991 PAP SMEAR 1994 HEPATITIS B VACCINE (3 of 3 - 19+ 3-dose series) 08/24/2015 03/27/2015, 02/21/2015 PNEUMOCOCCAL VACCINE 50+ (1 of 1 - PCV) 2023 ZOSTER VACCINE (1 of 2) 2023 COVID-19 VACCINE (4 - season) 2024 01/31/2022, 12/23/2020, 11/25/2020 DEPRESSION SCREENING 10/12/2024 07/08/2022 INFLUENZA VACCINE (#1) 2025 08/24/2024, 2020 SCREENING FOR DIABETES 09/03/2027 , 09/02/2024, 09/01/2024, Additional history exists DTAP/TDAP/TD VACCINES (2 - Td or Tdap) 04/12/2032 04/12/2022 HIB VACCINE Aged Out No longer eligi ble based on patient's age to complete this topic HPV VACCINE Aged Out No longer eligi ble based on patient's age to complete this topic MENINGOCOCCAL (Group B) VACCINE SHARED DECISION-MAKING Aged Out No longer eligible based on patient's age to complete this topic MENINGOCOCCAL GROUPS A/C/Y/W VACCINE Aged Out No longer eligible based on patient's age to complete this topic Medical Devices Implanted Type Area Ob Gyn Device Identifier Shelf Expiration Date Model / Serial / Lot Nail Im 9mm 36cm Versanail Fem Tmx Unv Implanted:Qty : 1 on 04/14/2022 by Malcom Andrews MD at [facility] Right: Femur [employer] 06/10/2024 [id number] 60 / / [id number] Screw 6.5mm 60mm Ft Sld Slf-Tap Drv End Implanted:Qty : 1 on 04/14/2022 by Malcom Andrews MD at [facility] Right: Femur [employer] [id number] / / Screw 4.5mm 40mm Oblq Ft Slf-Tap Sld 2 Implanted:Qty : 1 on 04/14/2022 by Malcom Andrews MD at [facility] Right: Femur [employer] [id number] / / Plate 24 Hl Mdfc .6mm Std Str Leibinger Implanted:Qty : 1 on 04/16/2022 at [facility] N/A: Maxilla Agusto Craniomaxillofacial [id number] / / Plate 4 Hl Bar Mdfc .6mm Std Crv Implanted:Qty : 1 on 04/16/2022 at [facility] N/A: Maxilla Yantis Craniom[employer]ill[employer] [id number] / / Screw 2.3mm 10mm Lck Xpn Mxlfcl Implanted:Qty : 2 on 04/16/2022 at [facility] N/A: Mandible Agusto Craniomaxillofacial [id number] / / Screw 2.3mm 12mm Lck Xpn Mxlfcl Implanted:Qty : 4 on 04/16/2022 at [facility] N/A: Mandible Yantis Craniomaxillofacial [id number] / / Plate,2.0mm 6 Hole With Span Implanted:Qty : 1 on 04/16/2022 at [facility] N/A: Mandible Yantis Craniomaxill[employer]acial [id number] / / Bone Screw 1.7x5mm Implanted:Qty : 15 on 04/16/2022 at [facility] N/A: Maxilla Agusto Craniomaxillofacial [id number] / / Explanted Type Area Ob Gyn Device Identifier Shelf Expiration Date Model / Serial / Lot Gw Orth 80cm Versanail Ball Nose Strl Explanted:Qty : 1 on 04/14/2022 by Malcom Andrews MD at [facility] Right: Femur [employer] 11/25/2031 [id number] / / [id number] Bone Screw 1.7x6mm Explanted:Qty : 1 on 04/16/2022 at [facility] N/A: Maxilla Agusto Craniomaxillofacial [id number] / / Plate 4 Hole Curved With Span Explanted:Qty : 1 on 04/16/2022 at [facility] N/A: Maxilla Yantis Craniomaxillofacial [id number] / / Wire Srg Stl Mfl Sz 4 22g 18inch Explanted:Qty : 1 on 04/16/2022 at [facility] N/A: Maxilla [employer] DS22 / / Screw 2mm 8mm Slf Drl Xpn Lgt Wire Mndb Explanted:Qty : 6 on 04/16/2022 at [facility] Craniomaxchristus [facility] / / Procedures Procedure Name Priority Date/Time Associated Diagnosis Comments BASIC METABOLIC PANEL (CALCIUM TOTAL) Routine 09/03/2024 4:56 AM [facility] Leg abscess from Last 3 Months or Most Recently Relevant to Health Maintenance Results * (ABNORMAL) BASIC METABOLIC PANEL (CALCIUM TOTAL) (09/03/2024 4:56 AM [facility]K HOST) BUN 21 7 - 26 mg/dL 09/03/2024 5:33 AM [facility] Creatinine 0.98(H) 0.56 - 0.96 mg/dL 09/03/2024 5:33 AM [facility] Sodium 135(L) 136 - 145 mmol/L 09/03/2024 5:33 AM [facility] Potassium 4.6(H) 3.5 - 4.5 mmol/L 09/03/2024 5:33 AM [facility] Chloride 109(H) 98 - 107 mmol/L 09/03/2024 5:33 AM [facility] CO2 20(L) 22 - 29 mmol/L 09/03/2024 5:33 AM [facility] Glucose 198(H) 70 - 99 mg/dL 09/03/2024 5:33 AM [facility] Calcium 8.7 8.4 - 10.2 mg/dL 09/03/2024 5:33 AM [facility] Anion Gap 6 6 - 16 09/03/2024 5:33 AM [facility] BUN/Creatinine Ratio 21 7 - 23 09/03/2024 5:33 AM [facility] Osmolality Calculated 289 275 - 295 mOsm/kg 09/03/2024 5:33 AM [facility] eGFR by CKD-EPI 70(L) >=90 mL/min/1.7 3 m2 09/03/2024 5:33 AM [facility] Blood BLOOD SPECIMEN / Unknown Lab Venipuncture / Unknown 09/03/2024 4:56 AM [facility] 09/03/2024 5:06 AM [facility] Breanne Zafar MD LAB - CHEMISTRY ORDERAB LES Final Result [facility] [address] [place] [address], [facility] [phone] from Last 3 Months or Most Recently Relevant to [place] [address] [facility] MEDICAID - OUT OF STATE [facility] SELF PAY NO INSURANCE Pay SELF PAY NO INSURANCE [id number] [place] [address] CARE * Guarantor: PEDRITO GOMEZ Account Type Relation to Patient Date of Phone Billing Address Personal/Family 1975 [employer] Member Subscriber Plan / Payer (Ef fective 2021-Present) Name:Pedrito Gomez Relation to Subscriber:Self Name:PEDRITO GOMEZ Payer ID:[id number] (NAIC) Type:O Address: [place] [id number] [facility] MEDICAID - OUT OF [facility] MEDICAID - OUT OF STATE Member Subscriber Plan / Payer (Ef fective for All Dates) Name:Pedrito Gomez Relation to Subscriber:Self Name:PEDRITO GOMEZ Payer ID:Not on file Group ID:Not on file Type:Medicaid Address: [address] [facility] CARE [facility] MEDICAID - OUT OF STATE Member Subscriber Plan / Payer (Ef fective for All Dates) Name:Pedrito Gomez Relation to Subscriber:Self Name:PEDRITO GOMEZ Payer ID:Not on file Group ID:Not on file Type:Medicaid Address: [address] CARE [facility] MEDICAID - OUT OF STATE Member Subscriber Plan / Payer (Ef fective for All Dates) Name:Pedrito Gomez A Relation to Subscriber:Self Name:PEDRITO GOMEZ Payer ID:Not on file Group ID:Not on file Type:Medicaid Address: [address] [facility] MEDICAID - OUT OF STATE Member Subscriber Plan / Payer (Ef fective for All Dates) Name:Pedrito Gomez A Relation to Subscriber:Self Name:PEDRITO GOMEZ Payer ID:Not on file Group ID:Not on file Type:Medicaid Address: [address] Member Subscriber Plan / Payer (Ef fective 2021-Present) Name:Pedrito Gomez A Relation to Subscriber:Self Name:PEDRITO GOMEZ Payer ID:[id number] (NAIC) Type:O Address: [address] [facility] Member Subscriber Plan / Payer (Ef fective 2021-) Name:Pedrito Gomez A Relation to Subscriber:Self Name:PEDRITO GOMEZ Payer ID:[id number] (NAIC) Type:O Address: [address] [facility] Member Subscriber Plan / Payer (Ef fective 2021-) Name:Pedrito Gomez A Relation to Subscriber:Self Name:PEDRITO GOMEZ Payer ID:[id number] (NAIC) Type:O Address: [address] CARE Member Subscriber Plan / Payer ( fective 2021-) Name:Pedrito Gomez A Relation to Subscriber:Self Name:PEDRITO GOMEZ Payer ID:[id number] (NAIC) Type:O Address: [address] [facility] Member Subscriber Plan / Payer (Ef fective 2021-) Name:Pedrito Gomez Relation to Subscriber:Self Name:PEDRITO GOMEZ Payer ID:[id number] (NAIC) Type:O Address: [address] [facility] Member Subscriber Plan / Payer (Ef fective 2021-Present) Name:Pedrito Gomez Relation to Subscriber:Self Name:PEDRITO GOMEZ Payer ID:[id number] ([facility]) Type:HMO Address: [address] [facility] Member Subscriber Plan / Payer (Ef fective 2021-) Name:Pedrito Gomez Relation to Subscriber:Self Name:PEDRITO GOMEZ Payer ID:[id number] ([facility]) Type:AdRollO Address: [address] CARE Member Subscriber Plan / Payer (Ef fective 2021-) Name:Pedrito Gomez Relation to Subscriber:Self Name:PEDRITO GOMEZ Payer ID:[id number] (IC) Type:HMO Address: [address] [facility] Member Subscriber Plan / Payer (Ef fective 2021-Present) Name:Pedrito Gomez A Relation to Subscriber:Self Name:PEDRITO GOMEZ Payer ID:[id number] (NAIC) Type:HMO Address: [address] [facility] Member Subscriber Plan / Payer (Ef fective 2021-Present) Name:Pedrito Gomez A Relation to Subscriber:Self Name:PEDRITO GOMEZ Payer ID:[id number] (NAIC) Type:O Address: [address] [facility] Member Subscriber Plan / Payer (Ef fective 2021-) Name:Pedrito Gomez A Relation to Subscriber:Self Name:PEDRITO GOMEZ Payer ID:[id number] (NAIC) Type:O Address: [address] [facility] Member Subscriber Plan / Payer (Ef fective 2021-) Name:Pedrito Gomez A Relation to Subscriber:Self Name:PEDRITO GOMEZ Payer ID:[id number] (NAIC) Type:O Address: [address] [facility] Member Subscriber Plan / Payer (Ef fective 2021-) Name:Pedrito Gomez A Relation to Subscriber:Self Name:PEDRITO GOMEZ Payer ID:[id number] (NAIC) Type:O Address: [address] [facility] Member Subscriber Plan / Payer (Ef fective 2021-) Name:Pedrito Gomez Relation to Subscriber:Self Name:PEDRITO GOMEZ Payer ID:[id number] (NAIC) Type:O Address: [address] [facility] Member Subscriber Plan / Payer (Ef fective 2021-) Name:Pedrito Gomez Relation to Subscriber:Self Name:PEDRITO GOMEZ Payer ID:[id number] ([facility]) Type:O Address: [address] [facility] Member Subscriber Plan / Payer (Ef fective 2021-) Name:Pedrito Gomez A Relation to Subscriber:Self Name:PEDRITO GOMEZ Payer ID:[id number] ([facility]) Type:AdRollO Address: [address] CARE Member Subscriber Plan / Payer (Ef fective 2021-) Name:Pedrito Gomez A Relation to Subscriber:Self Name:PEDRITO GOMEZ Payer ID:[id number] (NAIC) Type:O Address: [address] [facility] Member Subscriber Plan / Payer (Ef fective 2021-) Name:Pedrito Gomez A Relation to Subscriber:Self Name:PEDRITO GOMEZ Payer ID:[id number] (NAIC) Type:O Address: [address] [facility] Member Subscriber Plan / Payer (Ef fective 2021-) Name:Pedrito Gomez Relation to Subscriber:Self Name:PEDRITO GOMEZ Payer ID:[id number] (NAIC) Type:AdRollO Address: [address] [facility] Member Subscriber Plan / Payer (Ef fective 2021-) Name:Pedrito Gomez A Relation to Subscriber:Self Name:PEDRITO GOMEZ Payer ID:[id number] (NAIC) Type:AdRollO Address: [address] [facility] Member Subscriber Plan / Payer (Ef fective 2021-) Name:Pedrito Gomez A Relation to Subscriber:Self Name:PEDRITO GOMEZ Payer ID:[id number] (NAIC) Type:AdRollO Address: [address] [facility] Member Subscriber Plan / Payer (Ef fective 2021-) Name:Pedrito Gomez Relation to Subscriber:Self Name:PEDRITO GOMEZ Payer ID:[id number] (NAIC) Type:AdRollO Address: [address] [facility] Member Subscriber Plan / Payer (Ef fective 2021-) Name:Pedrito Gomez Relation to Subscriber:Self Name:PEDRITO GOMEZ Payer ID:[id number] (NAIC) Type:O Address: [address] [facility] Member Subscriber Plan / Payer (Ef fective 2021-) Name:Pedrito Gomez Relation to Subscriber:Self Name:PEDRITO GOMEZ Payer ID:[id number] ([facility]) Type:HMO Address: [address] [facility] Member Subscriber Plan / Payer (Ef fective 2021-) Name:Pedrito Gomez A Relation to Subscriber:Self Name:PEDRITO GOMEZ Payer ID:[id number] ([facility]) Type:O Address: [address] CARE Member Subscriber Plan / Payer (Ef fective 2021-) Name:Pedrito Gomez A Relation to Subscriber:Self Name:PEDRITO GOMEZ Payer ID:[id number] (NAIC) Type:O Address: [address] [facility] Member Subscriber Plan / Payer (Ef fective 2021-) Name:Pedrito Gomez A Relation to Subscriber:Self Name:PEDRITO GOMEZ Payer ID:[id number] (NAIC) Type:O Address: [address] [facility] Member Subscriber Plan / Payer (Ef fective 2021-Present) Name:Pedrito Gomez A Relation to Subscriber:Self Name:PEDRITO GOMEZ Payer ID:[id number] (NAIC) Type:O Address: [address] [facility] Member Subscriber Plan / Payer (Ef fective 2021-Present) Name:Pedrito Gomez A Relation to Subscriber:Self Name:PEDRITO GOMEZ Payer ID:[id number] (NAIC) Type:AdRollO Address: [address] [facility] Member Subscriber Plan / Payer (Ef fective 2021-Present) Name:Pedrito Gomez A Relation to Subscriber:Self Name:PEDRITO GOMEZ Payer ID:[id number] (NAIC) Type:AdRollO Address: [address] [facility] Member Subscriber Plan / Payer (Ef fective 2021-Present) Name:Pedrito Gomez A Relation to Subscriber:Self Name:PEDRITO GOMEZ Payer ID:[id number] (NAIC) Type:HMO Address: [address] [facility] Member Subscriber Plan / Payer (Ef fective 2021-Present) Name:Pedrito Gomez Relation to Subscriber:Self Name:PEDRITO GOMEZ Payer ID:[id number] (NAIC) Type:O Address: [address] [facility] Member Subscriber Plan / Payer (Ef fective 2021-) Name:Pedrito Gomez Relation to Subscriber:Self Name:PEDRITO GOMEZ Payer ID:[id number] (NA) Type:HMO Address: [address] [facility] Member Subscriber Plan / Payer (Ef fective 2021-) Name:Pedrito Gomez Relation to Subscriber:Self Name:PEDRITO GOMEZ Payer ID:[id number] ([facility]) Type:O Address: [address] CARE Member Subscriber Plan / Payer (Ef fective 2021-) Name:Pedrito Gomez Relation to Subscriber:Self Name:PEDRITO GOMEZ Payer ID:[id number] (NAIC) Type:O Address: [address] [facility] Member Subscriber Plan / Payer (Ef fective 2021-) Name:Pedrito Gomez A Relation to Subscriber:Self Name:PEDRITO GOMEZ Payer ID:[id number] (NAIC) Type:O Address: [address] [facility] Member Subscriber Plan / Payer (Ef fective 2021-Present) Name:Pedrito Gomez A Relation to Subscriber:Self Name:PEDRITO GOMEZ Payer ID:[id number] (NAIC) Type:O Address: [address] [facility] Member Subscriber Plan / Payer (Ef fective 2021-Present) Name:Pedrito Gomez A Relation to Subscriber:Self Name:PEDRITO GOMEZ Payer ID:[id number] (NAIC) Type:AdRollO Address: [address] [facility] Member Subscriber Plan / Payer (Ef fective 2021-Present) Name:Pedrito Gomez A Relation to Subscriber:Self Name:PEDRITO GOMEZ Payer ID:[id number] (NA) Type:AdRollO Address: [address] [facility] Member Subscriber Plan / Payer (Ef fective 2021-Present) Name:Pedrito Gomez A Relation to Subscriber:Self Name:PEDRITO GOMEZ Payer ID:[id number] (NAIC) Type:HMO Address: [address] [facility] Member Subscriber Plan / Payer (Ef fective 2021-Present) Name:Pedrito Gomez Relation to Subscriber:Self Name:PEDRITO GOMEZ Payer ID:[id number] (NAIC) Type:O Address: [address] [facility] Member Subscriber Plan / Payer (Ef fective 2021-) Name:Pedrito Gomez Relation to Subscriber:Self Name:PEDRITO GOMEZ Payer ID:[id number] ([facility]) Type:O Address: [address] [facility] Member Subscriber Plan / Payer (Ef fective 2021-) Name:Pedrito Gomez A Relation to Subscriber:Self Name:PEDRITO GOMEZ Payer ID:[id number] ([facility]) Type:O Address: [address] CARE Member Subscriber Plan / Payer (Ef fective 2021-) Name:Pedrito Gomez A Relation to Subscriber:Self Name:PEDRITO GOMEZ Payer ID:[id number] (NAIC) Type:O Address: [address] [facility] Member Subscriber Plan / Payer (Ef fective 2021-) Name:Pedrito Gomez A Relation to Subscriber:Self Name:PEDRITO GOMEZ Payer ID:[id number] (NAIC) Type:O Address: [address] [facility] Member Subscriber Plan / Payer (Ef fective 2021-) Name:Pedrito Gomez A Relation to Subscriber:Self Name:PEDRITO GOMEZ Payer ID:[id number] (NAIC) Type:O Address: [address] [facility] Member Subscriber Plan / Payer (Ef fective 2021-Present) Name:Pedrito Gomez A Relation to Subscriber:Self Name:PEDRITO GOMEZ Payer ID:[id number] (NAIC) Type:HMO Address: [address] [facility] Member Subscriber Plan / Payer (Ef fective 2021-) Name:Pedrito Gomez A Relation to Subscriber:Self Name:PEDRITO GOMEZ Payer ID:[id number] ([facility]) Type:O Address: [address] [facility] Member Subscriber Plan / Payer (Ef fective 2021-Present) Name:Pedrito Gomez Relation to Subscriber:Self Name:PEDRITO GOMEZ Payer ID:[id number] (NAIC) Type:HMO Address: [address] [facility] Member Subscriber Plan / Payer (Ef fective 2021-Present) Name:Pedrito Gomez Relation to Subscriber:Self Name:PEDRITO GOMEZ Payer ID:[id number] (NA) Type:O Address: [address] [facility] Member Subscriber Plan / Payer (Ef fective 2021-) Name:Pedrito Gomez Relation to Subscriber:Self Name:PEDRITO GOMEZ Payer ID:[id number] (NAIC) Type:O Address: [address] [facility] Member Subscriber Plan / Payer (Ef fective 2021-) Name:Pedrito Gomez Relation to Subscriber:Self Name:PEDRITO GOMEZ Payer ID:[id number] ([facility]) Type:O Address: [address] CARE Member Subscriber Plan / Payer (Ef fective 2021-) Name:Pedrito Gomez A Relation to Subscriber:Self Name:PEDRITO GOMEZ Payer ID:[id number] (NAIC) Type:O Address: [address] [facility] Member Subscriber Plan / Payer (Ef fective 2021-) Name:Pedrito Gomez A Relation to Subscriber:Self Name:PEDRITO GOMEZ Payer ID:[id number] (NAIC) Type:O Address: [address] [facility] Member Subscriber Plan / Payer (Ef fective 2021-) Name:Pedrito Gomez A Relation to Subscriber:Self Name:PEDRITO GOMEZ Payer ID:[id number] (NAIC) Type:O Address: [address] [facility] Member Subscriber Plan / Payer (Ef fective 2021-Present) Name:Pedrito Gomez A Relation to Subscriber:Self Name:PEDRITO GOMEZ Payer ID:[id number] ([facility]) Type:O Address: [address] [facility] Member Subscriber Plan / Payer (Ef fective 2021-) Name:Pedrito Gomez A Relation to Subscriber:Self Name:PEDRITO GOMEZ Payer ID:[id number] ([facility]) Type:O Address: [address] [facility] Member Subscriber Plan / Payer (Ef fective 2021-Present) Name:Pedrito Gomez Relation to Subscriber:Self Name:PEDRITO GOMEZ Payer ID:[id number] (NA) Type:HMO Address: [address] [facility] Member Subscriber Plan / Payer (Ef fective 2021-Present) Name:Pedrito Gomez Relation to Subscriber:Self Name:PEDRITO GOMEZ Payer ID:[id number] (NA) Type:O Address: [address] [facility] Member Subscriber Plan / Payer (Ef fective 2021-) Name:Pedrito Gomez Relation to Subscriber:Self Name:PEDRITO GOMEZ Payer ID:[id number] (NAIC) Type:O Address: [address] [facility] Member Subscriber Plan / Payer (Ef fective 2021-) Name:Pedrito Gomez Relation to Subscriber:Self Name:PEDRITO GOMEZ Payer ID:[id number] (NAIC) Type:O Address: [address] CARE Member Subscriber Plan / Payer (Ef fective 2021-) Name:Pedrito Gomez Milly Relation to Subscriber:Self Name:PEDRITO GOMEZ Payer ID:[id number] (NAIC) Type:O Address: [address] [facility] Member Subscriber Plan / Payer (Ef fective 2021-) Name:Pedrito Gomez A Relation to Subscriber:Self Name:PEDRITO GOMEZ Payer ID:[id number] (NAIC) Type:O Address: [address] [facility] Member Subscriber Plan / Payer (Ef fective 2021-) Name:Pedrito Gomez A Relation to Subscriber:Self Name:PEDRITO GOMEZ Payer ID:[id number] (NAIC) Type:O Address: [address] [facility] Member Subscriber Plan / Payer (Ef fective 2021-Present) Name:Pedrito Gomez A Relation to Subscriber:Self Name:PEDRITO GOMEZ Payer ID:[id number] (NA) Type:O Address: [address] [facility] Member Subscriber Plan / Payer (Ef fective 2021-) Name:Pedrito Gomez A Relation to Subscriber:Self Name:PEDRITO GOMEZ Payer ID:[id number] (IC) Type:AdRollO Address: [address] [facility] Member Subscriber Plan / Payer (Ef fective 2021-) Name:Pedrito Gomez A Relation to Subscriber:Self Name:PEDRITO GOMEZ Payer ID:[id number] (NA) Type:O Address: [address] [facility] Member Subscriber Plan / Payer (Ef fective 2021-Present) Name:Pedrito Gomez Relation to Subscriber:Self Name:PEDRITO GOMEZ Payer ID:[id number] (NA) Type:HMO Address: [address] [facility] Member Subscriber Plan / Payer (Ef fective 2021-) Name:Pedrito Gomez Milly Relation to Subscriber:Self Name:PEDRTIO GOMEZ Payer ID:[id number] (NAIC) Type:HMO Address: [address] [facility] Member Subscriber Plan / Payer (Ef fective 2021-) Name:Pedrito Gomez Relation to Subscriber:Self Name:PEDRITO GOMEZ Payer ID:[id number] (NA) Type:O Address: [address] CARE Member Subscriber Plan / Payer (Ef fective 2021-) Name:Pedrito Gomez Milly Relation to Subscriber:Self Name:PEDRITO GOMEZ Payer ID:[id number] (NAIC) Type:O Address: [address] [facility] Member Subscriber Plan / Payer (Ef fective 2021-) Name:Pedrito Gomez A Relation to Subscriber:Self Name:PEDRITO GOMEZ Payer ID:[id number] (NAIC) Type:O Address: [address] [facility] Member Subscriber Plan / Payer (Ef fective 2021-) Name:Pedrito Gomez A Relation to Subscriber:Self Name:PEDRITO GOMEZ Payer ID:[id number] (NAIC) Type:O Address: [address] [facility] Member Subscriber Plan / Payer (Ef fective 2021-Present) Name:Pedrito Gomez A Relation to Subscriber:Self Name:PEDRITO GOMEZ Payer ID:[id number] ([facility]) Type:AdRollO Address: [address] [facility] Member Subscriber Plan / Payer (Ef fective 2021-Present) Name:Pedrito Gomez A Relation to Subscriber:Self Name:PEDRITO GOMEZ Payer ID:[id number] (IC) Type:AdRollO Address: [address] [facility] Member Subscriber Plan / Payer (Ef fective 2021-Present) Name:Pedrito Gomez A Relation to Subscriber:Self Name:PEDRITO GOMEZ Payer ID:[id number] (NAIC) Type:O Address: [address] [facility] Member Subscriber Plan / Payer (Ef fective 2021-Present) Name:Pedrito Gomez Relation to Subscriber:Self Name:PEDRITO GOMEZ Payer ID:[id number] (NA) Type:O Address: [address] Member Subscriber Plan / Payer (Ef fective 2021-Present) Name:Pedrito Gomez Relation to Subscriber:Self Name:PEDRITO GOMEZ Payer ID:[id number] (NAIC) Type:O Address: [address] Member Subscriber Plan / Payer (Ef fective 2021-Present) Name:Pedrito Gomez Relation to Subscriber:Self Name:PEDRITO GOMEZ Payer ID:[id number] (NAIC) Type:O Address: [address] Advance Directives Documents on File Type Date Recorded 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
== END 2025-04-19 13:19 | disposition home or self-care (01) ==
PROVIDERS: PCP Internal Medicine; Visit Provider Internal Medicine
DX: Z13.820 Encounter for screening for osteoporosis (principal)
CPT/HCPCS: 77080

== ENCOUNTER 2025-04-20 00:38 | Day surgery (SDC) | payer OTHER, SELFPAY ==
[2025-03-27 15:58] VITALS: BMI 28.0
--- OUTSIDE RECORDS SUMMARY | 2025-04-20 00:52 | XMS_ITS | Encounter Summary ---
Author Organization [facility] Address [address] [facility] [place] [address] Care Team Providers Care Scale Installer Name Role Phone Geena Avila Primary Care Provider [phone] Solange Sandoval MD Primary Care Provider Encounter Details Date Type Department Care Team (Late st Contact Info) Description 04/17/2022 Ophth Exam [facility] [address] [facility], [place] [address] Tej Hall MD [address] [address] Social History Tobacco Use Types [...] on filedocumented in this encounter Care Teams Scale Installer Relationship Specialty Start Date End Date Geena Avila, DRYWALL FINISHING FOREMAN-SIGN LANGUAGE INSTRUCTOR [address] [place] [address] PCP - General 06/10/22 09/01/24 Solange Sandoval MD [address] [phone] PCP - General Internal Medicine 09/02/24 documented as of this encounter
--- OUTSIDE RECORDS SUMMARY | 2025-04-20 00:52 | XMS_ITS | Encounter Summary ---
Author Organization [facility] Address [address] [facility] [place] [address] Care Team Providers Care Train Station Server Name Role Phone Geena Avila Primary Care Provider [phone] Solange Sandoval MD Primary Care Provider Encounter Details Date Type Department Care Team (Late st Contact Info) Description 04/15/2022 Ophth Exam [facility] [address] [facility], [place] [address] Tej Hall MD [address] [address] Social History Tobacco Use Types [...] on filedocumented in this encounter Care Teams Train Station Server Relationship Specialty Start Date End Date Geena Avila, STAFF CYTOTECHNOLOGIST-CHANGE MANAGEMENT COORDINATOR [address] [place] [address] PCP - General 06/10/22 09/01/24 Solange Sandoval MD [address] [phone] PCP - General Internal Medicine 09/02/24 documented as of this encounter
--- OUTSIDE RECORDS SUMMARY | 2025-04-20 00:52 | XMS_ITS | Encounter Summary ---
Author Organization [facility] Address [address] [facility] [address] Care Team Providers Care Property Consultant Name Role Phone Geena Avila Primary Care Provider [phone] Solange Sandoval MD Primary Care Provider Encounter Details Date Type Department Care Team (Late st Contact Info) Description 04/12/2022 Ophth Exam [facility] [address] [place] [address] Allison Garrison MD [address] [place] [phone] Social History Tobacco Use Types Packs/Day Years [...] on filedocumented in this encounter Care Teams Property Consultant Relationship Specialty Start Date End Date Geena Avila, AUDIOMETRIST-DIRECTOR OF CARDIOLOGY [address] [place] [address] PCP - General 06/10/22 09/01/24 Solange Sandoval MD [address] [phone] PCP - General Internal Medicine 09/02/24 documented as of this encounter
--- OUTSIDE RECORDS SUMMARY | 2025-04-20 00:52 | XMS_ITS | Patient Health Record ---
Author Organization [facility] Address [address] [place], [place] [address] Care Team Providers Care Sled Maker Name Role Phone NINA SOTO Unavailable [phone] Merrill Walter Unavailable Unavailable Reason For Referral No Information Medications Medication SIG (Take, Route, Frequency, Duration) Notes Start Date End Date Status Medrol Dosepak ORAL Medrol DosepakOr iginal MedicationMedrol Dosepak *Reorder from Access Mobile for eRx and Interaction Alerts* 05/10/2018 Active Plan Of Treatment No Information Insurance Providers Payer Name Payer Address Payer Phone Subscriber Number Group Number Insured Name Patient Relationship to Insured Coverage Start Date Coverage End Date [facility] [address] [address] [place] [id number] PEDRITO GOMEZ Self - patient is the insured
--- OUTSIDE RECORDS SUMMARY | 2025-04-20 00:53 | XMS_ITS | Clinical Summary ---
Author Organization [facility] Address [address] [place] [address] Care Team Providers Care Manager Statistical Name Role Phone Solange Sandoval MD Primary Care Provider Source Comments [facility],non-owned Affiliates and Associated Physician Practices is amultiple site organization consisting of ambulatory clinics and hospital sitesin [place], [place], [place] and [place]. This disclosure is being madepursuant to the Care Everywhere program and may not contain all information available regarding this patient. Last updated 18.[facility] Allergies Active Allergy Reactions Criticality Noted Date [...] 3 Active fish oil/omega-3 fatty acids (Promega;Cardi -[place] 3) 1000 MG capsule Take 1 (one) [...] Comments Blood Pressure 139/99 09/07/2024 2:39 PM [facility] Pulse 85 09/07/2024 2:39 PM [facility] Temperature 36.7 C (98 F) 09/07/2024 2:39 PM [facility] Respiratory Rate 18 09/03/2024 8:10 AM [facility] Oxygen Saturation 99% 09/07/2024 2:39 PM [facility] Inhaled Oxygen Concentration 30% 04/13/2022 4 :10 PM CDT Weight 72.6 kg (160 lb) 09/07/2024 2:39 PM [facility] Height 160 cm (5' 3) 09/07/2024 2:39 PM [facility] Body Mass Index 28.34 09/07/2024 2:39 PM [facility] Plan of Treatment Health Maintenance Due Date [...] this topic Medical Devices Implanted Type Area Assistant Therapy Aide Device Identifier Shelf Expiration Date Model / Serial / Lot Nail Im 9mm 36cm Versanail Fem Tmx Unv Implanted:Qty : 1 on 04/14/2022 by Malcom Andrews MD at [facility] Right: Femur [employer] 06/10/2024 [id number] 60 / / [id number] Screw 6.5mm 60mm Ft Sld Slf-Tap Drv End Implanted:Qty : 1 on 04/14/2022 by Malcom Andrews MD at [facility] Right: Femur [employer] [id number] / / Screw 4.5mm 40mm Oblq Ft Slf-Tap Sld 2 Implanted:Qty : 1 on 04/14/2022 by Malcom Andrews MD at [facility] Right: Femur [employer] [id number] / / Plate 24 Hl Mdfc .6mm Std Str Leibinger Implanted:Qty : 1 on 04/16/[address] [facility] N/A: Maxilla Arlington [employer]ill[employer] [id number] / / Plate 4 Hl Bar Mdfc .6mm Std Crv Implanted:Qty : 1 on 04/16/[address] [facility] N/A: Maxilla Arlington [employer]ill[employer] [id number] / / Screw 2.3mm 10mm Lck Xpn Mxlfcl Implanted:Qty : 2 on 04/16/[address] [facility] N/A: Mandible Arlington Craniomaxill[employer]acial [id number] / / Screw 2.3mm 12mm Lck Xpn Mxlfcl Implanted:Qty : 4 on 04/16/[address] [facility] N/A: Mandible Agusto Craniomaxillofacial [id number] / / Plate,2.0mm 6 Hole With Span Implanted:Qty : 1 on 04/16/[address] [facility] N/A: Mandible [employer]ill[employer] [id number] / / Bone Screw 1.7x5mm Implanted:Qty : 15 on 04/16/[address] [facility] N/A: Maxilla Agusto Craniomaxill[employer]acial [id number] / / Explanted Type Area Assistant Therapy Aide Device Identifier Shelf Expiration Date Model / Serial / Lot Gw Orth 80cm Versanail Ball Nose Strl Explanted:Qty : 1 on 04/14/2022 by Malcom Andrews MD at [facility] Right: Femur [employer] 11/25/2031 [id number] / / [id number] Bone Screw 1.7x6mm Explanted:Qty : 1 on 04/16/[address] [facility] N/A: Maxilla Agusto Craniomaxillofacial [id number] / / Plate 4 Hole Curved With Span Explanted:Qty : 1 on 04/16/[address] [facility] N/A: Maxilla Arlington Craniomaxillofacial [id number] / / Wire Srg Stl Mfl Sz 4 22g 18inch Explanted:Qty : 1 on 04/16/[address] [facility] N/A: Maxilla [employer] DS22 / / Screw 2mm 8mm Slf Drl Xpn Lgt Wire Mndb Explanted:Qty : 6 on 04/16/2022 at [facility] / / Procedures Procedure Name Priority Date/Time Associated Diagnosis Comments BASIC METABOLIC PANEL (CALCIUM TOTAL) Routine 09/03/2024 4:56 AM [facility] Leg abscess from Last 3 Months or Most Recently Relevant to Health Maintenance Results * (ABNORMAL) BASIC METABOLIC PANEL (CALCIUM TOTAL) (09/03/2024 4:56 AM [facility]) BUN 21 7 - 26 mg/dL 09/03/2024 5:33 AM [facility]ORY H[facility]PITAL Creatinine 0.98(H) 0.56 - 0.96 mg/dL 09/03/2024 5:33 AM [facility]3] LABORATORY [facility] Sodium 135(L) 136 - 145 mmol/L 09/03/2024 5:33 AM [facility]3] LABORATORY [facility] Potassium 4.6(H) 3.5 - 4.5 mmol/L 09/03/2024 5:33 AM [facility]3] LABORATORY [facility] Chloride 109(H) 98 - 107 mmol/L 09/03/2024 5:33 AM [facility]3] LABORATORY [facility] CO2 20(L) 22 - 29 mmol/L 09/03/2024 5:33 AM [facility] Glucose 198(H) 70 - 99 mg/dL 09/03/2024 5:33 AM [facility] Calcium 8.7 8.4 - 10.2 mg/dL 09/03/2024 5:33 AM [facility] Anion Gap 6 6 - 16 09/03/2024 5:33 AM [facility] BUN/Creatinine Ratio 21 7 - 23 09/03/2024 5:33 AM [facility] Osmolality Calculated 289 275 - 295 mOsm/kg 09/03/2024 5:33 AM [facility] eGFR by CKD-EPI 70(L) >=90 mL/min/1.7 3 m2 09/03/2024 5:33 AM [facility] Blood BLOOD SPECIMEN / Unknown Lab Venipuncture / Unknown 09/03/2024 4:56 AM [facility] 09/03/2024 5:06 AM [facility] Breanne Zafar MD LAB - CHEMISTRY ORDERAB LES Final Result [facility] [address] [place] [address], [facility] [phone] from Last 3 Months or Most Recently Relevant to Health [place] [address] [place] [address] [place] [address] [facility] MEDICAID - OUT OF STATE [place] [address] SELF PAY NO INSURANCE Pay SELF PAY NO INSURANCE [id number] [place] [address] CARE * Guarantor: PEDRITO GOMEZ Account Type Relation to Patient Date of Phone Billing Address Personal/Family 1975 [employer] Member Subscriber Plan / Payer (Ef fective 2021-Present) Name:Pedrito Gomez Relation to Subscriber:Self Name:PEDRITO GOMEZ Payer ID:[id number] (NAIC) Type:O Address: [place] [id number] [facility] MEDICAID - OUT OF [facility] MEDICAID - OUT OF STATE Member Subscriber Plan / Payer (Ef fective for All Dates) Name:Pedrito Gomez Relation to Subscriber:Self Name:PEDRITO GOMEZ Payer ID:Not on file Group ID:Not on file Type:Medicaid Address: [address] [facility]ARE [facility] MEDICAID - OUT OF STATE Member Subscriber Plan / Payer (Ef fective for All Dates) Name:Pedrito Gomez Relation to Subscriber:Self Name:PEDRITO GOMEZ Payer ID:Not on file Group ID:Not on file Type:Medicaid Address: [address] CARE [facility] MEDICAID - OUT OF STATE Member Subscriber Plan / Payer (Ef fective for All Dates) Name:Pedrito Gomez A Relation to Subscriber:Self Name:PEDRITO GOMEZ Payer ID:Not on file Group ID:Not on file Type:Medicaid Address: [address] [facility] MEDICAID - OUT OF STATE Member Subscriber Plan / Payer (Ef fective for All Dates) Name:Pedrito Gomez A Relation to Subscriber:Self Name:PEDRITO GOMEZ Payer ID:Not on file Group ID:Not on file Type:Medicaid Address: [address] Member Subscriber Plan / Payer (Ef fective 2021-Present) Name:Pedrito Gomez A Relation to Subscriber:Self Name:PEDRITO GOMEZ Payer ID:[id number] (NAIC) Type:O Address: [address] [facility] Member Subscriber Plan / Payer (Ef fective 2021-) Name:Pedrito Gomez A Relation to Subscriber:Self Name:PEDRITO GOMEZ Payer ID:[id number] (NAIC) Type:O Address: [address] [facility] Member Subscriber Plan / Payer (Ef fective 2021-) Name:Pedrito Gomez A Relation to Subscriber:Self Name:PEDRITO GOMEZ Payer ID:[id number] (NAIC) Type:O Address: [address] CARE Member Subscriber Plan / Payer ( fective 2021-) Name:Pedrito Gomez A Relation to Subscriber:Self Name:PEDRITO GOMEZ Payer ID:[id number] (NAIC) Type:O Address: [address] [facility] Member Subscriber Plan / Payer (Ef fective 2021-) Name:Pedrito Gomez Relation to Subscriber:Self Name:PEDRITO GOMEZ Payer ID:[id number] (NAIC) Type:O Address: [address] [facility] Member Subscriber Plan / Payer (Ef fective 2021-Present) Name:Pedrito Gomez Relation to Subscriber:Self Name:PEDRITO GOMEZ Payer ID:[id number] ([facility]) Type:HMO Address: [address] [facility] Member Subscriber Plan / Payer (Ef fective 2021-) Name:Pedrito Gomez Relation to Subscriber:Self Name:PEDRITO GOMEZ Payer ID:[id number] ([facility]) Type:[place] Address: [address] CARE Member Subscriber Plan / Payer (Ef fective 2021-) Name:Pedrito Gomez Relation to Subscriber:Self Name:PEDRITO GOMEZ Payer ID:[id number] (IC) Type:HMO Address: [address] [facility] Member Subscriber Plan / Payer (Ef fective 2021-Present) Name:Pedrito Gomez A Relation to Subscriber:Self Name:PEDRITO GOMEZ Payer ID:[id number] (NAIC) Type:HMO Address: [address] [facility] Member Subscriber Plan / Payer (Ef fective 2021-Present) Name:Pedrito Gomez A Relation to Subscriber:Self Name:PEDRITO GOMEZ Payer ID:[id number] (NAIC) Type:O Address: [address] [facility] Member Subscriber Plan / Payer (Ef fective 2021-) Name:Pedrito Gomez A Relation to Subscriber:Self Name:PEDRITO GOMEZ Payer ID:[id number] (NAIC) Type:O Address: [address] [facility] Member Subscriber Plan / Payer (Ef fective 2021-) Name:Pedirto Gomez A Relation to Subscriber:Self Name:PEDRITO GOMEZ Payer ID:[id number] (NAIC) Type:O Address: [address] [facility] Member Subscriber Plan / Payer (Ef fective 2021-) Name:Pedrito Gomez A Relation to Subscriber:Self Name:PEDRITO GOMEZ Payer ID:[id number] (NAIC) Type:O Address: [address] [facility] Member Subscriber Plan / Payer (Ef fective 2021-) Name:Pedrito Gomez Relation to Subscriber:Self Name:PEDRITO GOMEZ Payer ID:[id number] (NAIC) Type:O Address: [address] [facility] Member Subscriber Plan / Payer (Ef fective 2021-) Name:Pedrito Gomez Relation to Subscriber:Self Name:PEDRITO GOMEZ Payer ID:[id number] ([facility]) Type:O Address: [address] [facility] Member Subscriber Plan / Payer (Ef fective 2021-) Name:Pedrito Gomez A Relation to Subscriber:Self Name:PEDRITO GOMEZ Payer ID:[id number] ([facility]) Type:[place] Address: [address] CARE Member Subscriber Plan / Payer (Ef fective 2021-) Name:Pedrito Gomez A Relation to Subscriber:Self Name:PEDRITO GOMEZ Payer ID:[id number] (NAIC) Type:O Address: [address] [facility] Member Subscriber Plan / Payer (Ef fective 2021-) Name:Pedrito Gomez A Relation to Subscriber:Self Name:PEDRITO GOMEZ Payer ID:[id number] (NAIC) Type:O Address: [address] [facility] Member Subscriber Plan / Payer (Ef fective 2021-) Name:Pedrito Gomez Relation to Subscriber:Self Name:PEDRITO GOMEZ Payer ID:[id number] (NAIC) Type:[place] Address: [address] [facility] Member Subscriber Plan / Payer (Ef fective 2021-) Name:Pedrito Gomez A Relation to Subscriber:Self Name:PEDRITO GOMEZ Payer ID:[id number] (NAIC) Type:[place] Address: [address] [facility] Member Subscriber Plan / Payer (Ef fective 2021-) Name:Pedrito Gomez A Relation to Subscriber:Self Name:PEDRITO GOMEZ Payer ID:[id number] (NAIC) Type:[place] Address: [address] [facility] Member Subscriber Plan / Payer (Ef fective 2021-) Name:Pedrito Gomez Relation to Subscriber:Self Name:PEDRITO GOMEZ Payer ID:[id number] (NAIC) Type:[place] Address: [address] [facility] Member Subscriber Plan / Payer (Ef fective 2021-) Name:Pedrito Gomez Relation to Subscriber:Self Name:PEDRITO GOMEZ Payer ID:[id number] (NAIC) Type:O Address: [address] [facility] Member Subscriber Plan / Payer (Ef fective 2021-) Name:Pedrito Gomez Relation to Subscriber:Self Name:PEDRITO GOMEZ Payer ID:[id number] ([facility]) Type:HMO Address: [address] [facility] Member Subscriber Plan / Payer (Ef fective 2021-) Name:Pedrito Gomez A Relation to Subscriber:Self Name:PEDRITO GOMEZ Payer ID:[id number] ([facility]) Type:O Address: [address] CARE Member Subscriber Plan / Payer (Ef fective 2021-) Name:Pedrito Gomez A Relation to Subscriber:Self Name:PEDRITO GOMEZ Payer ID:[id number] (NAIC) Type:O Address: [address] [facility] Member Subscriber Plan / Payer (Ef fective 2021-) Name:Pedrito Gomez A Relation to Subscriber:Self Name:PEDRITO GOMEZ Payer ID:[id number] (NAIC) Type:O Address: [address] [facility] Member Subscriber Plan / Payer (Ef fective 2021-Present) Name:Pedrito Gomez A Relation to Subscriber:Self Name:PEDRITO GOMEZ Payer ID:[id number] (NAIC) Type:O Address: [address] [facility] Member Subscriber Plan / Payer (Ef fective 2021-Present) Name:Pedrito Gomez A Relation to Subscriber:Self Name:PEDRITO GOMEZ Payer ID:[id number] (NAIC) Type:[place] Address: [address] [facility] Member Subscriber Plan / Payer (Ef fective 2021-Present) Name:Pedrito Gomez A Relation to Subscriber:Self Name:PEDRITO GOMEZ Payer ID:[id number] (NAIC) Type:[place] Address: [address] [facility] Member Subscriber Plan / Payer (Ef fective 2021-Present) Name:Pedrito Gomez A Relation to Subscriber:Self Name:PEDRITO GOMEZ Payer ID:[id number] (NAIC) Type:HMO Address: [address] [facility] Member Subscriber Plan / Payer (Ef fective 2021-Present) Name:Pedrito Gomez Relation to Subscriber:Self Name:PEDRITO GOMEZ Payer ID:[id number] (NAIC) Type:O Address: [address] [facility] Member Subscriber Plan / Payer (Ef fective 2021-) Name:Pedrito Gomez Relation to Subscriber:Self Name:PEDRITO GOMEZ Payer ID:[id number] (NA) Type:HMO Address: [address] [facility] Member Subscriber Plan / Payer (Ef fective 2021-) Name:Pedrito Gomez Relation to Subscriber:Self Name:PEDRITO GOMEZ Payer ID:[id number] ([facility]) Type:O Address: [address] CARE Member Subscriber Plan / Payer (Ef fective 2021-) Name:Pedrito Gomez Relation to Subscriber:Self Name:PEDRITO GOMEZ Payer ID:[id number] (NAIC) Type:O Address: [address] [facility] Member Subscriber Plan / Payer (Ef fective 2021-) Name:Pedrito Gomez A Relation to Subscriber:Self Name:PEDRITO GOMEZ Payer ID:[id number] (NAIC) Type:O Address: [address] [facility] Member Subscriber Plan / Payer (Ef fective 2021-Present) Name:Pedrito Gomez A Relation to Subscriber:Self Name:PEDRITO GOMEZ Payer ID:[id number] (NAIC) Type:O Address: [address] [facility] Member Subscriber Plan / Payer (Ef fective 2021-Present) Name:Pedrito Gomez A Relation to Subscriber:Self Name:PEDRITO GOMEZ Payer ID:[id number] (NAIC) Type:[place] Address: [address] [facility] Member Subscriber Plan / Payer (Ef fective 2021-Present) Name:Pedrito Gomez A Relation to Subscriber:Self Name:PEDRITO GOMEZ Payer ID:[id number] (NA) Type:[place] Address: [address] [facility] Member Subscriber Plan / Payer (Ef fective 2021-Present) Name:Pedrito Gomez A Relation to Subscriber:Self Name:PDERITO GOMEZ Payer ID:[id number] (NAIC) Type:HMO Address: [address] [facility] Member Subscriber Plan / Payer (Ef fective 2021-Present) Name:Pedrito Gomez Relation to Subscriber:Self Name:PEDRITO GOMEZ Payer ID:[id number] (NAIC) Type:O Address: [address] [facility] Member Subscriber Plan / Payer (Ef fective 2021-) Name:Pedrito Gomez Relation to Subscriber:Self Name:PEDRTIO GOMEZ Payer ID:[id number] ([facility]) Type:O Address: [address] [facility] Member Subscriber Plan / Payer (Ef fective 2021-) Name:Pedrito Gomez A Relation to Subscriber:Self Name:PEDRITO GOMEZ Payer ID:[id number] ([facility]) Type:O Address: [address] CARE Member Subscriber Plan / Payer (Ef fective 2021-) Name:Pedrito Gomez A Relation to Subscriber:Self Name:PEDRITO GOMEZ Payer ID:[id number] (NAIC) Type:O Address: [address] [facility] Member Subscriber Plan / Payer (Ef fective 2021-) Name:Pedrito Gomez A Relation to Subscriber:Self Name:PEDRITO GOMEZ Payer ID:[id number] (NAIC) Type:O Address: [address] [facility] Member Subscriber Plan / Payer (Ef fective 2021-) Name:Pedrito Gomez A Relation to Subscriber:Self Name:PEDRITO GOMEZ Payer ID:[id number] (NAIC) Type:O Address: [address] [facility] Member Subscriber Plan / Payer (Ef fective 2021-Present) Name:Pedrito Gomez A Relation to Subscriber:Self Name:PEDRITO GOMEZ Payer ID:[id number] (NAIC) Type:HMO Address: [address] [facility] Member Subscriber Plan / Payer (Ef fective 2021-) Name:Pedrito Gomez A Relation to Subscriber:Self Name:PEDRITO GOMEZ Payer ID:[id number] ([facility]) Type:O Address: [address] [facility] Member Subscriber Plan / Payer (Ef fective 2021-Present) Name:Pedrito Gomez Relation to Subscriber:Self Name:PEDRITO GOMEZ Payer ID:[id number] (NAIC) Type:HMO Address: [address] [facility] Member Subscriber Plan / Payer (Ef fective 2021-Present) Name:Pedrito Gomez Relation to Subscriber:Self Name:PEDRITO GOMEZ Payer ID:[id number] (NA) Type:O Address: [address] [facility] Member Subscriber Plan / Payer (Ef fective 2021-) Name:Pedrito Gomez Relation to Subscriber:Self Name:PEDRITO GOMEZ Payer ID:[id number] (NAIC) Type:O Address: [address] [facility] Member Subscriber Plan / Payer (Ef fective 2021-) Name:Pedrito Gomez Relation to Subscriber:Self Name:PEDRITO GOMEZ Payer ID:[id number] ([facility]) Type:O Address: [address] CARE Member Subscriber Plan / Payer (Ef fective 2021-) Name:Pedrito Gomez A Relation to Subscriber:Self Name:PEDRITO GOMEZ Payer ID:[id number] (NAIC) Type:O Address: [address] [facility] Member Subscriber Plan / Payer (Ef fective 2021-) Name:Pedrito Gomez A Relation to Subscriber:Self Name:PEDRITO GOMEZ Payer ID:[id number] (NAIC) Type:O Address: [address] [facility] Member Subscriber Plan / Payer (Ef fective 2021-) Name:Pedrito Gomez A Relation to Subscriber:Self Name:PEDRITO GOMEZ Payer ID:[id number] (NAIC) Type:O Address: [address] [facility] Member Subscriber Plan / Payer (Ef fective 2021-Present) Name:Pedrito Gomez A Relation to Subscriber:Self Name:PEDRITO GOMEZ Payer ID:[id number] ([facility]) Type:O Address: [address] [facility] Member Subscriber Plan / Payer (Ef fective 2021-) Name:Pedrito Gomez A Relation to Subscriber:Self Name:PEDRITO GOMEZ Payer ID:[id number] ([facility]) Type:O Address: [address] [facility] Member Subscriber Plan / Payer (Ef fective 2021-Present) Name:Pedrito Gomez Relation to Subscriber:Self Name:PEDRITO GOMEZ Payer ID:[id number] (NA) Type:HMO Address: [address] [facility] Member Subscriber Plan / Payer (Ef fective 2021-Present) Name:Pedrito Gomez Relation to Subscriber:Self Name:PEDRITO GOMEZ Payer ID:[id number] (NA) Type:O Address: [address] [facility] Member Subscriber Plan / Payer (Ef fective 2021-) Name:Pedrito Gomez Relation to Subscriber:Self Name:PEDRITO GOMEZ Payer ID:[id number] (NAIC) Type:O Address: [address] [facility] Member Subscriber Plan / Payer (Ef fective 2021-) Name:Pedrito Gomez Relation to Subscriber:Self Name:PEDRITO GOMEZ Payer ID:[id number] (NAIC) Type:O Address: [address] CARE Member Subscriber Plan / Payer (Ef fective 2021-) Name:Pedrito Gomez Milly Relation to Subscriber:Self Name:PEDRITO GOMEZ Payer ID:[id number] (NAIC) Type:O Address: [address] [facility] Member Subscriber Plan / Payer (Ef fective 2021-) Name:Pedrito Gomez A Relation to Subscriber:Self Name:PEDRITO GOMEZ Payer ID:[id number] (NAIC) Type:O Address: [address] [facility] Member Subscriber Plan / Payer (Ef fective 2021-) Name:Pedrito Gomez A Relation to Subscriber:Self Name:PEDRITO GOMEZ Payer ID:[id number] (NAIC) Type:O Address: [address] [facility] Member Subscriber Plan / Payer (Ef fective 2021-Present) Name:Pedrito Gomez A Relation to Subscriber:Self Name:PEDRITO GOMEZ Payer ID:[id number] (NA) Type:O Address: [address] [facility] Member Subscriber Plan / Payer (Ef fective 2021-) Name:Pedrito Gomez A Relation to Subscriber:Self Name:PEDRITO GOMEZ Payer ID:[id number] ([place]) Type:[place] Address: [address] [facility] Member Subscriber Plan / Payer (Ef fective 2021-) Name:Pedrito Gomez A Relation to Subscriber:Self Name:PEDRITO GOMEZ Payer ID:[id number] (NA) Type:O Address: [address] [facility] Member Subscriber Plan / Payer (Ef fective 2021-Present) Name:Pedrito Gomez Relation to Subscriber:Self Name:PEDRITO GOMEZ Payer ID:[id number] (NA) Type:HMO Address: [address] [facility] Member Subscriber Plan / Payer (Ef fective 2021-) Name:Pedrito Gomez Milly Relation to Subscriber:Self Name:PEDRITO GOMEZ Payer ID:[id number] (NAIC) Type:HMO Address: [address] [facility] Member Subscriber Plan / Payer (Ef fective 2021-) Name:Pedrito Gomez Relation to Subscriber:Self Name:PEDRITO GOMEZ Payer ID:[id number] (NA) Type:O Address: [address] C[facility] Member Subscriber Plan / Payer (Ef fective 2021-) Name:Pedrito Gomez Milly Relation to Subscriber:Self Name:PEDRITO GOMEZ Payer ID:[id number] (NAIC) Type:O Address: [address] [facility] Member Subscriber Plan / Payer (Ef fective 2021-) Name:Pedrito Gomez A Relation to Subscriber:Self Name:PEDRITO GOMEZ Payer ID:[id number] (NAIC) Type:O Address: [address] [facility] Member Subscriber Plan / Payer (Ef fective 2021-) Name:Pedrito Gomez A Relation to Subscriber:Self Name:PEDRITO GOMEZ Payer ID:[id number] (NAIC) Type:O Address: [address] [facility] Member Subscriber Plan / Payer (Ef fective 2021-Present) Name:Pedrito Gomez A Relation to Subscriber:Self Name:PEDRITO GOMEZ Payer ID:[id number] ([facility]) Type:[place] Address: [address] [facility] Member Subscriber Plan / Payer (Ef fective 2021-Present) Name:Pedrito Gomez A Relation to Subscriber:Self Name:PEDRITO GOMEZ Payer ID:[id number] ([place]) Type:[place] Address: [address] [facility] Member Subscriber Plan / Payer (Ef fective 2021-Present) Name:Pedrito Gomez A Relation to Subscriber:Self Name:PEDRITO GOMEZ Payer ID:[id number] (NAIC) Type:O Address: [address] [facility] Member Subscriber Plan / Payer (Ef fective 2021-Present) Name:Pedrito Gomez Relation to Subscriber:Self Name:PEDRITO GOMEZ Payer ID:[id number] (NA) Type:O Address: [address] Member Subscriber Plan / Payer (Ef fective 2021-Present) Name:Pedrito Gomez Relation to Subscriber:Self Name:PEDRITO GOMEZ Payer ID:[id number] (NAIC) Type:O Address: [address] Member Subscriber Plan / Payer (Ef fective 2021-Present) Name:Pedrito Gomez Relation to Subscriber:Self Name:PEDRITO GOMEZ Payer ID:[id number] (NAIC) Type:O Address: [address] Advance Directives Documents on File Type Date Recorded Patient Optical Effects Layout Person Expl anation Adv Directive/Living Will/POA 04/24/2022 2:32 PM * Full Code (Latest Code Status on File) Date Activated Date Inactivated Comments 09/03/2024 12:05 AM 09/03/2024 1:08 PM * Full Code Date Activated Date Inactivated Comments 04/12/2022 7:44 AM 04/23/2022 5:22 PM Care Teams Manager Statistical Relationship Specialty Start Date End Date Solange Sandoval MD [address] [id number] PCP - General Internal Medicine 09/02/24
--- OUTSIDE RECORDS SUMMARY | 2025-04-20 00:53 | XMS_ITS | Clinical Summary ---
Author Organization [facility] Address [address] [place] [id number] Care Team Providers Care Waste Cotton Cleaner Name Role Phone Solange Sandoval MD Primary [...] on file Legal Sex Female 6:59 PM BOX ATTACHER Gender Identity Not on file Sexual Orientation Not on file Last Filed Vital Signs Vital Sign Reading Time Taken Comments Blood Pressure 132/66 09/01/2024 10:22 PM BOX ATTACHER Pulse 79 09/01/2024 10:22 PM BOX ATTACHER Temperature 36.6 C (97.9 F) 09/01/2024 10:22 PM BOX ATTACHER Respiratory Rate 18 09/01/2024 10:22 PM BOX ATTACHER Oxygen Saturation 95% 09/01/2024 10:22 PM BOX ATTACHER Inhaled Oxygen Concentration - - Weight 69.9 kg (154 lb) 09/01/2024 4:58 PM BOX ATTACHER Height 162.6 cm (5' 4) 09/01/2024 4:58 PM BOX ATTACHER Body Mass Index 26.43 09/01/2024 4:58 PM BOX ATTACHER Plan of Treatment Health Maintenance Due Date [...] patient's age to complete this topic Insurance [facility] Care Teams Waste Cotton Cleaner Relationship Specialty Start Date End Date Solange Sandoval MD [facility] [place] [id number] PCP - General INTERNAL MEDICINE 08/06/24
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
[2025-04-20 06:48] VITALS: BP 140/86; PULSE 93; RESP 16; TEMP 36.4; O2SAT 97
[2025-04-20] MEDS: LACTATED RINGERS 1,000 ML 150 ML IV CONT (06:58)
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
--- NOTE | 2025-04-20 08:13 | PM.HPGS ---
History of Present Illness History of Present Illness Consent: Risks, benefits, and alternatives have been discussed and questions answered. Patient agrees to proceed with procedure. Chief complaint: Encounter for screening for malignant neoplasm of Narrative: Katiuska Johnson is a 49 year old female here for screening colonoscopy, last in 2021 Review of Systems Review of Systems: All systems reviewed & are unremarkable except as noted in HPI and below PMFSH Past Medical History Medical History (Updated 04/20/25 @ 08:15 by Neville Olivarez MD) Colon cancer screening Traumatic brain injury PTSD (post-traumatic stress disorder) Thrombosis of right iliac artery Hyperlipidemia Hypertension Vulval lesion Anxiety Depression Cervical dysplasia Pneumonia 2004 Vaginal delivery 2008 Missed 2006 Surgical History Surgical History History of surgery on lower extremity History of laparotomy H/O umbilical hernia repair (~2011) H/O LEEP 12/12/2014 Hx of laparoscopy 1990 Family History Family History Father Hypertension Patient's father is Family history of elevated blood lipids Family history of lung cancer Mother Family history of elevated blood lipids Family history of malignant neoplasm of cervix Family history of coronary artery disease Hypertension Acute myocardial infarction Depression Cerebrovascular accident Family history of arthritis Family history of lung cancer Family history of malignant neoplasm of male breast Grandparent Family history of malignant neoplasm of ovary, Onset Age: 56 Other Family history of development disorder Family history of heart disease in male family member before age 55 Family history of malignant neoplasm Social History Social History Smoking status: Never smoker Second hand tobacco smoke exposure: No Smoking end date: 10/12/06 Alcohol intake: current Drinks per week: 6 Alcohol use details: OCCASIONALLY Substance use: current Substance use type: marijuana Other substance usage details: MEDICAL MARIJUANA Lack of Transportation: No Lack of Food: Never True Current Housing: I Have Housing Concerned About Future Housing: No Difficulty Paying Gas/Electric Bills: No Difficulty Paying for Meds: No Currently Unemployed: No Education: Bachelor's Degree Difficulty w/ Childcare or Family Care: No Living arrangements: with family Gender identity (if verbalized by the patient): Female Spiritual care concerns: No Meds Home Medications and Allergies Home Medications ?Medication ?Instructions ?Recorded ?Confirmed ?Type fluoxetine 40 mg capsule 40 mg PO DAILY 09/20/21 04/20/25 History bupropion HCl 150 mg 24 hr tablet, 150 mg PO QAM 03/21/22 04/20/25 History extended release (Wellbutrin XL) trazodone 50 mg tablet 100 mg PO HS 03/21/22 04/20/25 History buspirone 15 mg tablet 15 mg PO TID 09/24/22 04/20/25 History prazosin 1 mg capsule 1 mg PO QHS 05/18/23 04/20/25 History atorvastatin 10 mg tablet 10 mg PO DAILY #90 tabs 10/09/23 04/20/25 Rx lisinopril 20 mg tablet 20 mg PO DAILY #90 tabs 10/26/23 04/20/25 Rx diltiazem HCl 180 mg See Rx Instructions .Route 01/22/24 04/20/25 Rx capsule,extended release 24 hr, .COMPLEX #90 caps controlled Allergies Allergy/AdvReac Type Severity Reaction Status Date / Time codeine Allergy Intermediate Hives Verified 03/27/25 15:56 Vital Signs Vital Signs - 24 hr 04/20/25 06:48 Temperature 97.6 F Pulse Rate 93 Respiratory Rate 16 Blood Pressure 140/86 Pulse Oximetry 97 Oxygen Delivery Room Air Exam Const: General: comfortable and no acute distress HENMT: Face/Nose/Sinus: Normal nares present Eyes: General: appearance normal, both eyes and all related structures Neck: Neck: no JVD Resp: Auscultation: clear to auscultation bilaterally Cardio: Rate: regular rate Rhythm: regular rhythm GI: Inspection: non-distended GI Palp: Yes Soft to palpation Skin: General skin exam: normal color Neuro: Speech: normal speech Extrem: General: normal to inspection Psych: Mental Status: mental status grossly normal Assessment and Plan Assessment and plan (1) Colon cancer screening: Code(s): Z12.11 - Encounter for screening for malignant neoplasm of colon Status: Acute Assessment and Plan: colonoscopy
[2025-04-20 08:35] VITALS: BP 99/58; PULSE 69; RESP 22; O2SAT 98
[2025-04-20 08:45] VITALS: BP 104/62; PULSE 63; RESP 22; O2SAT 100
[2025-04-20 08:55] VITALS: BP 123/83; PULSE 65; RESP 24; O2SAT 100
== END 2025-04-20 09:07 | disposition home or self-care (01) ==
PROVIDERS: PCP Internal Medicine; Referring Provider Internal Medicine; Visit Provider Internal Medicine Gastroenterology
PROC: 0DJD8ZZ Inspection of Lower Intestinal Tract, Via Natural or Artificial Opening Endoscopic (ICD-10-PCS; CPT 45378; principal; 2025-04-20 08:30)
DX: Z12.11 Encounter for screening for malignant neoplasm of colon (principal); K64.8 Other hemorrhoids; E78.5 Hyperlipidemia, unspecified; I10 Essential (primary) hypertension; F41.9 Anxiety disorder, unspecified; F32.A Depression, unspecified; F43.10 Post-traumatic stress disorder, unspecified; F12.90 Cannabis use, unspecified, uncomplicated; Z98.890 Other specified postprocedural states; Z86.718 Personal history of other venous thrombosis and embolism; Z80.1 Family history of malignant neoplasm of trachea, bronchus and lung; Z80.49 Family history of malignant neoplasm of other genital organs; Z80.3 Family history of malignant neoplasm of breast; Z80.41 Family history of malignant neoplasm of ovary; Z82.49 Family history of ischemic heart disease and other diseases of the circulatory system
CPT/HCPCS: 45378; J2003; J2704; J7120